=== PATIENT | male | born 1935 | race African-American/Black ===

== ENCOUNTER → 2016-06-05 | Outpatient (CLI) | payer BC ==
[~2016-06-05] MED LIST: ALL300 PO; AMLO5CAP2 PO; APR25 PO; ASTNS; CETICHW4; CMD25 PO; CMD5 PO; FISHOIL PO; FRS/40 PO; MULT-190 PO; MULT-506 PO; POTA-335 PO; WARF3TAB6 PO; [UNRECOGNIZED DRUG - CODE] PO
[2016-06-05 13:36] LABS: HEMATOCRIT 34.3 % (42-52); MEAN CELL VOLUME 88.6 fL (80-100); MEAN CORPUSCULAR HEMOGLOBIN 29.5 pg (25-34); MEAN CORPUSCULAR HGB CONC 33.2 g/dl (32-36); MEAN PLATELET VOLUME 13.1 fL (7.4-10.4); PLATELET COUNT 154 K/uL (130-400); RED BLOOD COUNT 3.87 M/uL (4.7-6.1); WHITE BLOOD COUNT 4.14 K/uL (4.8-10.8)
[2016-06-05 13:41] LABS: URINE APPEARANCE TURBID (CLEAR); URINE BILIRUBIN NEG (NEG); URINE COLOR YELLOW; URINE EPITHELIAL CELL AUTO >30 /lpf (0-5); URINE NITRITE NEG (NEG); URINE SPECIFIC GRAVITY 1.007 (1.000-1.030); UROBILINOGEN NEG (NEG)
[2016-06-05 13:54] LABS: MANUAL MICROSCOPIC REQUIRED? NO; REVIEW REQ? NO
[2016-06-05 14:05] LABS: URINE PROTIEN/CREAT RATIO 0.8 (0-0.2); URINE TOTAL PROTEIN 58.4 mg/dl (0-11.9)
[2016-06-05 14:07] LABS: BLOOD UREA NITROGEN 40 mg/dl (7-18); BUN/CREATININE RATIO 20.2 (10-20); CARBON DIOXIDE 26 mmol/L (21-32); CHLORIDE 108 mmol/L (98-107); GLUCOSE 102 mg/dl (70-99); PHOSPHORUS 3.8 mg/dl (2.5-4.9); POTASSIUM 4.3 mmol/L (3.5-5.1); SODIUM 140 mmol/L (136-145)
== END | disposition home or self-care (01) ==
LOC: C.LABBC 10:51
PROVIDERS: ATTEND Internal Medicine Nephrology
DX: I12.9 Hypertensive chronic kidney disease with stage 1 through stage 4 chronic kidney disease, or unspecified chronic kidney disease (principal); R80.9 Proteinuria, unspecified; E55.9 Vitamin D deficiency, unspecified; N18.3 Chronic kidney disease, stage 3 (moderate)

== ENCOUNTER → 2016-06-24 | Outpatient (CLI) | payer BC | END | disposition home or self-care (01) | LOC: C.LAB1850 09:47 | PROVIDERS: ATTEND Internal Medicine Nephrology | DX: R80.9 Proteinuria, unspecified (principal); I12.9 Hypertensive chronic kidney disease with stage 1 through stage 4 chronic kidney disease, or unspecified chronic kidney disease; N18.3 Chronic kidney disease, stage 3 (moderate); E55.9 Vitamin D deficiency, unspecified ==

== ENCOUNTER → 2016-07-13 | Outpatient (CLI) | payer BC ==
[2016-07-13 16:43] LABS: URINE APPEARANCE TURBID (CLEAR); URINE BILIRUBIN NEG (NEG); URINE COLOR YELLOW; URINE EPITHELIAL CELL AUTO 0-5 /lpf (0-5); URINE NITRITE NEG (NEG); URINE SPECIFIC GRAVITY 1.013 (1.000-1.030); UROBILINOGEN NEG (NEG)
[2016-07-13 16:44] LABS: MANUAL MICROSCOPIC REQUIRED? NO; REVIEW REQ? NO
== END | disposition home or self-care (01) ==
LOC: C.LAB1850 15:30
PROVIDERS: ATTEND Internal Medicine Nephrology
DX: R30.0 Dysuria (principal)

== ENCOUNTER → 2016-09-16 | Outpatient (CLI) | payer BC ==
[2016-09-16 17:08] LABS: URINE APPEARANCE TURBID (CLEAR); URINE BILIRUBIN NEG (NEG); URINE COLOR YELLOW; URINE NITRITE NEG (NEG); URINE PH 5.5 (4.5-7.5); URINE SPECIFIC GRAVITY 1.012 (1.000-1.030); UROBILINOGEN NEG (NEG); ZZUR CULT IF INDIC CLEAN CATCH YES
[2016-09-16 17:15] LABS: MANUAL MICROSCOPIC REQUIRED? NO; REVIEW REQ? NO
[2016-09-16 17:23] LABS: BLOOD UREA NITROGEN 25 mg/dl (7-18); BUN/CREATININE RATIO 14.4 (10-20); CALCIUM 8.5 mg/dl (8.5-10.1); CARBON DIOXIDE 29 mmol/L (21-32); CHLORIDE 112 mmol/L (98-107); GLUCOSE 76 mg/dl (70-99); POTASSIUM 4.1 mmol/L (3.5-5.1); SODIUM 147 mmol/L (136-145)
[2016-09-16 17:24] LABS: PHOSPHORUS 2.5 mg/dl (2.5-4.9)
[2016-09-16 17:49] LABS: HEMATOCRIT 33.1 % (42-52); MEAN CELL VOLUME 91.9 fL (80-100); MEAN CORPUSCULAR HGB CONC 32.6 g/dl (32-36); MEAN PLATELET VOLUME 12.5 fL (7.4-10.4); PLATELET COUNT 112 K/uL (130-400); PLT ESTIMATE DECREASED; WHITE BLOOD COUNT 3.44 K/uL (4.8-10.8)
== END ==
LOC: C.LAB1850 15:13
PROVIDERS: ATTEND Internal Medicine Nephrology
DX: I10 Essential (primary) hypertension (principal); R80.9 Proteinuria, unspecified; N18.3 Chronic kidney disease, stage 3 (moderate); E55.9 Vitamin D deficiency, unspecified

== ENCOUNTER → 2017-01-25 | Outpatient (CLI) | payer BC ==
[~2017-01-25] MED LIST changes: -CMD25 PO; -CMD5 PO
--- NOTE | 2017-01-25 10:50 | DIAGNOSTIC IMAGING REPORT ---
RENAL ULTRASOUND HISTORY: R31.29 Hematuria, [id number] COMPARISON: Renal ultrasound 04/27/2013. FINDINGS: Right kidney: 10.7 cm. No hydronephrosis. Slight increased echogenicity within the renal cortex. There is normal cortical thickness. Left kidney: 11.4 cm. No hydronephrosis. Slight increased echogenicity within the renal cortex. There is normal cortical thickness. Bladder: Mildly thickened and trabeculated bladder. The prostate is mildly enlarged and protrudes into the bladder base. Small amount of debris layering within the bladder. The ureters jets are not identified. There is a multiloculated cystic lesion within the left upper quadrant anteriorly. This is indeterminate by ultrasound. This measures 13 x 12 x 7 cm. IMPRESSION: 1. No hydronephrosis. 2. Slight increased cortical echogenicity bilaterally consistent with medical renal disease. 3. Mildly thickened and trabeculated bladder wall. The prostate is mildly enlarged. Small amount of debris within the bladder may be due to stasis or infection. Recommend correlation with urinalysis. 4. A 13 x 12 x 7 cm multiloculated cystic lesion within the left upper quadrant anteriorly. This is indeterminate by ultrasound. Dedicated nonemergent abdomen and pelvis CT with contrast is recommended for further evaluation. Electronically signed by: Bg Lewis M.D. 01/25/2017 10:49 AM Dictated Date/Time: 01/25/2017 10:43 AM
== END | disposition home or self-care (01) ==
LOC: C.ULTR 09:56
PROVIDERS: ATTEND Urology
DX: R31.29 Other microscopic hematuria (principal); N28.9 Disorder of kidney and ureter, unspecified

== ENCOUNTER → 2017-01-25 | Outpatient (CLI) | payer BC | END | disposition home or self-care (01) | LOC: C.LABSPEC 10:36 | PROVIDERS: ATTEND Urology | DX: R31.29 Other microscopic hematuria (principal) ==

== ENCOUNTER → 2017-03-22 | Outpatient (CLI) | payer BC ==
[2017-03-22 17:49] LABS: BLOOD UREA NITROGEN 25 mg/dl (7-18); BUN/CREATININE RATIO 14.9 (10-20)
== END | disposition home or self-care (01) ==
LOC: C.LAB1850 16:24
PROVIDERS: ATTEND Urology
DX: N28.1 Cyst of kidney, acquired (principal)

== ENCOUNTER → 2017-03-24 | Outpatient (CLI) | payer BC ==
--- NOTE | 2017-03-24 10:53 | DIAGNOSTIC IMAGING REPORT ---
ABDOMEN AND PELVIS CT WITH IV CONTRAST, RENAL PROTOCOL CT DOSE: 982.80 mGycm HISTORY: N28.1 Renal cyst, left possible left cystic lesion seen on US at TECHNIQUE: Multiaxial CT images of the abdomen and pelvis were performed following the use of intravenous contrast. A dose lowering technique was utilized adhering to the principles of ALARA. COMPARISON STUDY: Renal ultrasound 01/25/2017. FINDINGS: Small calcified scarlike density within the base of the lingula. Pacemaker wires are noted. Linear scarlike densities within the right lower lobe with mild right pleural thickening which is also likely chronic. No pneumoperitoneum. No pneumatosis. No suspicious lytic or blastic osseous lesions. A 9 mm hypodense lesion within the right hepatic dome is too small to characterize. The spleen, adrenal glands, pancreas, and gallbladder are unremarkable. No retroperitoneal lymphadenopathy. Tiny fat-containing umbilical hernia. The visualized appendix is unremarkable. Within the left midabdomen there is redemonstration of the 12.9 x 7.2 cm cystic structure. This contains a few thin septations. This abuts and displaces a few loops of small bowel. No soft tissue component identified with this abnormality. No suspicious filling defects seen within the bilateral renal collecting systems. In addition, within the right lower quadrant there is only partially visualized cystic structure which demonstrates minimal surrounding fat stranding. This is best seen on image 271 and measures 3.5 cm. This could represent a mildly distended small bowel loop. IMPRESSION: 1. Redemonstration of the 12.9 x 7.2 cm septated cystic structure within the left midabdomen. This is not associated with the left kidney. Therefore, this could represent a lymphangioma, duplication cyst, or less likely a walled off urinoma. 2. There is also partially imaged 3.5 cm cystic structure within the right lower quadrant. This appears to demonstrate minimal surrounding fat stranding could represent a distended loop of small bowel. Therefore, follow-up abdomen and pelvis CT with oral contrast is recommended to exclude bowel pathology. 3. These findings were called/faxed to the referring physician's office. Electronically signed by: Bg Lewis M.D. 03/24/2017 10:51 AM Dictated Date/Time: 03/24/2017 10:40 AM
== END | disposition home or self-care (01) ==
LOC: C.CTS 09:46
PROVIDERS: ATTEND Urology
DX: N28.1 Cyst of kidney, acquired (principal)

== ENCOUNTER → 2017-08-12 | Outpatient (CLI) | payer BC ==
[~2017-08-12] MED LIST changes: -MULT-506 PO; -WARF3TAB6 PO; +WARF4TAB8 PO
[2017-08-12 17:06] LABS: MEAN CORPUSCULAR HGB CONC 33.2 g/dl (32-36)
[2017-08-12 17:16] LABS: ALBUMIN 3.2 gm/dl (3.4-5.0); ALT/SGPT 20 U/L (12-78); AST/SGOT 23 U/L (15-37); BLOOD UREA NITROGEN 37 mg/dl (7-18); CALCIUM 8.5 mg/dl (8.5-10.1); CARBON DIOXIDE 27 mmol/L (21-32); CREATININE 1.95 mg/dl (0.60-1.40); GLUCOSE 78 mg/dl (70-99); SODIUM 144 mmol/L (136-145)
[2017-08-12 17:19] LABS: ALKALINE PHOSPHATASE 55 U/L (45-117); PHOSPHORUS 3.2 mg/dl (2.5-4.9); TOTAL PROTEIN 6.9 gm/dl (6.4-8.2)
[2017-08-12 17:21] LABS: HEMOGLOBIN 10.3 g/dL (14.0-18.0); MEAN CELL VOLUME 89.6 fL (80-100); MEAN CORPUSCULAR HEMOGLOBIN 29.8 pg (25-34); RED CELL DISTRIBUTION WIDTH CV 14.5 % (11.5-14.5); RED CELL DISTRIBUTION WIDTH SD 47.7 fL (36.4-46.3); WHITE BLOOD COUNT 3.78 K/uL (4.8-10.8)
[2017-08-12 17:36] LABS: PLATELET COUNT 127 K/uL (130-400)
== END | disposition home or self-care (01) ==
LOC: C.LABBC 13:46
PROVIDERS: ATTEND Internal Medicine Nephrology
DX: I10 Essential (primary) hypertension (principal); R80.9 Proteinuria, unspecified; E55.9 Vitamin D deficiency, unspecified; N18.3 Chronic kidney disease, stage 3 (moderate); R31.29 Other microscopic hematuria; I42.9 Cardiomyopathy, unspecified; I48.91 Unspecified atrial fibrillation

== ENCOUNTER → 2017-08-16 | Outpatient (CLI) | payer BC | END | disposition home or self-care (01) | LOC: C.LABSPEC 09:09 | PROVIDERS: ATTEND Internal Medicine Nephrology | DX: I12.9 Hypertensive chronic kidney disease with stage 1 through stage 4 chronic kidney disease, or unspecified chronic kidney disease (principal); R80.9 Proteinuria, unspecified; E55.9 Vitamin D deficiency, unspecified; N18.3 Chronic kidney disease, stage 3 (moderate); R31.29 Other microscopic hematuria ==

== ENCOUNTER → 2017-11-30 | Outpatient (CLI) | payer BC ==
--- NOTE | 2017-11-30 12:07 | DIAGNOSTIC IMAGING REPORT ---
ABD/PELVIS ORAL CONT ONLY CLINICAL HISTORY: 82 years-old Male presenting with K66.8 Abdominal cyst. TECHNIQUE: Multidetector CT of the abdomen and pelvis was performed after the administration of oral contrast only. IV contrast: None. A dose lowering technique was used consistent with the principles of ALARA (as low as reasonably achievable). COMPARISON: 03/24/2017. CT DOSE (mGy.cm): The estimated cumulative dose is 321.88 mGy.cm. FINDINGS: Physiognomist topogram: Partially visualized implanted cardiac defibrillator leads to the right atrium, right ventricular apex, and coronary sinus. Lung bases: Architectural distortion with focal bronchiectasis, subpleural consolidation, and overlying pleural thickening in the posterior basal right lower lobe, likely cicatrizing atelectasis. Multichamber enlargement of the heart. Coronary artery and aortic valve calcification. No pericardial or pleural effusion. Liver: Normal morphology. Normal density. Biliary: No gross biliary ductal dilatation allowing for noncontrast technique. Normal gallbladder. Pancreas: Normal noncontrast appearance. Spleen: Normal noncontrast appearance. Adrenal glands: Normal noncontrast appearance. Kidneys and ureters: Normal noncontrast appearance. No nephrolithiasis. No hydronephrosis. Normal ureters. Bladder: Circumferential bladder wall thickening. The bladder contains a large amount of gas. Numerous bladder diverticuli, which also contains gas. There is no gross communication with bowel though the etiology of the gas is uncertain. Pelvic organs: Prostate enlargement likely secondary to benign prostatic hyperplasia. Bowel: Oral contrast has transited to the distal sigmoid colon. Diverticulosis of the sigmoid and descending colon without evidence of wall thickening or pericolonic inflammatory change. No extravasation of oral contrast. The appendix is normal. No bowel obstruction. Redundancy and incomplete distention likely accounts for the appearance of the gastric fundus. Peritoneal cavity: Interval decrease in size of the cystic lesion centered in the left aspect of the small bowel mesentery. This now measures 8.7 x 6.7 cm, previously 12.9 x 7.2 cm. Septations are not well appreciated on this noncontrast examination. The density is again consistent with simple fluid. No evidence of surrounding inflammatory change. No free fluid or gas. Lymph nodes: No gross lymphadenopathy allowing for noncontrast technique. Vasculature: Atherosclerosis of the normal caliber abdominal aorta. Abdominal wall: Mild diffuse body wall edema. Small fat-containing umbilical hernia. Focal infiltration in the subcutaneous tissue of the left buttock with suggestion of a fluid collection measuring approximate 4 cm. This is centered within the subcutaneous fat. Allowing for image quality degradation, there may be macroscopic fat-containing within this. Musculoskeletal: Focal degenerative changes at L5-S1. IMPRESSION: 1. Interval decreased size of the abdominal cyst. This is suspected to be a benign entity and may represent a mesenteric duplication cyst, lymphangioma, or resolving urinoma or seroma. This is suboptimally evaluated without intravenous contrast. 2. Wall thickening of the bladder with numerous bladder diverticuli and intravesical gas. Correlate clinically with a history of recent instrumentation/catheterization to explain the presence of gas. No gross evidence of a fistulous connection with bowel. The configuration of the bladder may suggest a neurogenic bladder or be due to chronic outlet obstruction in the setting of prostatomegaly. 3. Diverticulosis. No evidence of diverticulitis. 4. 4 cm fluid collection in the subcutaneous tissue of the left buttock. This may represent an abscess or fat necrosis. This is suboptimally evaluated given the lack of intravenous contrast and image quality. Further violation with dedicated ultrasound to be considered. Correlate with physical exam. The report will be called/faxed according to standard departmental protocol. Electronically signed by: Aj Hernandez M.D. 11/30/2017 12:06 PM Dictated Date/Time: 11/30/2017 11:53 AM
== END | disposition home or self-care (01) ==
LOC: C.CTS 09:37
PROVIDERS: ATTEND Physician Assistant Medical
DX: K66.8 Other specified disorders of peritoneum (principal); K57.90 Diverticulosis of intestine, part unspecified, without perforation or abscess without bleeding

== ENCOUNTER 2018-10-10 11:51 | Inpatient (IN) ==
[2018-10-10] MEDS ORDERED: SODIUM CHLORIDE 0.9% 500 ML IV SCH (12:30)
[2018-10-10 12:48] LABS: iSTAT Creatinine 1.7 mg/dl (0.6-1.3); iSTAT Hemoglobin 9.5 g/dl (14.0-18.0); iSTAT Ionized Calcium 1.19 mmol/l (1.12-1.32); iSTAT Potassium 3.7 mEq/L (3.3-5.0)
[2018-10-10 12:49] LABS: Mean Corpuscular Hgb Conc 31.5 g/dL (32-36)
[2018-10-10 12:58] LABS: Alanine Aminotransferase 13 U/L (12-78); Albumin Level 2.7 gm/dl (3.4-5.0); Aspartate Aminotransferase 24 U/L (15-37); BUN Creatinine Ratio 14.7 (10-20); Blood Urea Nitrogen 26 mg/dl (7-18); Calcium 8.6 mg/dl (8.5-10.1); Carbon Dioxide 28 mmol/L (21-32); Chloride 110 mmol/L (98-107); Est GFR (African American) 41.4; Est GFR (Non-African American) 35.7; Glucose 98 mg/dl (70-99); Potassium 3.7 mmol/L (3.5-5.1); Sodium 144 mmol/L (136-145)
[2018-10-10 13:02] LABS: INR 1.8 (0.9-1.1); Partial Thromboplastin Ratio 1.3; Partial Thromboplastin Time 34.3 Seconds (21.0-31.0); Prothrombin Time 17.3 Seconds (9.0-12.0)
[2018-10-10 13:08] LABS: Albumin Globulin Ratio 0.6 (0.9-2); Alkaline Phosphatase 56 U/L (45-117); Bilirubin,Total 0.4 mg/dl (0.2-1); Globulin 4.7 gm/dl (2.5-4.0); Total Protein 7.4 gm/dl (6.4-8.2); Troponin I 0.023 ng/ml (0-0.045)
--- NOTE | 2018-10-10 13:09 | XRay Report ---
XR chest 1V portable CLINICAL HISTORY: weakness condition COMPARISON STUDY: 08/25/2018 FINDINGS: Mild stable cardiomegaly. Implantable cardiac pacemaker/fibrillator. Chronic right infrahil ar atelectatic change. Lungs are clear. IMPRESSION: No acute processes. Chronic and postoperative change. The above report was generated using voice recognition software. It may contain grammatical, syntax or spelling errors. Electronically signed by: Deni Harrison M.D. 10/10/2018 1:08 PM
[2018-10-10 13:19] LABS: Hematocrit (blood only) 27.3 % (42-52); Hemoglobin 8.6 g/dL (14.0-18.0); Mean Corpuscular Volume 87.8 fL (80-100); RDW Coefficient of Variation 16.2 % (11.5-14.5); RDW Standard Deviation 52.2 fL (36.4-46.3); Red Blood Count 3.11 M/uL (4.7-6.1); White Blood Count 4.07 K/uL (4.8-10.8)
--- NOTE | 2018-10-10 13:20 | CT Scan Report ---
CT head/brain wo con CT DOSE: 691.05 mGy.cm HISTORY: Trauma weakness, fall, coumadin TECHNIQUE: Multiaxial CT images of the head were performed without the use of intravenous contrast. A dose lowering technique was utilized adhering to the principles of ALARA. Comparison: None. Findings: The paranasal sinuses and mastoid air cells are clear. The calvarium and skull base are int act. The ventricles and sulci are within normal limits. There is no mass, hematoma, midline shift, or acute infarct. 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 Moderate chronic small vessel change the periventricular and deep white matter regions. No evidence for acute intracranial hemorrhage. Impression: No acute intracranial abnormality. 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 The above report was generated using voice recognition software. It may contain grammatical, syntax or spelling errors. Electronically signed by: Deni Harrison M.D. 10/10/2018 1:19 PM
[2018-10-10 13:21] LABS: T4 Free Thyroxine 1.04 ng/dl (0.8-1.6)
[2018-10-10 13:26] LABS: Basophils # (auto) 0.02 K/uL (0-0.2); Basophils % (auto) 0.5 %; Eosinophils # (auto) 0.69 K/uL (0-0.5); Immature Granulocytes # (auto) 0.01 K/uL (0.00-0.02); Immature Granulocytes % (auto) 0.2 %; Lymphocytes # (auto) 0.89 K/uL (1.2-3.4); Lymphocytes % (auto) 21.9 %; Monocytes % (auto) 4.9 %; Neutrophils # (auto) 2.26 K/uL (1.4-6.5); Neutrophils % (auto) 55.5 %; Platelet Count 116 K/uL (130-400); Platelet Estimate Decreased (Normal); RBC Morphology Unremarkable
[2018-10-10 13:50] LABS: Appearance Urine Cloudy (Clear); Bacteria Urine Automated 4+ (Negative); Bilirubin Urine Negative (Negative); Blood Urine Trace (Negative); Color Urine Yellow; Glucose Urine UA Negative (Negative); Ketones Urine Negative (Negative); Leukocyte Esterase Urine 3+ (Negative); Nitrite Urine Positive (Negative); Protein Urine Trace (Negative); RBC Urine Automated 0-4 /hpf (0-4); Specific Gravity Urine 1.015 (1.000-1.030); Urobilinogen Urine Negative (Negative); WBC Urine Automated >30 /hpf (0-5)
--- NOTE | 2018-10-10 15:31 | Emergency Department Note ---
Entered by Anali Lopez acting as a scribe for Rekha Paris MD History of Present Illness General Chief complaint: Fall Stated complaint: OPEN SORE ON BUTT Source: patient and family Mode of arrival: ambulatory Limitations: no limitations History of Present Illness Provider complaint: sore Onset (ago): week(s) (1.5) Location: buttocks and right Pain Consistency: + other (worsening) Quality: + other (black and open) Associated symptoms: + denies other symptoms (neck pain, back pain, hematocheiza), + cough, + loss of appetite and + other (leg swelling); no chest pain and no shortness of breath The patient is an 83 year old male who presents to the ER with complaints of a worsening sore that began 1.5 weeks ago. The patients reports that he fell again yesterday and when she was helping him up, she noticed that he had a black and open sore on his right buttock. The also expresses concern about the patients recent 40 pound weight loss over the past few months. She explains that he has had a loss of appetite. She denies having a colonoscopy recently performed. She states that the patient is on Coumadin for his history of a stroke and PE. The patient denies any chest pain, shortness of breath, neck pain, back pain or hematochezia but notes he has had worsening leg swelling. He also reports he has had a mild cough. He denies a history of diabetes. Home Medications Home Medications Medication Instructions Recorded Confirmed Type donepezil 5 mg tablet 5 mg PO QPM #90 tab 09/12/18 10/10/18 History dutasteride 0.5 mg capsule 0.5 mg PO QAM #90 cap 09/12/18 10/10/18 History furosemide 40 mg tablet 40 mg PO QAM #90 tab 09/12/18 10/10/18 History potassium chloride ER 10 mEq 10 meq PO QAM #90 tab 09/12/18 10/10/18 History tablet,extended release tamsulosin 0.4 mg capsule 0.4 mg PO HS #90 cap 09/12/18 10/10/18 History allopurinol 300 mg tablet 300 mg PO QAM #90 tab 09/14/18 10/10/18 History azelastine 137 mcg (0.1 %) nasal 2 sprays INTRANASAL DAILY PRN ml 09/14/18 10/10/18 History spray aerosol carvedilol 25 mg tablet 25 mg PO BID #180 tab 09/14/18 10/10/18 History ergocalciferol (vitamin D2) 50,000 50,000 units PO MONTHLY #21 cap 09/14/18 10/10/18 History unit capsule warfarin 4 mg tablet 4 mg PO [id number] tab 10/06/18 10/10/18 History amlodipine-benazepril 1 cap PO QAM 10/10/18 10/10/18 History hydralazine 50 mg PO TID 10/10/18 10/10/18 History mirtazapine [Remeron] 7.5 mg PO HS 10/10/18 10/10/18 History warfarin 2 mg PO 3XWK 10/10/18 10/10/18 History Allergies Allergy/AdvReac Type Severity Reaction Status Date / Time No Known Drug Allergies Allergy Verified 10/10/18 13:48 Past Med/Surg History Medical History Permanent atrial fibrillation (Chronic) 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) Chronic anticoagulation (Chronic) H/O: stroke (Chronic) HTN (hypertension) (Chronic) Obstructive sleep apnea CHF (congestive heart failure), NYHA class II (Chronic 07/25/13) LBBB (left bundle branch block) (Chronic 07/25/13) 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 and A total of 10 systems reviewed and were otherwise negative Physical Exam Vital Signs Vital Signs - 24 hr 10/10/18 11:57 10/10/18 12:17 10/10/18 13:07 Temperature 36.8 C Temperature Source Oral Sepsis Recent Fever Within 48 Hours No Sepsis New/Unexplained Change in Mental Status No Sepsis Action Taken by Nursing No Action Required Pulse Rate - Lying 78 Pulse Rate - Sitting 73 Pulse Rate 102 H 75 Pulse Rate [Right Finger] Pulse Rhythm Regular Regular Pulse Strength Normal Respiratory Rate 20 18 Respiratory Effort / Characteristics Non-Labored Spontaneous Respiratory Depth Normal Respiratory Pattern Regular Blood Pressure - Lying 132/76 Blood Pressure - Sitting 140/73 Blood Pressure 112/72 Blood Pressure [Left Arm] Blood Pressure Mean 85 Blood Pressure Mean [Left Arm] Blood Pressure Position Sitting Blood Pressure Position [Left Arm] Pulse Oximetry 99 96 Oxygen Delivery Method Room Air Room Air 10/10/18 13:53 10/10/18 15:00 Temperature 37.1 C Temperature Source Oral Sepsis Recent Fever Within 48 Hours Sepsis New/Unexplained Change in Mental Status Sepsis Action Taken by Nursing Pulse Rate - Lying Pulse Rate - Sitting Pulse Rate Pulse Rate [Right Finger] 80 78 Pulse Rhythm Pulse Strength Respiratory Rate 18 16 Respiratory Effort / Characteristics Non-Labored Respiratory Depth Normal Normal Respiratory Pattern Regular Regular Blood Pressure - Lying Blood Pressure - Sitting Blood Pressure Blood Pressure [Left Arm] 123/63 132/87 Blood Pressure Mean Blood Pressure Mean [Left Arm] 83 102 Blood Pressure Position Blood Pressure Position [Left Arm] Lying Lying Pulse Oximetry 100 100 Oxygen Delivery Method Room Air Room Air Vital signs reviewed. General: Cachectic elderly, in no significant distress. HEENT: No scleral icterus, PERRLA, neck supple. Atraumatic. Cardiovascular: Regular rate and rhythm, no extra sounds. Pulmonary: Clear to auscultation bilaterally, normal work of breathing. Abdomen: Soft, nontender, nondistended, positive bowel sounds. Musculoskeletal: Atraumatic, no peripheral edema. Neurologic: Patient awake alert and oriented x 3, full strength in all 4 extremities. Cranial nerves 2 through 12 grossly intact. Rectal: Guaiac negative, minimal stool Skin: Warm, dry, no rash. Healing left buttock pressure ulcer approximately stage 2. Course 2115: Past medical records reviewed. The patient was [facility] A complete history and physical examination was performed. 1457: I discussed the patients case with Dr. London. She will evaluate the patient for further management. Administered Medications Allopurinol (Zyloprim) 300 mg PO QAM [facility] Stop: 11/10/18 08:59 Last Admin: 10/11/18 09:02 Dose: 300 mg Documented by: [id number] Donepezil HCl (Aricept) 5 mg PO QPM [facility] Stop: 11/09/18 20:59 Last Admin: 10/10/18 22:07 Dose: 5 mg Documented by: [id number] Ergocalciferol (Vitamin D2) 50,000 units PO Q30D [facility] Stop: 11/09/18 17:59 Last Admin: 10/10/18 18:58 Dose: 50,000 units Documented by: [id number] [facility] [place] [facility] Stop: 11/10/18 08:59 Last Admin: 10/11/18 09:02 Dose: 40 mg Documented by: [id number] Ceftriaxone Sodium 2,000 mg/ (Dextrose) 70 mls @ 100 mls/hr IV Q24H [facility]; Protocol Stop: 10/20/18 17:59 Last Infusion: 10/10/18 20:10 Dose: 0 mls/hr Documented by: [id number] Admin: 10/10/18 18:58 Dose: 100 mls/hr Documented by: [id number] [facility]othy[facility]ine [facility]: 11/10/18 09:14 Last Admin: 10/11/18 10:09 Dose: 25 mcg Documented by: [id number] Mirtazapine (Remeron) 7.5 mg PO [facility] Stop: 11/09/18 20:59 Last Admin: 10/10/18 22:07 Dose: 7.5 mg Documented by: [id number] Miscellaneous (Order Awaiting Action) 1 ea N/A QS [facility] Stop: 11/10/18 00:00 Last Admin: 10/11/18 08:30 Dose: Not Given Documented by: [id number] Admin: 10/11/18 01:42 Dose: Not Given Documented by: [id number] Miscellaneous (Order Awaiting Action) 1 ea N/A QS [facility] Stop: 11/10/18 00:00 Last Admin: 10/11/18 08:30 Dose: Not Given Documented by: [id number] Admin: 10/11/18 01:42 Dose: Not Given Documented by: [id number] Potassium Chloride (Klor-Con M10) [facility] [place] Stop: 11/10/18 08:59 Last Admin: 10/11/18 09:02 Dose: 10 meq Documented by: [id number] Tamsulosin HCl (Flomax) 0.4 mg PO [facility] Stop: 11/09/18 20:59 Last Admin: 10/10/18 22:07 Dose: 0.4 mg Documented by: [id number] Discontinued Medications Sodium Chloride (Nss) 500 mls @ 999 mls/hr IV .Q31M [facility] Stop: 10/10/18 13:00 Last Infusion: 10/10/18 13:19 Dose: 0 mls/hr Documented by: [id number] Admin: 10/10/18 12:48 Dose: 999 mls/hr Documented by: [id number] Medical Decision Making Differential Diagnosis Differential diagnosis includes: dehydration, stroke, anemia, hypoglycemia, hyponatremia, hypernatremia, urinary tract infection, pneumonia, bronchitis, sepsis, gastroenteritis, additional abdominal pathology, metabolic abnormalities and infections. Medical Records Attestation: I reviewed the patient's medical records. Home Medications Current Medication List: was personally reviewed by me Laboratory Data Attestation: I reviewed the patient's lab results. Result diagrams: 10/11/18 06:45 10/11/18 06:45 Lab Results 10/10/18 10/10/18 10/10/18 Range/Units 12:29 12:29 12:29 WBC 4.07 L (4.8-10.8) K/uL RBC 3.11 L (4.7-6.1) M/uL Hgb 8.6 L (14.0-18.0) g/dL POC Hgb (14.0-18.0) g/dl Hct 27.3 L (42-52) % POC Hct (42-52) % MCV 87.8 (80-100) fL MCH 27.7 (25-34) pg MCHC 31.5 L (32-36) g/dL RDW Std Deviation 52.2 H (36.4-46.3) fL RDW Coeff of Shabnam 16.2 H (11.5-14.5) % Plt Count 116 L (130-400) K/uL Immature Gran % (Auto) 0.2 % Neut % (Auto) 55.5 % Lymph % (Auto) 21.9 % Callahan % (Auto) 4.9 % Eos % (Auto) 17.0 % Baso % (Auto) 0.5 % Immature Gran # (Auto) 0.01 (0.00-0.02) K/uL Neut # (Auto) 2.26 (1.4-6.5) K/uL Lymph # (Auto) 0.89 L (1.2-3.4) K/uL Callahan # (Auto) 0.20 (0.11-0.59) K/uL Eos # (Auto) 0.69 H (0-0.5) K/uL Baso # (Auto) 0.02 (0-0.2) K/uL Platelet Estimate Decreased L (Normal) RBC Morphology Unremarkable PT (9.0-12.0) Seconds INR (0.9-1.1) APTT (21.0-31.0) Seconds PTT Ratio POC Sodium (135-144) mEq/L Sodium 144 (136-145) mmol/L POC Potassium (3.3-5.0) mEq/L Potassium 3.7 (3.5-5.1) mmol/L POC Chloride (101-112) mEq/L Chloride 110 H (98-107) mmol/L Carbon Dioxide 28 (21-32) mmol/L POC Total CO2 (24-31) mEq/l Anion Gap 6.0 (3-11) POC Anion Gap (16-25) mmol/L POC BUN (7-18) mg/dl BUN 26 H (7-18) mg/dl Creatinine 1.74 H (0.6-1.4) mg/dl POC Creatinine (0.6-1.3) mg/dl Est Cr Clr Drug Dosing Not Reportable Est GFR ( Amer) 41.4 Est GFR (Non-Af Amer) 35.7 BUN/Creatinine Ratio 14.7 (10-20) Glucose 98 (70-99) mg/dl POC Glucose (other) (70-99) mg/dl Calcium 8.6 (8.5-10.1) mg/dl POC Ioniz Calcium Steve (1.12-1.32) mmol/l Magnesium 2.0 (1.8-2.4) mg/dl Total Bilirubin 0.4 (0.2-1) mg/dl AST 24 (15-37) U/L ALT 13 (12-78) U/L Alkaline Phosphatase 56 (45-117) U/L Troponin I 0.023 (0-0.045) ng/ml Total Protein 7.4 (6.4-8.2) gm/dl Albumin 2.7 L (3.4-5.0) gm/dl Globulin 4.7 H (2.5-4.0) gm/dl Albumin/Globulin Ratio 0.6 L (0.9-2) TSH 7.390 H (0.300-4.500) uIu/ml Free T4 1.04 (0.8-1.6) ng/dl Urine Color Urine Appearance (Clear) Urine pH (4.5-7.5) Ur Specific [place] (1.000-1.030) Urine Protein (Negative) Urine Glucose (UA) (Negative) Urine Ketones (Negative) Urine Blood (Negative) Urine Nitrite (Negative) Urine Bilirubin (Negative) Urine Urobilinogen (Negative) Ur Leukocyte Esterase (Negative) Urine WBC (Auto) (0-5) /hpf Urine RBC (Auto) (0-4) /hpf U Hyaline Cast (Auto) (0-5) /lpf U Epithel Cells (Auto) (0-5) /lpf Urine Bacteria (Auto) (Negative) Lyme Disease IgG Ab (Negative) Lyme Disease IgM Ab (Negative) Blood Type B Positive Antibody Screen NEGATIVE 10/10/18 10/10/18 10/10/18 Range/Units 12:29 12:30 12:36 WBC (4.8-10.8) K/uL RBC (4.7-6.1) M/uL Hgb (14.0-18.0) g/dL POC Hgb 9.5 L (14.0-18.0) g/dl Hct (42-52) % POC Hct 28 L (42-52) % MCV (80-100) fL MCH (25-34) pg MCHC (32-36) g/dL RDW Std Deviation (36.4-46.3) fL RDW Coeff of Shabnam (11.5-14.5) % Plt Count (130-400) K/uL Immature Gran % (Auto) % Neut % (Auto) % Lymph % (Auto) % Callahan % (Auto) % Eos % (Auto) % Baso % (Auto) % Immature Gran # (Auto) (0.00-0.02) K/uL Neut # (Auto) (1.4-6.5) K/uL Lymph # (Auto) (1.2-3.4) K/uL Callahan # (Auto) (0.11-0.59) K/uL Eos # (Auto) (0-0.5) K/uL Baso # (Auto) (0-0.2) K/uL Platelet Estimate (Normal) RBC Morphology PT 17.3 H (9.0-12.0) Seconds INR 1.8 H (0.9-1.1) APTT 34.3 H (21.0-31.0) Seconds PTT Ratio 1.3 POC Sodium 144 (135-144) mEq/L Sodium (136-145) mmol/L POC Potassium 3.7 (3.3-5.0) mEq/L Potassium (3.5-5.1) mmol/L POC Chloride 107 (101-112) mEq/L Chloride (98-107) mmol/L Carbon Dioxide (21-32) mmol/L POC Total CO2 24 (24-31) mEq/l Anion Gap (3-11) POC Anion Gap 18.0 (16-25) mmol/L POC BUN 26 H (7-18) mg/dl BUN (7-18) mg/dl Creatinine (0.6-1.4) mg/dl POC Creatinine 1.7 H (0.6-1.3) mg/dl Est Cr Clr Drug Dosing Est GFR ( Amer) Est GFR (Non-Af Amer) BUN/Creatinine Ratio (10-20) Glucose (70-99) mg/dl POC Glucose (other) 98 (70-99) mg/dl Calcium (8.5-10.1) mg/dl POC Ioniz Calcium Steve 1.19 (1.12-1.32) mmol/l Magnesium (1.8-2.4) mg/dl Total Bilirubin (0.2-1) mg/dl AST (15-37) U/L ALT (12-78) U/L Alkaline Phosphatase (45-117) U/L Troponin I (0-0.045) ng/ml Total Protein (6.4-8.2) gm/dl Albumin (3.4-5.0) gm/dl Globulin (2.5-4.0) gm/dl Albumin/Globulin Ratio (0.9-2) TSH (0.300-4.500) uIu/ml Free T4 (0.8-1.6) ng/dl Urine Color Urine Appearance (Clear) Urine pH (4.5-7.5) Ur Specific [place] (1.000-1.030) Urine Protein (Negative) Urine Glucose (UA) (Negative) Urine Ketones (Negative) Urine Blood (Negative) Urine Nitrite (Negative) Urine Bilirubin (Negative) Urine Urobilinogen (Negative) Ur Leukocyte Esterase (Negative) Urine WBC (Auto) (0-5) /hpf Urine RBC (Auto) (0-4) /hpf U Hyaline Cast (Auto) (0-5) /lpf U Epithel Cells (Auto) (0-5) /lpf Urine Bacteria (Auto) (Negative) Lyme Disease IgG Ab Positive A (Negative) Lyme Disease IgM Ab Negative (Negative) Blood Type Antibody Screen 10/10/18 Range/Units 13:35 WBC (4.8-10.8) K/uL RBC (4.7-6.1) M/uL Hgb (14.0-18.0) g/dL POC Hgb (14.0-18.0) g/dl Hct (42-52) % POC Hct (42-52) % MCV (80-100) fL MCH (25-34) pg MCHC (32-36) g/dL RDW Std Deviation (36.4-46.3) fL RDW Coeff of Shabnam (11.5-14.5) % Plt Count (130-400) K/uL Immature Gran % (Auto) % Neut % (Auto) % Lymph % (Auto) % Callahan % (Auto) % Eos % (Auto) % Baso % (Auto) % Immature Gran # (Auto) (0.00-0.02) K/uL Neut # (Auto) (1.4-6.5) K/uL Lymph # (Auto) (1.2-3.4) K/uL Callahan # (Auto) (0.11-0.59) K/uL Eos # (Auto) (0-0.5) K/uL Baso # (Auto) (0-0.2) K/uL Platelet Estimate (Normal) RBC Morphology PT (9.0-12.0) Seconds INR (0.9-1.1) APTT (21.0-31.0) Seconds PTT Ratio POC Sodium (135-144) mEq/L Sodium (136-145) mmol/L POC Potassium (3.3-5.0) mEq/L Potassium (3.5-5.1) mmol/L POC Chloride (101-112) mEq/L Chloride (98-107) mmol/L Carbon Dioxide (21-32) mmol/L POC Total CO2 (24-31) mEq/l Anion Gap (3-11) POC Anion Gap (16-25) mmol/L POC BUN (7-18) mg/dl BUN (7-18) mg/dl Creatinine (0.6-1.4) mg/dl POC Creatinine (0.6-1.3) mg/dl Est Cr Clr Drug Dosing Est GFR ( Amer) Est GFR (Non-Af Amer) BUN/Creatinine Ratio (10-20) Glucose (70-99) mg/dl POC Glucose (other) (70-99) mg/dl Calcium (8.5-10.1) mg/dl POC Ioniz Calcium Steve (1.12-1.32) mmol/l Magnesium (1.8-2.4) mg/dl Total Bilirubin (0.2-1) mg/dl AST (15-37) U/L ALT (12-78) U/L Alkaline Phosphatase (45-117) U/L Troponin I (0-0.045) ng/ml Total Protein (6.4-8.2) gm/dl Albumin (3.4-5.0) gm/dl Globulin (2.5-4.0) gm/dl Albumin/Globulin Ratio (0.9-2) TSH (0.300-4.500) uIu/ml Free T4 (0.8-1.6) ng/dl Urine Color Yellow Urine Appearance Cloudy A (Clear) Urine pH 5.0 (4.5-7.5) Ur Specific [place] 1.015 (1.000-1.030) Urine Protein Trace H (Negative) Urine Glucose (UA) Negative (Negative) Urine Ketones Negative (Negative) Urine Blood Trace H (Negative) Urine Nitrite Positive A (Negative) Urine Bilirubin Negative (Negative) Urine Urobilinogen Negative (Negative) Ur Leukocyte Esterase 3+ H (Negative) Urine WBC (Auto) >30 H (0-5) /hpf Urine RBC (Auto) 0-4 (0-4) /hpf U Hyaline Cast (Auto) 1-5 (0-5) /lpf U Epithel Cells (Auto) 10-20 H (0-5) /lpf Urine Bacteria (Auto) 4+ H (Negative) Lyme Disease IgG Ab (Negative) Lyme Disease IgM Ab (Negative) Blood Type Antibody Screen Imaging Data Radiologist's Impression: Radiology results as stated below per my review and the radiologist's interpretation: XR chest 1V portable CLINICAL HISTORY: weakness condition COMPARISON STUDY: 08/25/2018 FINDINGS: Mild stable cardiomegaly. Implantable cardiac pacemaker/fibrillator. Chronic right infrahilar atelectatic change. Lungs are clear. IMPRESSION: No acute processes. Chronic and postoperative change. The above report was generated using voice recognition software. It may contain grammatical, syntax or spelling errors. Electronically signed by: Deni Harrison M.D. 10/10/2018 1:[address] head/brain wo con CT DOSE: 691.05 mGy.cm HISTORY: Trauma weakness, fall, coumadin TECHNIQUE: Multiaxial CT images of the head were performed without the use of intravenous contrast. A dose lowering technique was utilized adhering to the principles of ALARA. Comparison: None. Findings: The paranasal sinuses and mastoid air cells are clear. The calvarium and skull base are intact. The ventricles and sulci are within normal limits. There is no mass, hematoma, midline shift, or acute infarct. 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 Moderate chronic small vessel change the periventricular and deep white matter regions. No evidence for acute intracranial hemorrhage. Impression: No acute intracranial abnormality. 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 The above report was generated using voice recognition software. It may contain grammatical, syntax or spelling errors. Electronically signed by: Deni Harrison M.D. 10/10/2018 1:19 PM ECG Data Attestation: I personally reviewed and interpreted this ECG as follows: Indication: weakness Rate (beats per minute): 70 Findings: + other ( QTC of 529), + PVC and + paced rhythm (ventricular) Blood Pressure Blood Pressure Findings: Normal blood pressure Blood Pressure Disposition: did not require urgent referral MDM Narrative This patient was evaluated and appeared to be in no significant distress. IV access was obtained and laboratory work was drawn. Patient was placed on the insecticide mixer and found to be in a paced rhythm. IV fluids were initiated. Laboratory work reveals anemia slightly worsened from previous. Recent CT imaging of the abdomen pelvis was performed there is no significant mass identified, just body wall anasarca. Patient's INR is noted to be 1.8. Patient's blood pressure is noted to be stable. UA was obtained and is indicitive of infection, but is very similar to previous. This will be sent for culture. Patient has been consented for blood transfusion. We will defer to the hospitalist for the actual transfusion. Patient and were made aware of the plan and agree. They will be evaluated by the hospitalist for further management. Impression & Plan Generalized weakness, Falls, Anemia Discharge Plan Visit Data *Final* Discharge Date/Time: 10/10/18 16:21 Chief Complaint: Fall Stated Complaint: OPEN SORE ON BUTT ED Provider: Rekha Paris Discharge Problem: Generalized weakness, Falls, Anemia Patient Disposition: Admitted As Inpatient Discharge Instructions Interventions: ED Discharge Assessment Last Done: 10/10/18 16:21 Discharge Problem: Falls Qualifiers: Encounter type: initial encounter Qualified Code(s): W19.XXXA - Unspecified fall, initial encounter Anemia Qualifiers: Anemia type: unspecified type Qualified Code(s): D64.9 - Anemia, unspecified The scribe's documentation has been prepared under my direction and personally reviewed by me in its entirety. I confirm that the note above accurately reflects all work, treatment, procedures, and medical decision making performed by me.
--- NOTE | 2018-10-10 15:45 | History & Physical Report ---
Date of Service October 10, 2018 Assessment & Plan (1) Anemia: Hb on 08/25/18 was 9.1, now at 8.6 on admission 05/2018 was noted to be 11 No hx of c-scope Hemoccult pending Repeat H/H tonight Will hold coumadin tonight and may be restarted if Hb is stable and hemoccult neg Will allow PO intake given no GI sx (2) Weight loss: Continue remeron No hx of c-scope Nonsmoker Monitor (3) Ulceration: L buttock WCC pending (4) UTI (urinary tract infection): Prior cx from 12/2017 was R to bactrim Cx pending Start on ceftriaxone and monitor (5) Generalized weakness: Uncertain etiology Possibly related to UTI vs weight loss vs anemia or combination of these issues PT/OT pending See below for further plans (6) Falls: Related to weakness most likely PT/OT pending (7) Permanent atrial fibrillation: Holding coumadin tonight as above INR 1.8 t/c restarting if anemia is stable and heme neg (8) Biventricular ICD (implantable cardioverter-defibrillator) in place: Noted (9) H/O: stroke: L sided weakness residual CVA was 12 years ago (10) HTN (hypertension): Home meds are being held due to recent hypoTN, likely related to weight loss Monitor (11) Obstructive sleep apnea: CPAP as at home (12) CHF (congestive heart failure), NYHA class II: lasix as at home (13) CKD (chronic kidney disease): Baseline cr is 1.5-1.9, 1.7 on admission Monitor (14) Hypokalemia: continue home meds (15) BPH (benign prostatic hyperplasia): continue home meds (16) DVT prophylaxis: SCDs given above History of Present Illness Primary Care Provider: Aj Uribe MD 83 y/o M c/o weight loss and recent falls. states that pt has lost about 50lbs over the last 5 months. Pt states he has no appetite. He might eat a few bites at a meal, but then doesn't want any further. No abd pain, n/v/c/d. No blood in his stools. He and do not think that pt has ever had a c-scope. There is no particular reason why he did not have testing. He has never had weight loss like this in the past. There have been no purposefull dietary modifications. Pt has seen PCP for this issue. Labs and a CTAP were done at that time. He was started on remeron about 2 weeks ago. There was initially an increase in appetite, but it did not last. Pt fell about 2 weeks ago. He cannot tell me details about this fall other than he believes that he tripped on something in the home and fell onto his R side. There was no LOC and he did not hit his head. states that he developed a "blood blister" on his L buttock after this and today she noted that it had turned black. They called the PCP's office and were directed to the ED for evaluation. Pt denies fever, SOB, chest pain, LE pain or swelling. Pt states he has no specific complaints at this time. No new pain. Denies any unusual bleeding or bruising. Pt states he follows with urology. He has recurrent UTI issues. He was on abx for a UTI about 3 months ago. These results are not in our system. Pt was on coumadin 4mg QD until recently when he had an INR >6. This was changed to 3mg 3x/week with 4mg other days. It is believed that this change was related to his decreased weight and PO intake. He also has had his BP meds stopped due to hypoTN over the last 2 weeks. Allergies Allergy/AdvReac Type Severity Reaction Status Date / Time No Known Drug Allergies Allergy Verified 10/10/18 13:48 Home Medications Home Medications Medication Instructions Recorded Confirmed Type donepezil 5 mg tablet 5 mg PO QPM #90 tab 09/12/18 10/10/18 History dutasteride 0.5 mg capsule 0.5 mg PO QAM #90 cap 09/12/18 10/10/18 History furosemide 40 mg tablet 40 mg PO QAM #90 tab 09/12/18 10/10/18 History potassium chloride ER 10 mEq 10 meq PO QAM #90 tab 09/12/18 10/10/18 History tablet,extended release tamsulosin 0.4 mg capsule 0.4 mg PO HS #90 cap 09/12/18 10/10/18 History allopurinol 300 mg tablet 300 mg PO QAM #90 tab 09/14/18 10/10/18 History azelastine 137 mcg (0.1 %) nasal 2 sprays INTRANASAL DAILY PRN ml 09/14/18 10/10/18 History spray aerosol carvedilol 25 mg tablet 25 mg PO BID #180 tab 09/14/18 10/10/18 History ergocalciferol (vitamin D2) 50,000 50,000 units PO MONTHLY #21 cap 09/14/18 10/10/18 History unit capsule warfarin 4 mg tablet 4 mg PO 4XWK tab 10/06/18 10/10/18 History amlodipine-benazepril 1 cap PO QAM 10/10/18 10/10/18 History hydralazine 50 mg PO TID 10/10/18 10/10/18 History mirtazapine [Remeron] 7.5 mg PO HS 10/10/18 10/10/18 History warfarin 2 mg PO 3XWK 10/10/18 10/10/18 History Past Med/Surg History Medical History Permanent atrial fibrillation (Chronic) 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) Chronic anticoagulation (Chronic) H/O: stroke (Chronic) HTN (hypertension) (Chronic) Obstructive sleep apnea CHF (congestive heart failure), NYHA class II (Chronic 07/25/13) LBBB (left bundle branch block) (Chronic 07/25/13) 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) Social History Preferred Language: Monegasque marital status: Current Living Situation: Spouse Feels Safe at Home: Yes Smoking Status: Never smoker Hx Alcohol Use: Yes (beer 1-2/week) Hx Substance Use: No Review of Systems Review of Systems: Pertinent positives and negatives reviewed in HPI--all others negative Physical Exam Constitutional: WD/WN, vitals as above Eyes: normal visual andre by confrontation and + anicteric sclerae Neck: normal visual inspection and trachea midline Respiratory: normal respiratory effort, lungs clear to auscultation Cardiovascular: Rate/Rhythm: regular rate and regular rhythm Gastrointestinal (Abdomen): Inspection/Auscultation: abdomen not distended Percussion/Palpation: abdomen soft; abdomen nontender Musculoskeletal: Head/Neck/Chest: normocephalic and head atraumatic negative for edema, peripheral pulses intact Skin: no rashes, warm and dry Neurologic: awake; not confused Speech / Cognition: normal speech Psychiatric: A+Ox3, euthymic affect Results & Data Vital Signs (Past 12 Hours) Vital Signs Temp Pulse Pulse Resp BP BP Pulse Ox 10/10/18 15:00 78 16 132/87 100 10/10/18 13:53 37.1 C 80 18 123/63 100 10/10/18 12:17 75 18 96 10/10/18 11:57 36.8 C 102 H 20 112/72 99 Diagnostic Findings CXR: neg for acute CT head: neg for acute CTAP: total body anasarca ECG Additional Comments: Ventricular paced Code Status & VTE Plan Code Status Full code VTE Prophylaxis Plan VTE Prophylaxis will be ordered: Yes PG Care Time/CCT Total # of Minutes Spent Total Time Spent with Patient: Total time spent is greater than 50% in coordination of care (as documented) at patient's floor/unit and/or counseling patient: (1) Anemia Anemia type: unspecified type Qualified Code(s): D64.9 - Anemia, unspecified (2) Falls Encounter type: initial encounter Qualified Code(s): W19.XXXA - Unspecified fall, initial encounter
[2018-10-10] MEDS ORDERED: ONDANSETRON INJ 2 MG/ML 2 ML VIAL IV PRN (17:19)
[2018-10-10] MEDS ORDERED: MAGNESIUM HYDROXIDE SUSP 30 ML UDC PO PRN (17:19)
[2018-10-10] MEDS ORDERED: ACETAMINOPHEN 325 MG TAB PO PRN (17:19)
[2018-10-10] MEDS ORDERED: ERGOCALCIFEROL 50,000 UNITS CAP PO SCH (18:00)
[2018-10-10 18:47] LABS: Lyme Ab IgM w/WB Rflx Negative (Negative)
[2018-10-10 18:50] LABS: Lyme Ab IgG w/WB Rflx Positive (Negative)
[2018-10-10] MEDS: cefTRIAXone SODIUM 2,000 MG in DEXTROSE 5% 50 ML IV SCH (18:58)
[2018-10-10 20:11] LABS: Hematocrit (blood only) 29.6 % (42-52); Hemoglobin 9.3 g/dL (14.0-18.0)
[2018-10-10] MEDS: MIRTAZAPINE TAB 15 MG TAB PO SCH (22:07)
[2018-10-10] MEDS: TAMSULOSIN HCL 0.4 MG CAP PO SCH (22:07)
[2018-10-10] MEDS: DONEPEZIL HCL 5 MG TAB PO SCH (22:07)
[2018-10-11 07:04] LABS: Mean Corpuscular Hgb Conc 31.8 g/dL (32-36); Nucleated RBC # (auto) 0.02 K/uL (0-0); Nucleated RBC % (auto) 0.3 %
[2018-10-11 07:14] LABS: Hematocrit (blood only) 29.6 % (42-52); Hemoglobin 9.4 g/dL (14.0-18.0); INR 1.9 (0.9-1.1); Mean Corpuscular Volume 87.8 fL (80-100); Prothrombin Time 18.3 Seconds (9.0-12.0); RDW Standard Deviation 51.3 fL (36.4-46.3); Red Blood Count 3.37 M/uL (4.7-6.1); White Blood Count 4.78 K/uL (4.8-10.8)
[2018-10-11 07:36] LABS: Platelet Count 133 K/uL (130-400)
[2018-10-11 07:37] LABS: Basophils # (auto) 0.02 K/uL (0-0.2); Basophils % (auto) 0.4 %; Eosinophils # (auto) 0.74 K/uL (0-0.5); Eosinophils % (auto) 15.5 %; Lymphocytes # (auto) 1.12 K/uL (1.2-3.4); Lymphocytes % (auto) 23.4 %; Monocytes # (auto) 0.39 K/uL (0.11-0.59); Monocytes % (auto) 8.2 %; Neutrophils # (auto) 2.51 K/uL (1.4-6.5); Neutrophils % (auto) 52.5 %; Platelet Estimate Decreased (Normal)
[2018-10-11 07:40] LABS: BUN Creatinine Ratio 14.5 (10-20); Calcium 8.5 mg/dl (8.5-10.1); Creatinine Clr Calc Pharmacy 41.4 ml/min; Est GFR (African American) 50.3; Est GFR (Non-African American) 43.4; Potassium 3.6 mmol/L (3.5-5.1)
[2018-10-11] MEDS: POTASSIUM CHLORIDE 10 MEQ TABCR PO SCH (09:02)
[2018-10-11] MEDS: ALLOPURINOL 300 MG TAB PO SCH (09:02)
[2018-10-11] MEDS: FUROSEMIDE 40 MG TAB PO SCH (09:02)
[2018-10-11] MEDS: LEVOTHYROXINE SODIUM 25 MCG TABLET PO SCH (10:09)
--- NOTE | 2018-10-11 17:24 | Hospitalist Progress Note ---
Date of Service October 11, 2018 Assessment & Plan (1) Falls: Related to weakness from malnutrition, weight loss, dementia PT/OT recommending SNF, in agreement Also with TSH elevated, normal FT4 but could be related--> start LT4 25 (2) Generalized weakness: As above, related to weight loss, dementia, malnutrition, and possibly UTI, hypothryoidism PT/OT recommending SNF as above (3) Weight loss: Secondary to dementia most likely, reports he refuses to eat most of the time - but was recommended by PCP to have colonoscopy -Continue remeron (4) Anemia: Hb fairly stable at 9.4 05/2018 was noted to be 11 No hx of c-scope Hemoccult pending -check Fe studies, B12, folate TSH is elevated--> starting LT4 -likely anemia of chronic renal disease (5) Ulceration: L buttock Traumatic Ulcer -wound care consult appreciated-awaiting wound MD to see about possible debridement (6) UTI (urinary tract infection): UA abnormal, has long h/o recurrent UTIs, BPH Sees Urology Dr. Madera and question of compliance with BPH meds, was recently started on dutasteride -continue Flomax as well Prior cx from 12/2017 was R to bactrim Cx pending here continue ceftriaxone and monitor (7) Permanent atrial fibrillation: Coumadin was held for anemia but no active bleeding at this time, hgb stable INR 1.8 -restart coumadin tomorrow (8) Biventricular ICD (implantable cardioverter-defibrillator) in place: placed for syncope in setting of severe systolic CHF with EF now improved as of 2017 to 40-45% but previously much lower Follows with Dr. Wade (9) H/O: stroke: L sided weakness residual CVA was 12 years ago -is on coumadin for Afib (10) HTN (hypertension): Home meds are being held due to recent hypoTN, likely related to weight loss Monitor but given systolic CHF, will restart Coreg and ACEi, amlodipine -hold home hydralazine (11) Obstructive sleep apnea: -continue CPAP as at home (12) CHF (congestive heart failure), NYHA class II: Chronic systolic (congestive) heart failure With EF as low as <30% requiring ICD placement in approx 2013, now EF improved in 2017 to 40-45% with medical management -continue lasix -add back Coreg, lotrel -change to low Na+ diet -follow daily weights (13) CKD (chronic kidney disease): Chronic kidney disease, stage 3 (moderate) Baseline cr is 1.5-1.9, 1.7 on admission, now back to baseline Monitor BMP (14) Hypokalemia: continue home meds of KCl (15) BPH (benign prostatic hyperplasia): continue home meds but dutasteride not available here (16) Moderate malnutrition: Family reporting a nearly 40 lbs weight loss over the past half-year, BMI 19.4 -dietary consult appreciated -continue daily weights, Boost, Remeron (17) Dementia: -progressive, not eating much, weight loss, multiple falls -continue donepezil follows with Dr. Plata of [facility] -supportive care (18) DVT prophylaxis: SCDs, restart coumadin Dispo-stay overnight, await urine culture results Plan for SNF placement, CM involoved Subjective Pt feeling better. Still weak and unsteady on feet. Has a sore wound on his buttock his reports since he fell a few weeks ago. She was not aware of it until she saw it the day of admission. He denies CP or SOB. Keeps asking when he is leaving. says she cannot handle him at home and he needs SNF placement. Tele with paced rhythm Review of Systems Review of Systems: All systems reviewed & are unremarkable except as noted in HPI & below Physical Exam Constitutional: + thin; no acute distress Eyes: PERRL, conjunctivae normal, anicteric sclerae ENMT: external ear and nose normal, oropharynx normal Neck: trachea midline, no thyromegaly Respiratory: normal respiratory effort, lungs clear to auscultation Cardiovascular: Rate/Rhythm: regular rate and regular rhythm Extremities: + edema (2+ poitting edema legs and ankles bilat) Gastrointestinal (Abdomen): normal bowel sounds, soft, nontender, no hepatosplenomegaly Musculoskeletal: Extremities: extremities normal to inspection; no cyanosis and no clubbing Skin: + wound (left buttock with 2 x 7cm superficial wound w/ eschar centrally,mild edema) Neurologic: moves all extremities (but generally weak throughout ) and awake Psychiatric: Orientation: alert, oriented to person and cooperative; + not oriented to place and + not oriented to time Apperance: appropriately dressed Results & Data Vital Signs (Past 12 Hours) Vital Signs Temp Pulse Pulse Resp BP BP Pulse Ox 10/11/18 11:55 75 19 99/63 L 99 10/11/18 08:57 50 L 128/52 L 10/11/18 08:00 87 10/11/18 07:25 36.7 C 55 L 18 129/74 93 Laboratory Results 10/11/18 10/11/18 Range/Units 06:45 06:45 Plt Count 133 (130-400) K/uL Immature Gran % (Auto) 0.0 % Neut % (Auto) 52.5 % Lymph % (Auto) 23.4 % [place] % (Auto) 8.2 % Eos % (Auto) 15.5 % Baso % (Auto) 0.4 % Immature Gran # (Auto) 0.00 (0.00-0.02) K/uL Neut # (Auto) 2.51 (1.4-6.5) K/uL Lymph # (Auto) 1.12 L (1.2-3.4) K/uL [place] # (Auto) 0.39 (0.11-0.59) K/uL Eos # (Auto) 0.74 H (0-0.5) K/uL Baso # (Auto) 0.02 (0-0.2) K/uL Platelet Estimate Decreased L (Normal) Sodium 143 (136-145) mmol/L Potassium 3.6 (3.5-5.1) mmol/L Chloride 110 H (98-107) mmol/L Carbon Dioxide 27 (21-32) mmol/L Anion Gap 6.0 (3-11) BUN 21 H (7-18) mg/dl Creatinine 1.48 H (0.6-1.4) mg/dl Est Cr Clr Drug Dosing 41.4 ml/min Est GFR ( Amer) 50.3 Est GFR (Non-Af Amer) 43.4 BUN/Creatinine Ratio 14.5 (10-20) Glucose 88 (70-99) mg/dl Calcium 8.5 (8.5-10.1) mg/dl PG Care Time/CCT Total # of Minutes Spent Total Time Spent with Patient: Total time spent is greater than 50% in coordination of care (as documented) at patient's floor/unit and/or counseling patient: (1) Anemia Anemia type: unspecified type Qualified Code(s): D64.9 - Anemia, unspecified (2) CKD (chronic kidney disease) Chronic kidney disease stage: stage 3 (moderate) Qualified Code(s): N18.3 - Chronic kidney disease, stage 3 (moderate) (3) Falls Encounter type: initial encounter Qualified Code(s): W19.XXXA - Unspecified fall, initial encounter
[2018-10-11] MEDS: cefTRIAXone SODIUM 2,000 MG in DEXTROSE 5% 50 ML IV SCH (18:02)
[2018-10-11] MEDS ORDERED: AZELASTINE 0.1% NAE PRN (19:32)
[2018-10-11] MEDS: MIRTAZAPINE TAB 15 MG TAB PO SCH (20:59)
[2018-10-11] MEDS: DONEPEZIL HCL 5 MG TAB PO SCH (20:59)
[2018-10-11] MEDS: TAMSULOSIN HCL 0.4 MG CAP PO SCH (20:59)
[2018-10-12] MEDS: LEVOTHYROXINE SODIUM 25 MCG TABLET PO SCH (06:05)
[2018-10-12 07:48] LABS: Mean Corpuscular Hgb Conc 31.7 g/dL (32-36)
[2018-10-12 08:00] LABS: Hematocrit (blood only) 32.8 % (42-52); Hemoglobin 10.4 g/dL (14.0-18.0); Mean Corpuscular Volume 88.4 fL (80-100); RDW Coefficient of Variation 15.9 % (11.5-14.5); RDW Standard Deviation 51.5 fL (36.4-46.3); Red Blood Count 3.71 M/uL (4.7-6.1); White Blood Count 5.59 K/uL (4.8-10.8)
[2018-10-12 08:04] LABS: INR 1.7 (0.9-1.1); Prothrombin Time 16.7 Seconds (9.0-12.0)
[2018-10-12 08:14] LABS: BUN Creatinine Ratio 14.9 (10-20); Calcium 8.7 mg/dl (8.5-10.1); Creatinine Clr Calc Pharmacy 38.7 ml/min; Est GFR (African American) 46.5; Est GFR (Non-African American) 40.1; Potassium 3.6 mmol/L (3.5-5.1)
[2018-10-12 08:19] LABS: Ferritin 369.3 ng/ml (8-388)
[2018-10-12 08:31] LABS: Basophils # (auto) 0.02 K/uL (0-0.2); Basophils % (auto) 0.4 %; Eosinophils # (auto) 0.82 K/uL (0-0.5); Eosinophils % (auto) 14.7 %; Immature Granulocytes # (auto) 0.01 K/uL (0.00-0.02); Immature Granulocytes % (auto) 0.2 %; Lymphocytes # (auto) 1.29 K/uL (1.2-3.4); Lymphocytes % (auto) 23.1 %; Monocytes # (auto) 0.39 K/uL (0.11-0.59); Neutrophils # (auto) 3.06 K/uL (1.4-6.5); Neutrophils % (auto) 54.6 %; Platelet Count 125 K/uL (130-400); Platelet Estimate Decreased (Normal)
[2018-10-12] MEDS: CARVEDILOL 25 MG TAB PO SCH ×2 (08:41→21:04)
[2018-10-12] MEDS: AMLODIPINE BESYLATE 5 MG TAB PO SCH (08:41)
[2018-10-12] MEDS: POTASSIUM CHLORIDE 10 MEQ TABCR PO SCH (08:41)
[2018-10-12] MEDS: ENALAPRIL MALEATE 10 MG TAB PO SCH (08:41)
[2018-10-12] MEDS: FUROSEMIDE 40 MG TAB PO SCH (08:42)
[2018-10-12] MEDS: ALLOPURINOL 300 MG TAB PO SCH (08:42)
[2018-10-12] MEDS ORDERED: NON-FORMULARY MEDICATION (Amlodipine-Benazepril 1 CAP) PO SCH (09:00)
[2018-10-12] MEDS ORDERED: HydrALAZINE TAB 50 MG TAB PO SCH (09:00)
[2018-10-12 09:48] LABS: Folate (Folic Acid) 5.53 ng/ml (>5.38)
[2018-10-12] MEDS: FOLIC ACID 1 MG TAB PO SCH (11:39)
[2018-10-12] MEDS: WARFARIN SOD 4 MG TAB PO SCH (15:51)
--- NOTE | 2018-10-12 17:33 | Hospitalist Progress Note ---
Date of Service October 12, 2018 Assessment & Plan (1) Falls: Related to weakness from malnutrition, weight loss, dementia, UTI PT/OT recommending SNF, in agreement Also with TSH elevated, normal FT4 but could be related--> started LT4 25 micrograms daily -Repeat TSH in 4 to 6 weeks -Given moderate malnutrition, will also start thiamine and multivitamin B12 level is normal (2) Generalized weakness: As above, related to weight loss, dementia, malnutrition, and UTI, hypothryoidism PT/OT recommending SNF as above (3) Weight loss: Secondary to dementia most likely, reports he refuses to eat most of the time - but was recommended by PCP to have colonoscopy -Continue remeron (4) Anemia: Hb improved today to 10.4 from 9.4 05/2018 was noted to be 11 No hx of c-scope Hemoccult pending this admission, but was negative in 01/2018 Fe studies consistent with anemia of chronic disease B12 normal, however folate is borderline low at 5 TSH is elevated--> starting LT4 -likely anemia of chronic renal disease and mild folate deficiency -Start folic acid 1 mg p.o. once daily -No role for erythropoietin or iron supplementation at this point (5) Ulceration: L buttock Traumatic Ulcer -wound care consult appreciated-awaiting wound MD to see about possible debridement (6) UTI (urinary tract infection): UA abnormal, has long h/o recurrent UTIs, BPH Sees Urology Dr. Madera and question of compliance with BPH meds, was recently started on dutasteride -continue Flomax as well Prior cx from 12/2017 was E. coli resistant to bactrim Urine culture here is again the same exact organism as previous with E. coli only resistant to Bactrim Received 2 doses of IV ceftriaxone and will now convert to p.o. 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 given that organism was never eradicated from 10 months ago -Follow-up with urology as an outpatient (7) Permanent atrial fibrillation: Coumadin was held for anemia but no active bleeding at this time, hgb stable INR 1.7 -restart coumadin at slightly higher dose as he has missed several doses and is subtherapeutic -Given history of stroke and possibility of DVT in the left lower extremity, will begin bridging with full dose anticoagulation Lovenox 1 mg/KG twice daily -Follow INR (8) Biventricular ICD (implantable cardioverter-defibrillator) in place: placed for syncope in setting of severe systolic CHF with EF now improved as of 2017 to 40-45% but previously much lower Follows with Dr. Wade -Is pacing appropriately on telemetry (9) H/O: stroke: L sided weakness residual CVA was 12 years ago -is on coumadin for Afib -Bridging with Lovenox as above while INR is subtherapeutic (10) HTN (hypertension): Home meds were initially being held due to recent hypoTN, likely related to weight loss Monitor but given systolic CHF, have since restarted Coreg and ACEi, amlodipine -Continue to hold home hydralazine (11) Obstructive sleep apnea: -continue CPAP nightly (12) CHF (congestive heart failure), NYHA class II: Chronic systolic (congestive) heart failure With EF as low as <30% requiring ICD placement in approx 2013, now EF improved in 2017 to 40-45% with medical management With lower extremity swelling in the last week, but overall body weight is significantly decreased from previous, could be from hypoalbuminemia -continue lasix -Continue Coreg, lotrel -Continue low Na+ diet -follow daily weights (13) CKD (chronic kidney disease): Chronic kidney disease, stage 3 (moderate) Baseline cr is 1.5-1.9, 1.7 on admission, now back to baseline at 1.5 Monitor BMP -Avoid nephrotoxins -Renally dose medications when appropriate (14) Hypokalemia: continue home med of KCl 10 mEq daily (15) BPH (benign prostatic hyperplasia): continue home meds of Flomax and dutasteride -Follows with urology and has been suggested to get TURP in the past (16) Moderate malnutrition: Family reporting a nearly 40 lbs weight loss over the past half-year, BMI 19.4 -dietary consult appreciated -continue daily weights, Boost, Remeron -Start thiamine, multivitamin, folic acid (17) Dementia: -progressive, not eating much, weight loss, multiple falls -continue donepezil follows with Dr. Plata of Neuro -supportive care -Check vitamin B1 level-this will take a week to come back and should be followed up on after discharge (18) DVT prophylaxis: SCDs, Coumadin, Lovenox bridging Dispo-much improved medically, stable for discharge when long term placement can be arranged His case was discussed with his at the bedside Subjective Patient states he feels much better today. His even notes that he looks the best she seen him in weeks. He ate almost his entire dinner tray which is the most food he has eaten in a long time. He denies any complaints and asked when he is being discharged home. His reminds him that he will not be returning home, rather is going to a long term. also notes that his legs have only been swollen for the last week and this is new for him. The left leg seems a lot more swollen than the right leg. He denies any calf pain. Review of Systems Review of Systems: All systems reviewed & are unremarkable except as noted in HPI & below Physical Exam Constitutional: + thin; no acute distress Eyes: PERRL, conjunctivae normal, anicteric sclerae ENMT: external ear and nose normal, oropharynx normal Neck: trachea midline, no thyromegaly Respiratory: normal respiratory effort, lungs clear to auscultation Cardiovascular: Rate/Rhythm: regular rate and regular rhythm Extremities: + edema (2+ pitting edema legs and ankles bilat with asymmetric left greater than right, positive tightness of left calf); no calf tenderness Gastrointestinal (Abdomen): normal bowel sounds, soft, nontender, no hepatosplenomegaly Musculoskeletal: Extremities: extremities normal to inspection; no cyanosis and no clubbing Neurologic: moves all extremities (but generally weak throughout ) and awake Psychiatric: Orientation: alert, oriented to person and cooperative; + not oriented to place and + not oriented to time Apperance: appropriately dressed Results & Data Vital Signs (Past 12 Hours) Vital Signs Temp Pulse Pulse Resp BP BP Pulse Ox 10/12/18 15:19 36.5 C 80 18 109/73 99 10/12/18 11:59 36.3 C L 63 18 98/62 L 99 10/12/18 08:39 64 150/80 H 10/12/18 07:46 36.7 C 74 18 160/88 H 94 10/12/18 06:01 36.6 C 76 20 154/74 H 95 Laboratory Results 10/12/18 10/12/18 10/12/18 Range/Units 08:07 07:30 07:30 WBC (4.8-10.8) K/uL RBC (4.7-6.1) M/uL Hgb (14.0-18.0) g/dL Hct (42-52) % MCV (80-100) fL MCH (25-34) pg MCHC (32-36) g/dL RDW Std Deviation (36.4-46.3) fL RDW Coeff of Shabnam (11.5-14.5) % Plt Count (130-400) K/uL Immature Gran % (Auto) % Neut % (Auto) % Lymph % (Auto) % [place] % (Auto) % Eos % (Auto) % Baso % (Auto) % Immature Gran # (Auto) (0.00-0.02) K/uL Neut # (Auto) (1.4-6.5) K/uL Lymph # (Auto) (1.2-3.4) K/uL [place] # (Auto) (0.11-0.59) K/uL Eos # (Auto) (0-0.5) K/uL Baso # (Auto) (0-0.2) K/uL Platelet Estimate (Normal) PT 16.7 H (9.0-12.0) Seconds INR 1.7 H (0.9-1.1) Sodium 146 H (136-145) mmol/L Potassium 3.6 (3.5-5.1) mmol/L Chloride 112 H (98-107) mmol/L Carbon Dioxide 29 (21-32) mmol/L Anion Gap 5.0 (3-11) BUN 24 H (7-18) mg/dl Creatinine 1.58 H (0.6-1.4) mg/dl Est Cr Clr Drug Dosing 38.7 ml/min Est GFR ( Amer) 46.5 Est GFR (Non-Af Amer) 40.1 BUN/Creatinine Ratio 14.9 (10-20) Glucose 109 H (70-99) mg/dl Calcium 8.7 (8.5-10.1) mg/dl Iron 24 L (35-175) mcg/dl TIBC 191 L (250-450) mcg/dl Transferrin 160 L (200-360) mg/dl Transferrin % Sat 11 L (20-50) % Ferritin 369.3 (8-388) ng/ml Vitamin B12 484 (211-911) pg/ml Folate 5.53 (>5.38) ng/ml 10/12/18 Range/Units 07:30 WBC 5.59 (4.8-10.8) K/uL RBC 3.71 L (4.7-6.1) M/uL Hgb 10.4 L (14.0-18.0) g/dL Hct 32.8 L (42-52) % MCV 88.4 (80-100) fL MCH 28.0 (25-34) pg MCHC 31.7 L (32-36) g/dL RDW Std Deviation 51.5 H (36.4-46.3) fL RDW Coeff of Shabnam 15.9 H (11.5-14.5) % Plt Count 125 L (130-400) K/uL Immature Gran % (Auto) 0.2 % Neut % (Auto) 54.6 % Lymph % (Auto) 23.1 % [place] % (Auto) 7.0 % Eos % (Auto) 14.7 % Baso % (Auto) 0.4 % Immature Gran # (Auto) 0.01 (0.00-0.02) K/uL Neut # (Auto) 3.06 (1.4-6.5) K/uL Lymph # (Auto) 1.29 (1.2-3.4) K/uL [place] # (Auto) 0.39 (0.11-0.59) K/uL Eos # (Auto) 0.82 H (0-0.5) K/uL Baso # (Auto) 0.02 (0-0.2) K/uL Platelet Estimate Decreased L (Normal) PT (9.0-12.0) Seconds INR (0.9-1.1) Sodium (136-145) mmol/L Potassium (3.5-5.1) mmol/L Chloride (98-107) mmol/L Carbon Dioxide (21-32) mmol/L Anion Gap (3-11) BUN (7-18) mg/dl Creatinine (0.6-1.4) mg/dl Est Cr Clr Drug Dosing ml/min Est GFR ( Amer) Est GFR (Non-Af Amer) BUN/Creatinine Ratio (10-20) Glucose (70-99) mg/dl Calcium (8.5-10.1) mg/dl Iron (35-175) mcg/dl TIBC (250-450) mcg/dl Transferrin (200-360) mg/dl Transferrin % Sat (20-50) % Ferritin (8-388) ng/ml Vitamin B12 (211-911) pg/ml Folate (>5.38) ng/ml Diagnostic Findings Doppler left lower extremity negative for DVT PG Care Time/CCT Total # of Minutes Spent Total Time Spent with Patient: Total time spent is greater than 50% in coordination of care (as documented) at patient's floor/unit and/or counseling patient: (1) Anemia Anemia type: unspecified type Qualified Code(s): D64.9 - Anemia, unspecified (2) CKD (chronic kidney disease) Chronic kidney disease stage: stage 3 (moderate) Qualified Code(s): N18.3 - Chronic kidney disease, stage 3 (moderate) (3) Falls Encounter type: initial encounter Qualified Code(s): W19.XXXA - Unspecified fall, initial encounter
[2018-10-12] MEDS: cefTRIAXone SODIUM 2,000 MG in DEXTROSE 5% 50 ML IV SCH (17:58)
--- NOTE | 2018-10-12 20:31 | Ultrasound Report ---
US venous doppler LE LT CLINICAL HISTORY: Left leg pain and swelling COMPARISON STUDY: No previous studies for comparison. FINDINGS: Real-time and color flow Doppler imaging were performed. Flow was seen within the femoral, popliteal and calf veins with no intraluminal thrombus demonstrated. The saphenous vein is patent. IMPRESSION: No evidence of left lower extremity DVT. Electronically signed by: Vinh Mccarty M.D. 10/12/2018 8:30 PM
[2018-10-12] MEDS: ENOXAPARIN 80 MG/0.8 ML SYR SQ SCH (21:03)
[2018-10-12] MEDS: TAMSULOSIN HCL 0.4 MG CAP PO SCH (21:04)
[2018-10-12] MEDS: MIRTAZAPINE TAB 15 MG TAB PO SCH (21:05)
[2018-10-12] MEDS: DONEPEZIL HCL 5 MG TAB PO SCH (21:06)
[2018-10-13 06:25] LABS: INR 1.7 (0.9-1.1)
[2018-10-13] MEDS: LEVOTHYROXINE SODIUM 25 MCG TABLET PO SCH (06:40)
[2018-10-13 07:43] LABS: BUN Creatinine Ratio 18.3 (10-20); Creatinine Clr Calc Pharmacy 37.5 ml/min; Est GFR (Non-African American) 36.2; Potassium 3.5 mmol/L (3.5-5.1)
[2018-10-13 07:44] LABS: Calcium 8.1 mg/dl (8.5-10.1)
[2018-10-13] MEDS: AMLODIPINE BESYLATE 5 MG TAB PO SCH (07:53)
[2018-10-13] MEDS: ENALAPRIL MALEATE 10 MG TAB PO SCH (07:53)
[2018-10-13] MEDS: FUROSEMIDE 40 MG TAB PO SCH (07:53)
[2018-10-13] MEDS: FOLIC ACID 1 MG TAB PO SCH (07:53)
[2018-10-13] MEDS: POTASSIUM CHLORIDE 10 MEQ TABCR PO SCH (07:54)
[2018-10-13] MEDS: ENOXAPARIN 80 MG/0.8 ML SYR SQ SCH ×2 (07:54→21:43)
[2018-10-13] MEDS: ALLOPURINOL 300 MG TAB PO SCH (07:54)
[2018-10-13] MEDS: DUTASTERIDE 0.5 MG CAPSULE PO SCH (07:55)
[2018-10-13] MEDS: CARVEDILOL 25 MG TAB PO SCH ×2 (07:55→21:40)
[2018-10-13] MEDS: CIPROFLOXACIN 500 MG TAB PO SCH ×2 (07:55→21:40)
[2018-10-13] MEDS: CEROVITE ADV FORMULA TAB PO SCH (09:06)
[2018-10-13] MEDS: THIAMINE HCL 100 MG TAB PO SCH (09:06)
[2018-10-13 09:24] LABS: Mean Corpuscular Hgb Conc 31.5 g/dL (32-36)
[2018-10-13 09:39] LABS: Hematocrit (blood only) 27.3 % (42-52); Hemoglobin 8.6 g/dL (14.0-18.0); Mean Corpuscular Volume 86.9 fL (80-100); RDW Coefficient of Variation 15.9 % (11.5-14.5); RDW Standard Deviation 50.9 fL (36.4-46.3); Red Blood Count 3.14 M/uL (4.7-6.1); White Blood Count 3.87 K/uL (4.8-10.8)
[2018-10-13 09:54] LABS: Basophils # (auto) 0.02 K/uL (0-0.2); Basophils % (auto) 0.5 %; Eosinophils # (auto) 0.72 K/uL (0-0.5); Eosinophils % (auto) 18.6 %; Giant Platelets 1+; Lymphocytes # (auto) 1.12 K/uL (1.2-3.4); Lymphocytes % (auto) 28.9 %; Monocytes # (auto) 0.28 K/uL (0.11-0.59); Monocytes % (auto) 7.2 %; Neutrophils # (auto) 1.73 K/uL (1.4-6.5); Neutrophils % (auto) 44.8 %; Platelet Count 127 K/uL (130-400); Platelet Estimate Decreased (Normal)
--- NOTE | 2018-10-13 15:04 | Hospitalist Progress Note ---
Date of Service October 13, 2018 Assessment & Plan (1) Falls: Related to weakness from malnutrition, weight loss, dementia, UTI PT/OT recommending SNF, in agreement Also with TSH elevated, normal FT4 but could be related--> started LT4 25 micrograms daily -Repeat TSH in 4 to 6 weeks -Given moderate malnutrition, also started thiamine and multivitamin B12 level is normal (2) Generalized weakness: As above, related to weight loss, dementia, malnutrition, and UTI, hypothryoidism PT/OT recommending SNF as above (3) Weight loss: Secondary to dementia most likely, reports he refuses to eat most of the time Appetite is greatly improved as per since being in the hospital - but was recommended by PCP to have colonoscopy -Continue remeron (4) Anemia: Hb with slight decrease today to 8.6, average seems to be around 9 here 05/2018 was noted to be 11 No hx of c-scope Hemoccult pending this admission, but was negative in 01/2018 Fe studies consistent with anemia of chronic disease B12 normal, however folate is borderline low at 5 TSH is elevated--> starting LT4 -likely anemia of chronic renal disease and mild folate deficiency -Started folic acid 1 mg p.o. once daily -No role for erythropoietin or iron supplementation at this point -follow CBC (5) Ulceration: L buttock Traumatic Ulcer -wound care consult appreciated-awaiting wound MD to see about possible debridement-likely after the holiday (6) UTI (urinary tract infection): UA abnormal, has long h/o recurrent UTIs, BPH Sees Urology Dr. Madera and question of compliance with BPH meds, was recently started on dutasteride -continue Flomax as well Prior cx from 12/2017 was E. coli resistant to bactrim Urine culture here is again the same exact organism as previous with E. coli only resistant to Bactrim Received 2 doses of IV ceftriaxone and will then converted to p.o. 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 given that organism was never eradicated from 10 months ago -Follow-up with urology as an outpatient (7) Permanent atrial fibrillation: Coumadin was held for anemia x 2 days upon admission but no active bleeding at this time, hgb fairly stable INR 1.7 still today -continue coumadin at slightly higher dose as he has missed several doses and is subtherapeutic -Given history of stroke, continue bridging with full dose anticoagulation Lovenox 1 mg/KG twice daily -Follow INR in the AM (8) Biventricular ICD (implantable cardioverter-defibrillator) in place: placed for syncope in setting of severe systolic CHF with EF now improved as of 2017 to 40-45% but previously much lower Follows with Dr. Wade -Is pacing appropriately on telemetry -can remove from tele (9) H/O: stroke: L sided weakness residual CVA was 12 years ago -is on coumadin for Afib -Bridging with Lovenox as above while INR is subtherapeutic (10) HTN (hypertension): Home meds were initially being held due to recent hypoTN, likely related to weight loss Monitor but given systolic CHF, have since restarted Coreg and ACEi, amlodipine -Continue to hold home hydralazine (11) Obstructive sleep apnea: -continue CPAP nightly (12) CHF (congestive heart failure), NYHA class II: Chronic systolic (congestive) heart failure With EF as low as <30% requiring ICD placement in approx 2013, now EF improved in 2017 to 40-45% with medical management With lower extremity swelling in the last week, but overall body weight is significantly decreased from previous, could be from hypoalbuminemia Edema improved today -continue lasix -Continue Coreg, lotrel -Continue low Na+ diet -follow daily weights (13) CKD (chronic kidney disease): Chronic kidney disease, stage 3 (moderate) Baseline cr is 1.5-1.9, 1.7 on admission, at baseline today 1.7 Monitor BMP -Avoid nephrotoxins -Renally dose medications when appropriate (14) Hypokalemia: continue home med of KCl 10 mEq daily (15) BPH (benign prostatic hyperplasia): continue home meds of Flomax and dutasteride -Follows with urology and has been suggested to get TURP in the past (16) Moderate malnutrition: Family reporting a nearly 40 lbs weight loss over the past half-year, BMI 19.4 -dietary consult appreciated -continue daily weights, Boost, Remeron -Started thiamine, multivitamin, folic acid (17) Dementia: -progressive, not eating much at home, weight loss, multiple falls -continue donepezil follows with Dr. Plata of Neuro -supportive care -Checked vitamin B1 level-this will take a week to come back and should be followed up on after discharge (18) Knee pain: bilateral knee stiffness, pain -start Voltaren gel (19) DVT prophylaxis: SCDs, Coumadin, Lovenox bridging Dispo-much improved medically, stable for discharge when shelter placement can be arranged His case was discussed with his at the bedside Subjective Pt reports feeling great. says he is having trouble keeping his knees straight and may be stiff in his knees. He is eating his meals, moving bowels, denies SOB or CP. Review of Systems Review of Systems: All systems reviewed & are unremarkable except as noted in HPI & below Physical Exam Constitutional: + thin; no acute distress Eyes: PERRL, conjunctivae normal, anicteric sclerae Neck: trachea midline, no thyromegaly Respiratory: normal respiratory effort, lungs clear to auscultation Cardiovascular: Rate/Rhythm: regular rate and regular rhythm Extremities: + edema (1+ edema ankles, much improved from previous); no calf tenderness Gastrointestinal (Abdomen): normal bowel sounds, soft, nontender, no hepatosplenomegaly Musculoskeletal: Extremities: extremities normal to inspection; no cyanosis and no clubbing Neurologic: moves all extremities (but generally weak throughout ) and awake Psychiatric: Orientation: alert, oriented to person and cooperative; + not oriented to place and + not oriented to time Apperance: appropriately dressed Results & Data Vital Signs (Past 12 Hours) Vital Signs Temp Pulse Pulse Resp BP BP Pulse Ox 10/13/18 12:41 36.3 C L 71 20 124/69 99 10/13/18 11:01 63 10/13/18 08:08 77 153/91 H 10/13/18 07:00 36.6 C 63 18 92/54 L 95 10/13/18 03:38 37 C 68 22 125/74 94 Laboratory Results 10/13/18 10/13/18 10/13/18 Range/Units 08:52 05:47 05:47 WBC 3.87 L (4.8-10.8) K/uL RBC 3.14 L (4.7-6.1) M/uL Hgb 8.6 L (14.0-18.0) g/dL Hct 27.3 L (42-52) % MCV 86.9 (80-100) fL MCH 27.4 (25-34) pg MCHC 31.5 L (32-36) g/dL RDW Std Deviation 50.9 H (36.4-46.3) fL RDW Coeff of Shabnam 15.9 H (11.5-14.5) % Plt Count 127 L (130-400) K/uL Immature Gran % (Auto) 0.0 % Neut % (Auto) 44.8 % Lymph % (Auto) 28.9 % [place] % (Auto) 7.2 % Eos % (Auto) 18.6 % Baso % (Auto) 0.5 % Immature Gran # (Auto) 0.00 (0.00-0.02) K/uL Neut # (Auto) 1.73 (1.4-6.5) K/uL Lymph # (Auto) 1.12 L (1.2-3.4) K/uL [place] # (Auto) 0.28 (0.11-0.59) K/uL Eos # (Auto) 0.72 H (0-0.5) K/uL Baso # (Auto) 0.02 (0-0.2) K/uL Platelet Estimate Decreased L (Normal) Giant Platelets 1+ PT (9.0-12.0) Seconds INR (0.9-1.1) Sodium 143 (136-145) mmol/L Potassium 3.5 (3.5-5.1) mmol/L Chloride 110 H (98-107) mmol/L Carbon Dioxide 26 (21-32) mmol/L Anion Gap 7.0 (3-11) BUN 31 H (7-18) mg/dl Creatinine 1.72 H (0.6-1.4) mg/dl Est Cr Clr Drug Dosing 37.5 ml/min Est GFR ( Amer) 42.0 Est GFR (Non-Af Amer) 36.2 BUN/Creatinine Ratio 18.3 (10-20) Glucose 78 (70-99) mg/dl Calcium 8.1 L (8.5-10.1) mg/dl Vitamin B1 Pending 10/13/18 Range/Units 05:47 WBC (4.8-10.8) K/uL RBC (4.7-6.1) M/uL Hgb (14.0-18.0) g/dL Hct (42-52) % MCV (80-100) fL MCH (25-34) pg MCHC (32-36) g/dL RDW Std Deviation (36.4-46.3) fL RDW Coeff of Shabnam (11.5-14.5) % Plt Count (130-400) K/uL Immature Gran % (Auto) % Neut % (Auto) % Lymph % (Auto) % [place] % (Auto) % Eos % (Auto) % Baso % (Auto) % Immature Gran # (Auto) (0.00-0.02) K/uL Neut # (Auto) (1.4-6.5) K/uL Lymph # (Auto) (1.2-3.4) K/uL [place] # (Auto) (0.11-0.59) K/uL Eos # (Auto) (0-0.5) K/uL Baso # (Auto) (0-0.2) K/uL Platelet Estimate (Normal) Giant Platelets PT 17.0 H (9.0-12.0) Seconds INR 1.7 H (0.9-1.1) Sodium (136-145) mmol/L Potassium (3.5-5.1) mmol/L Chloride (98-107) mmol/L Carbon Dioxide (21-32) mmol/L Anion Gap (3-11) BUN (7-18) mg/dl Creatinine (0.6-1.4) mg/dl Est Cr Clr Drug Dosing ml/min Est GFR ( Amer) Est GFR (Non-Af Amer) BUN/Creatinine Ratio (10-20) Glucose (70-99) mg/dl Calcium (8.5-10.1) mg/dl Vitamin B1 PG Care Time/CCT Total # of Minutes Spent Total Time Spent with Patient: Total time spent is greater than 50% in coordination of care (as documented) at patient's floor/unit and/or counseling patient: (1) Falls Encounter type: initial encounter Qualified Code(s): W19.XXXA - Unspecified fall, initial encounter (2) Anemia Anemia type: unspecified type Qualified Code(s): D64.9 - Anemia, unspecified (3) CKD (chronic kidney disease) Chronic kidney disease stage: stage 3 (moderate) Qualified Code(s): N18.3 - Chronic kidney disease, stage 3 (moderate)
[2018-10-13] MEDS: DICLOFENAC SOD 1% GEL 100 GM TUBE EXT SCH ×2 (16:53→21:41)
[2018-10-13] MEDS: WARFARIN SOD 4 MG TAB PO SCH (16:56)
[2018-10-13] MEDS: TAMSULOSIN HCL 0.4 MG CAP PO SCH (21:40)
[2018-10-13] MEDS: DONEPEZIL HCL 5 MG TAB PO SCH (21:40)
[2018-10-13] MEDS: MIRTAZAPINE TAB 15 MG TAB PO SCH (21:41)
[2018-10-14] MEDS: LEVOTHYROXINE SODIUM 25 MCG TABLET PO SCH (06:13)
[2018-10-14 07:03] LABS: Mean Corpuscular Hgb Conc 31.6 g/dL (32-36)
[2018-10-14 07:22] LABS: INR 1.9 (0.9-1.1); Prothrombin Time 18.2 Seconds (9.0-12.0)
[2018-10-14 07:42] LABS: Hematocrit (blood only) 26.5 % (42-52); Hemoglobin 8.6 g/dL (14.0-18.0); Mean Corpuscular Volume 88.3 fL (80-100); Platelet Count 137 K/uL (130-400); RDW Coefficient of Variation 15.8 % (11.5-14.5); RDW Standard Deviation 51.3 fL (36.4-46.3); White Blood Count 4.12 K/uL (4.8-10.8)
[2018-10-14 07:43] LABS: ALC (manual) 1.17 K/uL (1.2-3.4); Eosinophils # (manual) 0.47 K/uL (0-0.5); Eosinophils % (manual) 11.5 %; Hypochromasia Present; Lymphocytes # (manual) 1.17 K/uL (1.2-3.4); Lymphocytes % (manual) 28.3 %; Monocytes # (manual) 0.26 K/uL (0.11-0.59); Monocytes % (manual) 6.2 %; Platelet Estimate Decreased (Normal)
[2018-10-14 07:45] LABS: BUN Creatinine Ratio 20.4 (10-20); Calcium 8.4 mg/dl (8.5-10.1); Creatinine Clr Calc Pharmacy 42.4 ml/min; Est GFR (African American) 48.8; Est GFR (Non-African American) 42.1; Potassium 3.7 mmol/L (3.5-5.1)
[2018-10-14] MEDS: POTASSIUM CHLORIDE 10 MEQ TABCR PO SCH (08:15)
[2018-10-14] MEDS: THIAMINE HCL 100 MG TAB PO SCH (08:16)
[2018-10-14] MEDS: ENALAPRIL MALEATE 10 MG TAB PO SCH (08:17)
[2018-10-14] MEDS: AMLODIPINE BESYLATE 5 MG TAB PO SCH (08:17)
[2018-10-14] MEDS: CEROVITE ADV FORMULA TAB PO SCH (08:17)
[2018-10-14] MEDS: ALLOPURINOL 300 MG TAB PO SCH (08:18)
[2018-10-14] MEDS: CARVEDILOL 25 MG TAB PO SCH ×2 (08:18→19:59)
[2018-10-14] MEDS: DICLOFENAC SOD 1% GEL 100 GM TUBE EXT SCH ×4 (08:19→19:55)
[2018-10-14] MEDS: FUROSEMIDE 40 MG TAB PO SCH (08:19)
[2018-10-14] MEDS: FOLIC ACID 1 MG TAB PO SCH (08:19)
[2018-10-14] MEDS: DUTASTERIDE 0.5 MG CAPSULE PO SCH (08:20)
[2018-10-14] MEDS: ENOXAPARIN 80 MG/0.8 ML SYR SQ SCH ×2 (08:20→19:56)
[2018-10-14] MEDS: CIPROFLOXACIN 500 MG TAB PO SCH ×2 (08:20→19:58)
[2018-10-14] MEDS: WARFARIN SOD 4 MG TAB PO SCH (16:48)
[2018-10-14] MEDS: DONEPEZIL HCL 5 MG TAB PO SCH (19:58)
[2018-10-14] MEDS: TAMSULOSIN HCL 0.4 MG CAP PO SCH (19:58)
[2018-10-14] MEDS: MIRTAZAPINE TAB 15 MG TAB PO SCH (19:58)
--- NOTE | 2018-10-15 00:27 | Hospitalist Progress Note ---
Date of Service Date of service is actually 10/14/2018 October 15, 2018 Assessment & Plan (1) Falls: Related to weakness from malnutrition, weight loss, dementia, UTI PT/OT recommending SNF, in agreement Also with TSH elevated, normal FT4 but could be related--> started LT4 25 micrograms daily -Repeat TSH in 4 to 6 weeks -Given moderate malnutrition, also started thiamine and multivitamin B12 level is normal (2) Generalized weakness: As above, related to weight loss, dementia, malnutrition, and UTI, hypothryoidism PT/OT recommending SNF as above Seems to be improving daily here (3) Weight loss: Secondary to dementia most likely, reports he refuses to eat most of the time prior to admission reports approximately a 40 pound weight loss in the last 6 months Review of the chart here shows approximately a 14 kg weight loss in the last 9 months Appetite is greatly improved as per since being in the hospital He has gained about 4 kg since admission and his lower extremity edema has actually improved so not likely to be fluid weight - was recommended by PCP to have colonoscopy which could be done as an outpatient -Continue lily (4) Anemia: Hb with decrease to 8.6 but then stable today, average seems to be around 9 here 05/2018 was noted to be 11 No hx of c-scope Hemoccult pending this admission, but was negative in 01/2018 Fe studies consistent with anemia of chronic disease B12 normal, however folate is borderline low at 5 TSH is elevated--> started LT4 here -likely anemia of chronic renal disease and mild folate deficiency -Started folic acid 1 mg p.o. once daily -No role for erythropoietin or iron supplementation at this point -follow CBC (5) Ulceration: L buttock Traumatic Ulcer -wound care consult appreciated-awaiting wound MD to see about possible debridement-likely after the holiday? (6) UTI (urinary tract infection): UA abnormal, has long h/o recurrent UTIs, BPH Sees Urology Dr. Madera and question of compliance with BPH meds, was recently started on dutasteride -continue Flomax as well Prior cx from 12/2017 was E. coli resistant to bactrim Urine culture here is again the same exact organism as previous with E. coli only resistant to Bactrim Received 2 doses of IV ceftriaxone and will then converted to p.o. 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 given that organism was likely never eradicated from 10 months ago -Follow-up with urology as an outpatient (7) Permanent atrial fibrillation: Coumadin was held for anemia x 2 days upon admission but no active bleeding at this time, hgb fairly stable INR up to 1.9 today -Gave Coumadin at slightly higher dose for several days as he has missed a few doses upon admission and has been subtherapeutic-we will now revert back to home dosing of 4 mg on Wednesday and 2 mg on Wednesday -Given history of stroke, continue bridging with full dose anticoagulation Lovenox 1 mg/KG twice daily -Follow INR in the AM (8) Biventricular ICD (implantable cardioverter-defibrillator) in place: placed for syncope in setting of severe systolic CHF with EF now improved as of 2017 to 40-45% but previously much lower Follows with Dr. Wade -Was pacing appropriately on telemetry -Has since been removed from telemetry (9) H/O: stroke: L sided weakness residual CVA was 12 years ago -is on coumadin for Afib -Bridging with Lovenox as above while INR is subtherapeutic (10) HTN (hypertension): Home meds were initially being held due to recent hypoTN, likely related to weight loss Monitor but given systolic CHF, have since restarted Coreg and ACEi, amlodipine -Continue to hold home hydralazine and likely will not need to restart this (11) Obstructive sleep apnea: -continue CPAP nightly (12) CHF (congestive heart failure), NYHA class II: Chronic systolic (congestive) heart failure With EF as low as <30% requiring ICD placement in approx 2013, now EF improved in 2017 to 40-45% with medical management With lower extremity swelling in the last week, but overall body weight is significantly decreased from previous, could be from hypoalbuminemia Edema continues to improve each day -continue lasix -Continue Coreg, lotrel -Continue low Na+ diet -follow daily weights (13) CKD (chronic kidney disease): Chronic kidney disease, stage 3 (moderate) Baseline cr is 1.5-1.9, 1.7 on admission, improved slightly and still around baseline at 1.5 today Monitor BMP periodically -Avoid nephrotoxins -Renally dose medications when appropriate (14) Hypokalemia: continue home med of KCl 10 mEq daily (15) BPH (benign prostatic hyperplasia): continue home meds of Flomax and dutasteride -Follows with urology and has been suggested to get TURP in the past (16) Moderate malnutrition: Family reporting a nearly 40 lbs weight loss over the past half-year, BMI 19.4 -dietary consult appreciated -continue daily weights, Boost, Remeron -Started thiamine, multivitamin, folic acid (17) Dementia: -progressive, not eating much at home, weight loss, multiple falls -continue donepezil follows with Dr. Plata of Neuro -supportive care -Checked vitamin B1 level-this will take a week to come back and should be followed up on after discharge (18) Knee pain: bilateral knee stiffness, but denies pain -Continue Voltaren gel (19) Pancytopenia: Seems chronic for several years but slightly worse and could be due to nutritional deficiencies -No evidence of bleeding and platelets are improving today -Could have low-level underlying myelodysplasia -Consider hematology referral as an outpatient if worsens -Should have CBC monitored periodically (20) DVT prophylaxis: SCDs, Coumadin, Lovenox bridging Dispo-much improved medically, stable for discharge when fdc placement can be arranged Apparently, the [place] will not review his application until Wednesday and then placement to be determined after that Subjective Patient reports he feels great today. He is eating all of the food on his trays 3 meals a day and says he is feeling much better. He denies any chest pain or shortness of breath, denies joint pains or abdominal pain. He denies any trouble getting his urine out and shows me his urinal full of urine. RN reports that the patient is impulsive and does have the chair alarm on and keeps trying to get up without assistance even though they keep telling him to ring the [facility] for assistance. He does ask when he will be discharged and I reminded him that [facility] He has no other complaints. His is not present at the bedside today when I was seeing him. Review of Systems Review of Systems: All systems reviewed & are unremarkable except as noted in HPI & below Physical Exam Constitutional: + thin; no acute distress Eyes: PERRL, conjunctivae normal, anicteric sclerae Neck: trachea midline, no thyromegaly Respiratory: normal respiratory effort, lungs clear to auscultation Cardiovascular: Rate/Rhythm: regular rate and regular rhythm Extremities: + edema (Now only trace edema in the bilateral ankles, much improved from previous); no calf tenderness Gastrointestinal (Abdomen): normal bowel sounds, soft, nontender, no hepatosplenomegaly Musculoskeletal: Extremities: no cyanosis and no clubbing Neurologic: moves all extremities (but generally weak throughout, however is able to do leg lifts and flex and extend at the knees bilaterally today without difficulty ) and awake Psychiatric: Orientation: alert, oriented to person and cooperative; + not oriented to place and + not oriented to time Apperance: appropriately dressed Results & Data Vital Signs (Past 12 Hours) Vital Signs Temp Pulse Pulse Resp BP BP Pulse Ox 10/15/18 00:00 36.8 C 80 20 117/69 98 10/14/18 15:44 36.3 C L 80 20 131/66 99 Laboratory Results 10/14/18 10/14/18 10/14/18 Range/Units 06:32 06:32 06:32 WBC 4.12 L (4.8-10.8) K/uL RBC 3.00 L (4.7-6.1) M/uL Hgb 8.6 L (14.0-18.0) g/dL Hct 26.5 L (42-52) % MCV 88.3 (80-100) fL MCH 28.7 (25-34) pg MCHC 31.6 L (32-36) g/dL RDW Std Deviation 51.3 H (36.4-46.3) fL RDW Coeff of Shabnam 15.8 H (11.5-14.5) % Plt Count 137 (130-400) K/uL Neutrophils % (Manual) 54.0 % Lymphocytes % (Manual) 28.3 % Monocytes % (Manual) 6.2 % Eosinophils % (Manual) 11.5 % Neutrophils # (Manual) 2.22 (1.4-6.5) K/uL Total Absolute Neuts 2.22 (1.4-6.5) K/uL Lymphocytes # (Manual) 1.17 L (1.2-3.4) K/uL Total Abs Lymphocytes 1.17 L (1.2-3.4) K/uL Monocytes # (Manual) 0.26 (0.11-0.59) K/uL Eosinophils # (Manual) 0.47 (0-0.5) K/uL Platelet Estimate Decreased L (Normal) Hypochromasia Present PT 18.2 H (9.0-12.0) Seconds INR 1.9 H (0.9-1.1) Sodium 145 (136-145) mmol/L Potassium 3.7 (3.5-5.1) mmol/L Chloride 113 H (98-107) mmol/L Carbon Dioxide 27 (21-32) mmol/L Anion Gap 5.0 (3-11) BUN 31 H (7-18) mg/dl Creatinine 1.52 H (0.6-1.4) mg/dl Est Cr Clr Drug Dosing 42.4 ml/min Est GFR ( Amer) 48.8 Est GFR (Non-Af Amer) 42.1 BUN/Creatinine Ratio 20.4 H (10-20) Glucose 77 (70-99) mg/dl Calcium 8.4 L (8.5-10.1) mg/dl PG Care Time/CCT Total # of Minutes Spent Total Time Spent with Patient: Total time spent is greater than 50% in coordination of care (as documented) at patient's floor/unit and/or counseling patient: (1) Falls Encounter type: initial encounter Qualified Code(s): W19.XXXA - Unspecified fall, initial encounter (2) Anemia Anemia type: unspecified type Qualified Code(s): D64.9 - Anemia, unspecified (3) CKD (chronic kidney disease) Chronic kidney disease stage: stage 3 (moderate) Qualified Code(s): N18.3 - Chronic kidney disease, stage 3 (moderate)
[2018-10-15] MEDS: LEVOTHYROXINE SODIUM 25 MCG TABLET PO SCH (06:28)
[2018-10-15 06:58] LABS: INR 2.1 (0.9-1.1); Prothrombin Time 20.3 Seconds (9.0-12.0)
[2018-10-15] MEDS: ENALAPRIL MALEATE 10 MG TAB PO SCH (08:15)
[2018-10-15] MEDS: THIAMINE HCL 100 MG TAB PO SCH (08:16)
[2018-10-15] MEDS: CARVEDILOL 25 MG TAB PO SCH ×2 (08:16→19:59)
[2018-10-15] MEDS: POTASSIUM CHLORIDE 10 MEQ TABCR PO SCH (08:16)
[2018-10-15] MEDS: FOLIC ACID 1 MG TAB PO SCH (08:16)
[2018-10-15] MEDS: CIPROFLOXACIN 500 MG TAB PO SCH ×2 (08:16→19:55)
[2018-10-15] MEDS: CEROVITE ADV FORMULA TAB PO SCH (08:17)
[2018-10-15] MEDS: AMLODIPINE BESYLATE 5 MG TAB PO SCH (08:17)
[2018-10-15] MEDS: ALLOPURINOL 300 MG TAB PO SCH (08:17)
[2018-10-15] MEDS: DICLOFENAC SOD 1% GEL 100 GM TUBE EXT SCH ×4 (08:17→19:59)
[2018-10-15] MEDS: ENOXAPARIN 80 MG/0.8 ML SYR SQ SCH (08:17)
[2018-10-15] MEDS: FUROSEMIDE 40 MG TAB PO SCH (08:18)
[2018-10-15] MEDS: DUTASTERIDE 0.5 MG CAPSULE PO SCH (08:19)
[2018-10-15] MEDS: WARFARIN SOD 2 MG TAB PO SCH (16:38)
--- NOTE | 2018-10-15 18:20 | Hospitalist Progress Note ---
Date of Service October 15, 2018 Assessment & Plan (1) Falls: Related to weakness from malnutrition, weight loss, dementia, UTI PT/OT recommending SNF, in agreement Also with TSH elevated, normal FT4 but could be related--> started LT4 25 micrograms daily -Repeat TSH in 4 to 6 weeks -Given moderate malnutrition, also started thiamine and multivitamin B12 level is normal (2) Generalized weakness: As above, related to weight loss, dementia, malnutrition, and UTI, hypothryoidism PT/OT recommending SNF as above Seems to be improving daily here (3) Weight loss: Secondary to dementia most likely, reports he refuses to eat most of the time prior to admission reports approximately a 40 pound weight loss in the last 6 months Review of the chart here shows approximately a 14 kg weight loss in the last 9 months Appetite is greatly improved as per since being in the hospital He has gained about 4 kg since admission and his lower extremity edema has actually improved so not likely to be fluid weight - was recommended by PCP to have colonoscopy which could be done as an outpatient -Continue lily (4) Anemia: Hb with decrease to 8.6 but then stable today, average seems to be around 9 here 05/2018 was noted to be 11 No hx of c-scope Hemoccult pending this admission, but was negative in 01/2018 Fe studies consistent with anemia of chronic disease B12 normal, however folate is borderline low at 5 TSH is elevated--> started LT4 here -likely anemia of chronic renal disease and mild folate deficiency -Started folic acid 1 mg p.o. once daily -No role for erythropoietin or iron supplementation at this point -follow CBC (5) Ulceration: L buttock Traumatic Ulcer -wound care consult appreciated-awaiting wound care MD--> will ask Wound CUPROUS CHLORIDE HELPER to perform tomorrow (6) UTI (urinary tract infection): UA abnormal, has long h/o recurrent UTIs, BPH Sees Urology Dr. Madera and question of compliance with BPH meds, was recently started on dutasteride -continue Flomax as well Prior cx from 12/2017 was E. coli resistant to bactrim Urine culture here is again the same exact organism as previous with E. coli only resistant to Bactrim Received 2 doses of IV ceftriaxone and will then converted to p.o. 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 given that organism was likely never eradicated from 10 months ago -Follow-up with urology as an outpatient (7) Permanent atrial fibrillation: Coumadin was held for anemia x 2 days upon admission but no active bleeding at this time, hgb fairly stable INR up to 2.1 today -Continue Coumadin at home dosing of 4 mg on Wednesday and 2 mg on Wednesday -Given history of stroke, was bridged with full dose Lovenox but will now discontinue as INR is therapeutic -Follow INR in the AM (8) Biventricular ICD (implantable cardioverter-defibrillator) in place: placed for syncope in setting of severe systolic CHF with EF now improved as of 2017 to 40-45% but previously much lower Follows with Dr. Wade -Was pacing appropriately on telemetry -Has since been removed from telemetry (9) H/O: stroke: L sided weakness residual CVA was 12 years ago -is on coumadin for Afib (10) HTN (hypertension): Home meds were initially being held due to recent hypoTN, likely related to weight loss Monitor but given systolic CHF, have since restarted Coreg and ACEi, amlodipine -Continue to hold home hydralazine and likely will not need to restart this (11) Obstructive sleep apnea: -continue CPAP nightly (12) CHF (congestive heart failure), NYHA class II: Chronic systolic (congestive) heart failure With EF as low as <30% requiring ICD placement in approx 2013, now EF improved in 2017 to 40-45% with medical management With lower extremity swelling in the last week, but overall body weight is significantly decreased from previous, could be from hypoalbuminemia Edema continues to improve each day -continue lasix -Continue Coreg, lotrel -Continue low Na+ diet -follow daily weights (13) CKD (chronic kidney disease): Chronic kidney disease, stage 3 (moderate) Baseline cr is 1.5-1.9, 1.7 on admission, improved slightly and still around baseline at 1.5 today Monitor BMP periodically -Avoid nephrotoxins -Renally dose medications when appropriate (14) Hypokalemia: continue home med of KCl 10 mEq daily (15) BPH (benign prostatic hyperplasia): continue home meds of Flomax and dutasteride -Follows with urology and has been suggested to get TURP in the past (16) Moderate malnutrition: Family reporting a nearly 40 lbs weight loss over the past half-year, BMI 19.4 -dietary consult appreciated -continue daily weights, Boost, Remeron -Started thiamine, multivitamin, folic acid (17) Dementia: -progressive, not eating much at home, weight loss, multiple falls -continue donepezil follows with Dr. Plata of Neuro -supportive care -Checked vitamin B1 level-this will take a week to come back and should be followed up on after discharge (18) Knee pain: bilateral knee stiffness, but denies pain -Continue Voltaren gel (19) Pancytopenia: Seems chronic for several years but slightly worse and could be due to nutritional deficiencies -No evidence of bleeding and platelets are improving today -Could have low-level underlying myelodysplasia -Consider hematology referral as an outpatient if worsens -Should have CBC monitored periodically (20) DVT prophylaxis: SCDs, Coumadin Dispo-much improved medically, stable for discharge when [facility] placement can be arranged [facility] and then placement to be determined after that Subjective Feeling great, no complaints. Is eating all of his meals. Review of Systems Review of Systems: All systems reviewed & are unremarkable except as noted in HPI & below Physical Exam Constitutional: + thin; no acute distress Eyes: PERRL, conjunctivae normal, anicteric sclerae ENMT: external ear and nose normal, oropharynx normal Neck: trachea midline, no thyromegaly Respiratory: normal respiratory effort, lungs clear to auscultation Cardiovascular: Rate/Rhythm: regular rate and regular rhythm Extremities: + edema (Now only trace edema in the bilateral ankles, much improved from previous); no calf tenderness Gastrointestinal (Abdomen): normal bowel sounds, soft, nontender, no hepatosplenomegaly Musculoskeletal: Extremities: no cyanosis and no clubbing Neurologic: moves all extremities (but generally weak throughout, however is able to do leg lifts and flex and extend at the knees bilaterally today without difficulty ) and awake Psychiatric: Orientation: alert, oriented to person and cooperative; + not oriented to place and + not oriented to time Apperance: appropriately dressed Results & Data Vital Signs (Past 12 Hours) Vital Signs Temp Pulse Resp BP Pulse Ox 10/15/18 14:43 36.3 C L 65 20 112/64 100 10/15/18 07:13 36.6 C 74 18 148/85 H 98 Laboratory Results 10/15/18 Range/Units 06:18 PT 20.3 H (9.0-12.0) Seconds INR 2.1 H (0.9-1.1) PG Care Time/CCT Total # of Minutes Spent Total Time Spent with Patient: Total time spent is greater than 50% in coordination of care (as documented) at patient's floor/unit and/or counseling patient: (1) Falls Encounter type: initial encounter Qualified Code(s): W19.XXXA - Unspecified fall, initial encounter (2) Anemia Anemia type: unspecified type Qualified Code(s): D64.9 - Anemia, unspecified (3) CKD (chronic kidney disease) Chronic kidney disease stage: stage 3 (moderate) Qualified Code(s): N18.3 - Chronic kidney disease, stage 3 (moderate)
[2018-10-15] MEDS: DONEPEZIL HCL 5 MG TAB PO SCH (19:54)
[2018-10-15] MEDS: TAMSULOSIN HCL 0.4 MG CAP PO SCH (19:55)
[2018-10-15] MEDS: MIRTAZAPINE TAB 15 MG TAB PO SCH (19:56)
[2018-10-16] MEDS: LEVOTHYROXINE SODIUM 25 MCG TABLET PO SCH (06:14)
[2018-10-16 07:08] LABS: INR 2.1 (0.9-1.1); Prothrombin Time 20.1 Seconds (9.0-12.0)
[2018-10-16] MEDS: FOLIC ACID 1 MG TAB PO SCH (09:02)
[2018-10-16] MEDS: AMLODIPINE BESYLATE 5 MG TAB PO SCH (09:02)
[2018-10-16] MEDS: CEROVITE ADV FORMULA TAB PO SCH (09:02)
[2018-10-16] MEDS: CIPROFLOXACIN 500 MG TAB PO SCH ×2 (09:03→20:30)
[2018-10-16] MEDS: THIAMINE HCL 100 MG TAB PO SCH (09:03)
[2018-10-16] MEDS: POTASSIUM CHLORIDE 10 MEQ TABCR PO SCH (09:03)
[2018-10-16] MEDS: ENALAPRIL MALEATE 10 MG TAB PO SCH (09:03)
[2018-10-16] MEDS: CARVEDILOL 25 MG TAB PO SCH ×2 (09:03→20:31)
[2018-10-16] MEDS: ALLOPURINOL 300 MG TAB PO SCH (09:03)
[2018-10-16] MEDS: FUROSEMIDE 40 MG TAB PO SCH (09:03)
[2018-10-16] MEDS: DUTASTERIDE 0.5 MG CAPSULE PO SCH (09:04)
[2018-10-16] MEDS: DICLOFENAC SOD 1% GEL 100 GM TUBE EXT SCH ×4 (09:04→20:30)
--- NOTE | 2018-10-16 14:35 | Wound Consultation ---
Date of Consultation October 16, 2018 Assessment & Plan (1) Unstageable pressure ulcer of left buttock: Unstageable pressure ulcer of the left buttock. Topical 4% xylocaine applied to the wound. With the pt's permission, I attempted debridement of the wound using a #7 currette. Wound was debrided of some slough. I was unable to remove much of the slough and eschar, so I did score the wound using a #15 blade. Minimal bleeding occured, and was controlled with pressure. Pt tolerated the procedure well. This represents a non-excisional debridement of less than 20cm2. Wound culture was obtained today. Pt is currently on Cipro for a UTI. Will await results to adjust abx. Will apply Santyl to the wound daily with an optifoam. Low air loss mattress ordered. Pt at increased risk for pressure wounds. Primary goal is wound healing. F/u with wound care as an outpatient in 1 week. The pt was seen today, and note dictated by Winsome DE. Thanks for the consult. History of Present Illness Reason for Consultation: wound of the left buttock Attending Physician: Arminda Peters MD History of Present Illness Consultation request for 83 yo male noted to have a wound on left buttock by his 1 week ago. Pt is pleasantly confused, and a poor historian d/t dementia. Past medical hx includes a hx of a-fib, stroke, HTN, sleep apnea, CHF, CKD, BPH, UTI, pancytopenia, and dementia. Allergies Allergy/AdvReac Type Severity Reaction Status Date / Time No Known Drug Allergies Allergy Verified 10/10/18 13:48 Home Medications Home Medications Medication Instructions Recorded Confirmed Type donepezil 5 mg tablet 5 mg PO QPM #90 tab 09/12/18 10/10/18 History dutasteride 0.5 mg capsule 0.5 mg PO QAM #90 cap 09/12/18 10/10/18 History furosemide 40 mg tablet 40 mg PO QAM #90 tab 09/12/18 10/10/18 History potassium chloride ER 10 mEq 10 meq PO QAM #90 tab 09/12/18 10/10/18 History tablet,extended release tamsulosin 0.4 mg capsule 0.4 mg PO HS #90 cap 09/12/18 10/10/18 History allopurinol 300 mg tablet 300 mg PO QAM #90 tab 09/14/18 10/10/18 History azelastine 137 mcg (0.1 %) nasal 2 sprays INTRANASAL DAILY PRN ml 09/14/18 10/10/18 History spray aerosol carvedilol 25 mg tablet 25 mg PO BID #180 tab 09/14/18 10/10/18 History ergocalciferol (vitamin D2) 50,000 50,000 units PO MONTHLY #21 cap 09/14/18 10/10/18 History unit capsule warfarin 4 mg tablet 4 mg PO 4XWK tab 10/06/18 10/10/18 History amlodipine-benazepril 1 cap PO QAM 10/10/18 10/10/18 History hydralazine 50 mg PO TID 10/10/18 10/10/18 History mirtazapine [Remeron] 7.5 mg PO HS 10/10/18 10/10/18 History warfarin 2 mg PO 3XWK 10/10/18 10/10/18 History Patient History Medical History Permanent atrial fibrillation (Chronic) 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) Chronic anticoagulation (Chronic) H/O: stroke (Chronic) HTN (hypertension) (Chronic) Obstructive sleep apnea CHF (congestive heart failure), NYHA class II (Chronic 07/25/13) LBBB (left bundle branch block) (Chronic 07/25/13) 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) Social History Preferred Language: Somali Communication Ability: Effective Beliefs That Will Affect Care: None marital status: Current Living Situation: Spouse Feels Safe at Home: Yes Smoking Status: Never smoker Hx Alcohol Use: Yes Alcohol type: beer Hx Substance Use: No Review of Systems Constitutional: no fever and no chills Eyes: no worsening vision Ear, Nose, Mouth, Throat: no dizziness Respiratory: no dyspnea Cardiovascular: no chest pain Gastrointestinal: no abdominal pain, no nausea and no vomiting Physical Exam Physical Exam: Temp Pulse Resp BP Pulse Ox 36.8 C 77 18 158/74 H 97 10/16/18 07:05 10/16/18 07:05 10/16/18 07:05 10/16/18 07:05 10/16/18 07:05 Pt is afebrile. He is hypertensive at 158/74. Unstageable pressure ulcer to the left buttock. Wound base is covered in eschar. No odor or drainage present. Periwound intact. Constitutional: average body habitus; no acute distress Neck: normal visual inspection Respiratory: normal respiratory effort, lungs clear to auscultation Cardiovascular: RRR, no murmur, no edema Gastrointestinal (Abdomen): Inspection/Auscultation: normal bowel sounds Percussion/Palpation: abdomen soft; abdomen nontender Psychiatric: A+Ox3, euthymic affect Results & Data Vital Signs (Past 12 Hours) Vital Signs Temp Pulse Resp BP Pulse Ox 10/16/18 07:05 36.8 C 77 18 158/74 H 97
--- NOTE | 2018-10-16 15:11 | Hospitalist Progress Note ---
Date of Service October 16, 2018 Assessment & Plan (1) Falls: Related to weakness from malnutrition, weight loss, dementia, UTI PT/OT recommending SNF, in agreement- pending placement at [facility]. Also with TSH elevated, normal FT4 but could be related--> started levothyroxine 25 micrograms daily -Repeat TSH in 4 to 6 weeks -Given moderate malnutrition, thiamine and multivitamin initiated B12 level is normal (2) Generalized weakness: As above, related to weight loss, dementia, malnutrition, and UTI, hypothryoidism PT/OT recommending SNF as above- pending placement at [facility] in [place]. (3) Weight loss: Most likely secondary to dementia. Appetite improving while inpatient. -Continue remeron (4) Anemia: Hb with decrease to 8.6 on 10-14-18. Not repeated since that time. 05/2018 was noted to be 11 No hx of colonoscopy. Can be done as an outpatient. Hemoccult pending this admission, but was negative in 01/2018. Fe studies consistent with anemia of chronic disease B12 normal, however folate is borderline low at 5 TSH is elevated--> started LT4 here -likely anemia of chronic renal disease and mild folate deficiency -Started folic acid 1 mg p.o. once daily -No role for erythropoietin or iron supplementation at this point -Will recheck CBC in AM. (5) Ulceration: Unstageable pressure ulcer of the left buttock. See wound care consultation from today. Wound will be dressed with Santyl and an optifoam daily. Wound culture pending. Low air loss mattress ordered. Pt should f/u with the wound clinic as an outpatient in 1 week. (6) UTI (urinary tract infection): UA abnormal, has long h/o recurrent UTIs, BPH Sees Urology Dr. Madera and question of compliance with BPH meds, was recently started on dutasteride -continue Flomax as well Prior cx from 12/2017 was E. coli resistant to bactrim Urine culture here is again the same exact organism as previous with E. coli only resistant to Bactrim Received 2 doses of IV ceftriaxone and will then converted to p.o. 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 Repeat in AM. -Repeat CBC in AM. -Continue Coumadin at home dosing of 4 mg on Wednesday and 2 mg on Wednesday (8) Biventricular ICD (implantable cardioverter-defibrillator) in place: placed for syncope in setting of severe systolic CHF with EF now improved as of 2017 to 40-45% but previously much lower Follows with Dr. Wade. Pt was to see Dr. Wade tomorrow for f/u. Will consult him for pacer interrogation tomorrow while inpatient if able. -Was pacing appropriately on telemetry -Has since been removed from telemetry (9) H/O: stroke: L sided weakness residual CVA was 12 years ago -is on coumadin for Afib (10) HTN (hypertension): -BP elevated at 158/74 today. Pt asymptomatic. Home meds were initially being held due to recent hypoTN, likely related to weight loss Monitor but given systolic CHF, have since restarted Coreg and ACEi, amlodipine -Continue to hold home hydralazine and likely will not need to restart this (11) Obstructive sleep apnea: -continue CPAP nightly (12) CHF (congestive heart failure), NYHA class II: Chronic systolic (congestive) heart failure With EF as low as <30% requiring ICD placement in approx 2013, now EF improved in 2017 to 40-45% with medical management With lower extremity swelling in the last week, but overall body weight is significantly decreased from previous, could be from hypoalbuminemia Edema continues to improve each day -continue lasix -Continue Coreg, lotrel -Continue low Na+ diet -follow daily weights (13) CKD (chronic kidney disease): Chronic kidney disease, stage 3 (moderate) Baseline cr is 1.5-1.9, 1.7 on admission, improved to 1.52. - Repeat BMP in AM. -Avoid nephrotoxins -Renally dose medications when appropriate (14) Hypokalemia: continue home med of KCl 10 mEq daily (15) BPH (benign prostatic hyperplasia): continue home meds of Flomax and dutasteride -Follows with urology and has been suggested to get TURP in the past (16) Moderate malnutrition: Family reporting a nearly 40 lbs weight loss over the past half-year, BMI 19.4 -dietary consult appreciated -continue daily weights, Boost, Remeron -Started thiamine, multivitamin, folic acid (17) Dementia: -progressive, not eating much at home, weight loss, multiple falls -continue donepezil follows with Dr. Plata of Neuro -supportive care -Checked vitamin B1 level-this will take a week to come back and should be followed up on after discharge (18) Knee pain: bilateral knee stiffness, but denies pain -Continue Voltaren gel (19) Pancytopenia: Seems chronic for several years but slightly worse and could be due to nutritional deficiencies -No evidence of bleeding -Could have low-level underlying myelodysplasia -Consider hematology referral as an outpatient if worsens -Repeat CBC in AM. (20) DVT prophylaxis: SCDs, Coumadin Dispo-much improved medically, stable for discharge when alf placement can be arranged Apparently, the [facility] will not review [facility] application until Wednesday and then placement to be determined after that Supervising Physician Co-Signing Physician Notes SANTINO Supervision Note: I did not personally see or examine the patient today, but I verified all blanco points of SANTINO Gibson assessment and plan with the following exceptions/additions: SANTINO Gibson scored the wound today on the buttocks and redressed the wound. Subjective 83 yo male admitted s/p fall. Pending placement at [facility]. Pt denies pain, f/c, n/v, SOB, or chest pain today. He is somewhat confused, and is a poor historian. Review of Systems Constitutional: no fever and no chills Eyes: no worsening vision Ear, Nose, Mouth, Throat: no dizziness Respiratory: no dyspnea Cardiovascular: no chest pain Gastrointestinal: no abdominal pain, no nausea and no vomiting Psychiatric: no confusion (Pt denies confusion. ) Physical Exam Physical Exam: Temp Pulse Resp BP Pulse Ox 36.8 C 77 18 158/74 H 97 10/16/18 07:05 10/16/18 07:05 10/16/18 07:05 10/16/18 07:05 10/16/18 07:05 Pt is afebrile. He is hypertensive at 158/74, but is asymptomatic. Constitutional: + thin; no acute distress ENMT: Ears: no hearing impairment Neck: normal visual inspection Respiratory: normal respiratory effort, lungs clear to auscultation Cardiovascular: RRR, no murmur, no edema Gastrointestinal (Abdomen): Inspection/Auscultation: normal bowel sounds Percussion/Palpation: abdomen soft; abdomen nontender Psychiatric: A+Ox3, euthymic affect Results & Data Vital Signs (Past 12 Hours) Vital Signs Temp Pulse Resp BP Pulse Ox 10/16/18 07:05 36.8 C 77 18 158/74 H 97 PG Care Time/CCT Total # of Minutes Spent Total Time Spent with Patient: Total time spent is greater than 50% in coordination of care (as documented) at patient's floor/unit and/or counseling patient: (1) Anemia Anemia type: unspecified type Qualified Code(s): D64.9 - Anemia, unspecified (2) CKD (chronic kidney disease) Chronic kidney disease stage: stage 3 (moderate) Qualified Code(s): N18.3 - Chronic kidney disease, stage 3 (moderate) (3) Falls Encounter type: initial encounter Qualified Code(s): W19.XXXA - Unspecified fall, initial encounter
[2018-10-16] MEDS: WARFARIN SOD 4 MG TAB PO SCH (16:22)
[2018-10-16] MEDS: COLLAGENASE OINT 30 GM TUBE EXT SCH (16:23)
[2018-10-16] MEDS: DONEPEZIL HCL 5 MG TAB PO SCH (20:31)
[2018-10-16] MEDS: TAMSULOSIN HCL 0.4 MG CAP PO SCH (20:32)
[2018-10-16] MEDS: MIRTAZAPINE TAB 15 MG TAB PO SCH (20:33)
[2018-10-17] MEDS: LEVOTHYROXINE SODIUM 25 MCG TABLET PO SCH (06:28)
[2018-10-17 07:48] LABS: Basophils # (auto) 0.01 K/uL (0-0.2); Basophils % (auto) 0.3 %; Eosinophils # (auto) 0.79 K/uL (0-0.5); Eosinophils % (auto) 22.4 %; Hematocrit (blood only) 23.2 % (42-52); Hemoglobin 7.4 g/dL (14.0-18.0); Immature Granulocytes # (auto) 0.01 K/uL (0.00-0.02); Immature Granulocytes % (auto) 0.3 %; Lymphocytes # (auto) 1.14 K/uL (1.2-3.4); Lymphocytes % (auto) 32.3 %; Mean Corpuscular Hgb Conc 31.9 g/dL (32-36); Mean Corpuscular Volume 86.9 fL (80-100); Mean Platelet Volume 11.8 fL (7.4-10.4); Monocytes # (auto) 0.28 K/uL (0.11-0.59); Monocytes % (auto) 7.9 %; Neutrophils % (auto) 36.8 %; Platelet Count 121 K/uL (130-400); RDW Coefficient of Variation 16.1 % (11.5-14.5); RDW Standard Deviation 51.6 fL (36.4-46.3); Red Blood Count 2.67 M/uL (4.7-6.1); White Blood Count 3.53 K/uL (4.8-10.8)
[2018-10-17 08:01] LABS: INR 2.1 (0.9-1.1); Prothrombin Time 20.2 Seconds (9.0-12.0)
[2018-10-17 08:17] LABS: BUN Creatinine Ratio 22.7 (10-20); Calcium 8.6 mg/dl (8.5-10.1); Est GFR (African American) 45.5; Est GFR (Non-African American) 39.2; Potassium 3.6 mmol/L (3.5-5.1)
[2018-10-17 08:29] LABS: Schistocytes Occasional; Tear Drop Cells 1+
[2018-10-17] MEDS: ENALAPRIL MALEATE 10 MG TAB PO SCH (08:41)
[2018-10-17] MEDS: POTASSIUM CHLORIDE 10 MEQ TABCR PO SCH (08:42)
[2018-10-17] MEDS: CEROVITE ADV FORMULA TAB PO SCH (08:42)
[2018-10-17] MEDS: FUROSEMIDE 40 MG TAB PO SCH (08:42)
[2018-10-17] MEDS: AMLODIPINE BESYLATE 5 MG TAB PO SCH (08:42)
[2018-10-17] MEDS: CARVEDILOL 25 MG TAB PO SCH ×2 (08:42→21:29)
[2018-10-17] MEDS: ALLOPURINOL 300 MG TAB PO SCH (08:42)
[2018-10-17] MEDS: CIPROFLOXACIN 500 MG TAB PO SCH ×2 (08:43→21:29)
[2018-10-17] MEDS: THIAMINE HCL 100 MG TAB PO SCH (08:43)
[2018-10-17] MEDS: FOLIC ACID 1 MG TAB PO SCH (08:43)
[2018-10-17] MEDS: DICLOFENAC SOD 1% GEL 100 GM TUBE EXT SCH ×4 (08:44→21:30)
[2018-10-17] MEDS: DUTASTERIDE 0.5 MG CAPSULE PO SCH (08:44)
[2018-10-17] MEDS: COLLAGENASE OINT 30 GM TUBE EXT SCH (08:45)
[2018-10-17] MEDS: WARFARIN SOD 4 MG TAB PO SCH (15:48)
--- NOTE | 2018-10-17 16:19 | Hospitalist Progress Note ---
Date of Service October 17, 2018 Assessment & Plan (1) Falls: Related to weakness from malnutrition, weight loss, dementia, UTI PT/OT recommending SNF, in agreement- [facility]. Also with TSH elevated, normal FT4 but could be related--> started levothyroxine 25 micrograms daily -Repeat TSH in 4 to 6 weeks -Given moderate malnutrition, thiamine and multivitamin initiated B12 level is normal (2) Generalized weakness: As above, related to weight loss, dementia, malnutrition, and UTI, hypothryoidism PT/OT recommending SNF as above- pending placement at [facility] in [place]. (3) Weight loss: Most likely secondary to dementia. Appetite improving while inpatient. -Continue remeron (4) Anemia: Hb with decrease to 7.4, normocytic - patient asymptomatic 05/2018 was noted to be 11 No hx of colonoscopy. Can be done as an outpatient. Hemoccult pending this admission, but was negative in 01/2018. Fe studies consistent with anemia of chronic disease B12 normal, however folate is borderline low at 5 TSH is elevated--> started LT4 here -likely anemia of chronic renal disease and mild folate deficiency -Continue folic acid 1 mg p.o. once daily (5) Ulceration: Unstageable pressure ulcer of the left buttock. Wound care consulted Wound will be dressed with Santyl and an optifoam daily. Wound culture grew coag negative staph Low air loss mattress ordered. Pt should f/u with the wound clinic as an outpatient in 1 week. (6) UTI (urinary tract infection): UA abnormal, has long h/o recurrent UTIs, BPH Sees Urology Dr. Madera and question of compliance with BPH meds, was recently started on dutasteride -continue Flomax as well Prior cx from 12/2017 was E. coli resistant to bactrim Urine culture here is again E. coli resistant to Bactrim Received 2 doses of IV ceftriaxone and will then converted to p.o. 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 -Repeat CBC in AM. -Continue Coumadin at home dosing of 4 mg on Wednesday and 2 mg on Wednesday - will need to be monitored more often as discharge due to concurrent administration with Cipro (8) Biventricular ICD (implantable cardioverter-defibrillator) in place: placed for syncope in setting of severe systolic CHF with EF now improved as of 2017 to 40-45% but previously much lower Follows with Dr. Wade. Pt was to see Dr. Wade tomorrow for f/u. Will consult him for pacer interrogation tomorrow while inpatient if able. -Was pacing appropriately on telemetry -Has since been removed from telemetry (9) H/O: stroke: L sided weakness residual CVA was 12 years ago -is on coumadin for Afib (10) HTN (hypertension): Home meds were initially being held due to recent hypoTN, likely related to weight loss Monitor but given systolic CHF, have since restarted Coreg and ACEi, amlodipine -Continue to hold home hydralazine and likely will not need to restart this (11) Obstructive sleep apnea: -continue CPAP nightly (12) CHF (congestive heart failure), NYHA class II: Chronic systolic (congestive) heart failure With EF as low as <30% requiring ICD placement in approx 2013, now EF improved in 2017 to 40-45% with medical management With lower extremity swelling in the last week, but overall body weight is significantly decreased from previous, could be from hypoalbuminemia Edema continues to improve each day -continue lasix -Continue Coreg, lotrel -Continue low Na+ diet -follow daily weights (13) CKD (chronic kidney disease): Chronic kidney disease, stage 3 (moderate) at Baseline cr which is is 1.5-1.9 -Avoid nephrotoxins -Renally dose medications when appropriate (14) Hypokalemia: continue home med of KCl 10 mEq daily (15) BPH (benign prostatic hyperplasia): continue home meds of Flomax and dutasteride -Follows with urology and has been suggested to get TURP in the past (16) Moderate malnutrition: Family reporting a nearly 40 lbs weight loss over the past half-year, BMI 19.4 -dietary consult appreciated -continue daily weights, Boost, Remeron -Continue thiamine, multivitamin, folic acid (17) Dementia: -progressive, not eating much at home, weight loss, multiple falls -continue donepezil follows with Dr. Plata of [facility] -supportive care -Checked vitamin B1 level was low at 6 - continue thiamine supplementation (18) Knee pain: bilateral knee stiffness, but denies pain -Continue Voltaren gel (19) Pancytopenia: Seems chronic for several years but slightly worse and could be due to nutritional deficiencies -No evidence of bleeding -Could have low-level underlying myelodysplasia -Hematology referral as an outpatient - patient currently asymptomatic from anemia - recheck am (20) DVT prophylaxis: SCDs, [facility] Subjective Mr. Tovar has no complaints, feeling well. His is bedside. Review of Systems Review of Systems: All systems reviewed & are unremarkable except as noted in HPI & below Physical Exam Physical Exam: General: no distress Eyes: normal inspection, PERLL Respiratory: chest non tender, clear to auscultation, normal breath sounds, no respiratory distress, no accessory muscle use Cardiac: regular rate and rhythm, no rub or gallop, no murmur, no edema, no jvd GI/: active bowel sounds, no abd pain or tenderness, soft, non distended Extremities: normal range of motion, normal strength, non tender Neuro/Psych: alert and oriented x 3, normal mood and affect Skin: normal color, dry Results & Data Vital Signs (Past 12 Hours) Vital Signs Temp Pulse Resp BP BP Pulse Ox 10/17/18 15:55 36.5 C 72 19 138/74 99 10/17/18 07:35 36.8 C 81 18 183/85 H 98 PG Care Time/CCT Total # of Minutes Spent Total Time Spent with Patient: Total time spent is greater than 50% in coordination of care (as documented) at patient's floor/unit and/or counseling patient: (1) Falls Encounter type: initial encounter Qualified Code(s): W19.XXXA - Unspecified fall, initial encounter (2) Anemia Anemia type: unspecified type Qualified Code(s): D64.9 - Anemia, unspecified (3) CKD (chronic kidney disease) Chronic kidney disease stage: stage 3 (moderate) Qualified Code(s): N18.3 - Chronic kidney disease, stage 3 (moderate)
--- NOTE | 2018-10-17 17:18 | Cardiology Consultation ---
Date of Consultation October 17, 2018 Assessment & Plan (1) Falls: It sounds as though his falls are from losing his balance but I need to review the ICD interrogation to make sure they are not due to an arrhythmia. (2) Biventricular ICD (implantable cardioverter-defibrillator) in place: His ICD is functioning well on interrogation. He did have an episode of ventricular tachycardia appropriate treated by the device several months ago. (3) Dementia: He seems quite confused today on my evaluation, in the past he has been much more alert. Some of that may be from a somewhat prolonged hospitalization or change in baseline. I have not seen him for 6 months in the office. History of Present Illness Reason for Consultation: ICD in place Attending Physician: Benigno Hanna MD History of Present Illness This is an 83-year-old male, well-known to me from the outpatient setting, who has a nonischemic cardiomyopathy and an ICD in place as well as permanent atrial fibrillation. He was admitted on October 10, 2018 with frequent falls. He denies loss of consciousness. His ICD was interrogated. Allergies Allergy/AdvReac Type Severity Reaction Status Date / Time No Known Drug Allergies Allergy Verified 10/10/18 13:48 Home Medications Home Medications Medication Instructions Recorded Confirmed Type donepezil 5 mg tablet 5 mg PO QPM #90 tab 09/12/18 10/10/18 History dutasteride 0.5 mg capsule 0.5 mg PO QAM #90 cap 09/12/18 10/10/18 History furosemide 40 mg tablet 40 mg PO QAM #90 tab 09/12/18 10/10/18 History potassium chloride ER 10 mEq 10 meq PO QAM #90 tab 09/12/18 10/10/18 History tablet,extended release tamsulosin 0.4 mg capsule 0.4 mg PO HS #90 cap 09/12/18 10/10/18 History allopurinol 300 mg tablet 300 mg PO QAM #90 tab 09/14/18 10/10/18 History azelastine 137 mcg (0.1 %) nasal 2 sprays INTRANASAL DAILY PRN ml 09/14/18 10/10/18 History spray aerosol carvedilol 25 mg tablet 25 mg PO BID #180 tab 09/14/18 10/10/18 History ergocalciferol (vitamin D2) 50,000 50,000 units PO MONTHLY #21 cap 09/14/18 10/10/18 History unit capsule warfarin 4 mg tablet 4 mg PO 4XWK tab 10/06/18 10/10/18 History amlodipine-benazepril 1 cap PO QAM 10/10/18 10/10/18 History hydralazine 50 mg PO TID 10/10/18 10/10/18 History mirtazapine [Remeron] 7.5 mg PO HS 10/10/18 10/10/18 History warfarin 2 mg PO 3XWK 10/10/18 10/10/18 History Patient History Medical History Permanent atrial fibrillation (Chronic) 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) Chronic anticoagulation (Chronic) H/O: stroke (Chronic) HTN (hypertension) (Chronic) Obstructive sleep apnea CHF (congestive heart failure), NYHA class II (Chronic 07/25/13) LBBB (left bundle branch block) (Chronic 07/25/13) 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 Somewhat confused but conversational. HEENT: Unremarkable Neck: No jugular venous distention, carotid pulses are normal and equal bilaterally without bruits. Pulmonary: Decreased breath sounds throughout. Cardiac: Regular rhythm with no murmur, gallop or rub. Abdomen: Soft, nontender with normal bowel sounds. Extremities: No edema. Distal pulses intact. Neurologic: No focal findings. Gait is steady. Skin: No rash, ecchymoses or petechiae. Results & Data Vital Signs (Past 12 Hours) Vital Signs Temp Pulse Resp BP BP Pulse Ox 10/17/18 15:55 36.5 C 72 19 138/74 99 10/17/18 07:35 36.8 C 81 18 183/85 H 98 Diagnostic Findings Admission electrocardiogram: On October 10, 2018 he was pacing in the ventricle appropriately with a biventricular complex, his atrial rate was sometimes paced and sometimes tract with his pacemaker with intrinsic atrial rhythm. ICD interrogation: ICD interrogation shows some atrial fibrillation, longest episode being about 1 hour and occurring around the beginning of August, other episodes were significantly shorter. 1 treated episode of ventricular tachycardia which occurred on August 10, 2018. Telemetry: He is no longer on telemetry, when he was his device appeared to be working well with underlying atrial fibrillation and ventricular pacing (1) Falls Encounter type: initial encounter Qualified Code(s): W19.XXXA - Unspecified fall, initial encounter
[2018-10-17] MEDS: DONEPEZIL HCL 5 MG TAB PO SCH (21:29)
[2018-10-17] MEDS: TAMSULOSIN HCL 0.4 MG CAP PO SCH (21:30)
[2018-10-17] MEDS: MIRTAZAPINE TAB 15 MG TAB PO SCH (21:30)
[2018-10-18] MEDS: LEVOTHYROXINE SODIUM 25 MCG TABLET PO SCH (05:58)
[2018-10-18 08:03] LABS: INR 2.1 (0.9-1.1); Prothrombin Time 20.3 Seconds (9.0-12.0)
[2018-10-18] MEDS: COLLAGENASE OINT 30 GM TUBE EXT SCH (08:25)
[2018-10-18] MEDS: FOLIC ACID 1 MG TAB PO SCH (08:26)
[2018-10-18] MEDS: ALLOPURINOL 300 MG TAB PO SCH (08:26)
[2018-10-18] MEDS: CIPROFLOXACIN 500 MG TAB PO SCH ×2 (08:26→20:20)
[2018-10-18] MEDS: FUROSEMIDE 40 MG TAB PO SCH (08:26)
[2018-10-18] MEDS: CEROVITE ADV FORMULA TAB PO SCH (08:26)
[2018-10-18] MEDS: ENALAPRIL MALEATE 10 MG TAB PO SCH (08:26)
[2018-10-18] MEDS: DUTASTERIDE 0.5 MG CAPSULE PO SCH (08:26)
[2018-10-18] MEDS: DICLOFENAC SOD 1% GEL 100 GM TUBE EXT SCH ×4 (08:26→20:22)
[2018-10-18] MEDS: POTASSIUM CHLORIDE 10 MEQ TABCR PO SCH (08:26)
[2018-10-18] MEDS: AMLODIPINE BESYLATE 5 MG TAB PO SCH (08:26)
[2018-10-18] MEDS: THIAMINE HCL 100 MG TAB PO SCH (08:26)
[2018-10-18] MEDS: CARVEDILOL 25 MG TAB PO SCH ×2 (08:26→20:21)
[2018-10-18 08:38] LABS: BUN Creatinine Ratio 27.2 (10-20); Est GFR (African American) 50.8; Est GFR (Non-African American) 43.8; Hematocrit (blood only) 25.9 % (42-52); Hemoglobin 8.2 g/dL (14.0-18.0); Mean Corpuscular Hgb Conc 31.7 g/dL (32-36); Mean Corpuscular Volume 89.3 fL (80-100); Mean Platelet Volume 11.6 fL (7.4-10.4); Platelet Count 136 K/uL (130-400); Potassium 3.7 mmol/L (3.5-5.1); RDW Coefficient of Variation 15.9 % (11.5-14.5); RDW Standard Deviation 51.7 fL (36.4-46.3); White Blood Count 3.92 K/uL (4.8-10.8)
[2018-10-18] MEDS ORDERED: DEXTROSE 5% 1,000 ML IV SCH (09:15)
--- NOTE | 2018-10-18 10:47 | Hospitalist Progress Note ---
Date of Service October 18, 2018 Assessment & Plan (1) Falls: Related to weakness from malnutrition, weight loss, dementia, UTI PT/OT recommending SNF, in agreement- pending placement at [place] [facility]. Also with TSH elevated, normal FT4 but could be related--> started levothyroxine 25 micrograms daily -Repeat TSH in 4 to 6 weeks -Given moderate malnutrition, thiamine and multivitamin initiated B12 level is normal (2) Generalized weakness: As above, related to weight loss, dementia, malnutrition, and UTI, hypothryoidism PT/OT recommending SNF as above- pending placement at [facility] in [place]. (3) Weight loss: Most likely secondary to dementia. Appetite improving while inpatient. -Continue remeron (4) Anemia: Hb 8.2, normocytic - patient asymptomatic 05/2018 was noted to be 11 No hx of colonoscopy. Can be done as an outpatient. Hemoccult pending this admission, but was negative in 01/2018. Fe studies consistent with anemia of chronic disease B12 normal, however folate is borderline low at 5 TSH is elevated--> started LT4 here -likely anemia of chronic renal disease and mild folate deficiency -Continue folic acid 1 mg p.o. once daily (5) Ulceration: Unstageable pressure ulcer of the left buttock. Wound care consulted Wound will be dressed with Santyl and an optifoam daily. Wound culture grew coag negative staph Low air loss mattress ordered. Pt should f/u with the wound clinic as an outpatient in 1 week. (6) UTI (urinary tract infection): UA abnormal, has long h/o recurrent UTIs, BPH Sees Urology Dr. Madera and question of compliance with BPH meds, was recently started on dutasteride -continue Flomax as well Prior cx from 12/2017 was E. coli resistant to bactrim Urine culture here is again E. coli resistant to Bactrim Received 2 doses of IV ceftriaxone and will then converted to p.o. 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 -Repeat CBC in AM. -Continue Coumadin at home dosing of 4 mg on Wednesday and 2 mg on Wednesday - will need to be monitored more often as discharge due to concurrent administration with Cipro (8) Biventricular ICD (implantable cardioverter-defibrillator) in place: placed for syncope in setting of severe systolic CHF with EF now improved as of 2017 to 40-45% but previously much lower Follows with Dr. Wade. Pt was to see Dr. Wade tomorrow for f/u. - consulted cardiology for pacer interrogation -Was pacing appropriately when on telemetry (9) H/O: stroke: L sided weakness residual CVA was 12 years ago -is on coumadin for Afib (10) HTN (hypertension): Home meds were initially being held due to recent hypoTN, likely related to weight loss Monitor but given systolic CHF, have since restarted Coreg and ACEi, amlodipine -Continue to hold home hydralazine and likely will not need to restart this, blood pressures stable (11) Obstructive sleep apnea: -continue CPAP nightly (12) CHF (congestive heart failure), NYHA class II: Chronic systolic (congestive) heart failure With EF as low as <30% requiring ICD placement in approx 2013, now EF improved in 2017 to 40-45% with medical management With lower extremity swelling in the last week, but overall body weight is significantly decreased from previous, could be from hypoalbuminemia Edema continues to improve each day -continue lasix -Continue Coreg, lotrel -Continue low Na+ diet -follow daily weights (13) CKD (chronic kidney disease): Chronic kidney disease, stage 3 (moderate) at Baseline cr which is is 1.5-1.9 -Avoid nephrotoxins -Renally dose medications when appropriate (14) Hypokalemia: continue home med of KCl 10 mEq daily (15) BPH (benign prostatic hyperplasia): continue home meds of Flomax and dutasteride -Follows with urology and has been suggested to get TURP in the past (16) Moderate malnutrition: Family reporting a nearly 40 lbs weight loss over the past half-year, BMI 19.4 -dietary consult appreciated -continue daily weights, Boost, Remeron -Continue thiamine, multivitamin, folic acid (17) Dementia: -progressive, not eating much at home, weight loss, multiple falls -continue donepezil follows with Dr. Plata of Neuro -supportive care -Checked vitamin B1 level was low at 6 - continue thiamine supplementation (18) Knee pain: bilateral knee stiffness, but denies pain -Continue Voltaren gel (19) Pancytopenia: Seems chronic for several years but slightly worse and could be due to nutritional deficiencies -No evidence of bleeding -Could have low-level underlying myelodysplasia -Hematology referral as an outpatient - patient currently asymptomatic from anemia - recheck am (20) Hypernatremia: Mild - Na 149. Encourage po fluids, recheck tomorrow. Will have to be careful with fluid balance due to CHF (21) DVT prophylaxis: SCDs, [facility] Subjective Mr. Tovar has no complaints today. He did have some questions about what to expect about his recovery. Review of Systems Review of Systems: All systems reviewed & are unremarkable except as noted in HPI & below Physical Exam Physical Exam: General: no distress Eyes: normal inspection, PERLL Respiratory: chest non tender, clear to auscultation, normal breath sounds, no respiratory distress, no accessory muscle use Cardiac: regular rate and rhythm, no rub or gallop, no murmur, no edema, no jvd GI/: active bowel sounds, no abd pain or tenderness, soft, non distended Extremities: normal range of motion, normal strength, non tender Neuro/Psych: alert and oriented x 3, normal mood and affect Skin: normal color, dry Results & Data Vital Signs (Past 12 Hours) Vital Signs Temp Pulse Resp BP Pulse Ox 10/18/18 07:17 36.3 C L 74 20 120/67 99 10/17/18 22:56 36.8 C 84 18 133/73 98 PG Care Time/CCT Total # of Minutes Spent Total Time Spent with Patient: Total time spent is greater than 50% in coordination of care (as documented) at patient's floor/unit and/or counseling patient: (1) Falls Encounter type: initial encounter Qualified Code(s): W19.XXXA - Unspecified fall, initial encounter (2) Anemia Anemia type: unspecified type Qualified Code(s): D64.9 - Anemia, unspecified (3) CKD (chronic kidney disease) Chronic kidney disease stage: stage 3 (moderate) Qualified Code(s): N18.3 - Chronic kidney disease, stage 3 (moderate)
[2018-10-18] MEDS: WARFARIN SOD 2 MG TAB PO SCH (15:57)
[2018-10-18] MEDS: TAMSULOSIN HCL 0.4 MG CAP PO SCH (20:20)
[2018-10-18] MEDS: DONEPEZIL HCL 5 MG TAB PO SCH (20:20)
[2018-10-18] MEDS: MIRTAZAPINE TAB 15 MG TAB PO SCH (20:21)
[2018-10-19 04:01] LABS: 18KDIGG Band NONREACTIVE (NONREACTIVE); 23KDIGG Band NONREACTIVE (NONREACTIVE); 23KDIGM Band DNR (NONREACTIVE); 28KDIGG Band NONREACTIVE (NONREACTIVE); 30KDIGG Band NONREACTIVE (NONREACTIVE); 39KDIGG Band NONREACTIVE (NONREACTIVE); 39KDIGM Band DNR (NONREACTIVE); 41KDIGG Band REACTIVE (NONREACTIVE); 41KDIGM Band DNR (NONREACTIVE); 45KDIGG Band NONREACTIVE (NONREACTIVE); 58KDIGG Band NONREACTIVE (NONREACTIVE); 66KDIGG Band REACTIVE (NONREACTIVE); 93KDIGG Band NONREACTIVE (NONREACTIVE); Lyme Antibodies, WB IgG NEGATIVE (NEGATIVE)
[2018-10-19] MEDS: LEVOTHYROXINE SODIUM 25 MCG TABLET PO SCH (06:19)
[2018-10-19 07:31] LABS: Hematocrit (blood only) 25.7 % (42-52); Hemoglobin 8.1 g/dL (14.0-18.0); Mean Corpuscular Hgb Conc 31.5 g/dL (32-36); Mean Corpuscular Volume 88.3 fL (80-100); Mean Platelet Volume 12.1 fL (7.4-10.4); Platelet Count 131 K/uL (130-400); RDW Coefficient of Variation 16.1 % (11.5-14.5); RDW Standard Deviation 51.5 fL (36.4-46.3); Red Blood Count 2.91 M/uL (4.7-6.1); White Blood Count 4.61 K/uL (4.8-10.8)
[2018-10-19 07:48] LABS: INR 2.2 (0.9-1.1); Prothrombin Time 20.9 Seconds (9.0-12.0)
[2018-10-19] MEDS: THIAMINE HCL 100 MG TAB PO SCH (07:51)
[2018-10-19] MEDS: ALLOPURINOL 300 MG TAB PO SCH (07:51)
[2018-10-19] MEDS: AMLODIPINE BESYLATE 5 MG TAB PO SCH (07:51)
[2018-10-19] MEDS: ENALAPRIL MALEATE 10 MG TAB PO SCH (07:51)
[2018-10-19] MEDS: FOLIC ACID 1 MG TAB PO SCH (07:52)
[2018-10-19] MEDS: CARVEDILOL 25 MG TAB PO SCH ×2 (07:52→20:14)
[2018-10-19] MEDS: CEROVITE ADV FORMULA TAB PO SCH (07:52)
[2018-10-19] MEDS: CIPROFLOXACIN 500 MG TAB PO SCH ×2 (07:52→20:11)
[2018-10-19] MEDS: POTASSIUM CHLORIDE 10 MEQ TABCR PO SCH (07:52)
[2018-10-19] MEDS: DUTASTERIDE 0.5 MG CAPSULE PO SCH (07:52)
[2018-10-19] MEDS: FUROSEMIDE 40 MG TAB PO SCH (07:52)
[2018-10-19] MEDS: COLLAGENASE OINT 30 GM TUBE EXT SCH (07:53)
[2018-10-19] MEDS: DICLOFENAC SOD 1% GEL 100 GM TUBE EXT SCH ×4 (07:53→20:15)
[2018-10-19 08:00] LABS: Creatinine Clr Calc Pharmacy 39.9 ml/min; Est GFR (African American) 45.8; Est GFR (Non-African American) 39.5; Potassium 3.7 mmol/L (3.5-5.1)
--- NOTE | 2018-10-19 11:49 | Hospitalist Progress Note ---
Date of Service October 19, 2018 Assessment & Plan (1) Falls: Related to weakness from malnutrition, weight loss, dementia, UTI PT/OT recommending SNF, in agreement- pending placement at [place] [facility]. Also with TSH elevated, normal FT4 but could be related--> started levothyroxine 25 micrograms daily -Repeat TSH in 4 to 6 weeks -Given moderate malnutrition, thiamine and multivitamin initiated B12 level is normal (2) Generalized weakness: As above, related to weight loss, dementia, malnutrition, and UTI, hypothryoidism PT/OT recommending SNF as above- pending placement at [facility] in [place]. (3) Weight loss: Most likely secondary to dementia. Appetite improving while inpatient. -Continue remeron (4) Anemia: Hb 8.1, normocytic - patient asymptomatic 05/2018 was noted to be 11 No hx of colonoscopy. Can be done as an outpatient. Hemoccult pending this admission, but was negative in 01/2018. Fe studies consistent with anemia of chronic disease B12 normal, however folate is borderline low at 5 TSH is elevated--> started LT4 here -likely anemia of chronic renal disease and mild folate deficiency -Continue folic acid 1 mg p.o. once daily (5) Ulceration: Unstageable pressure ulcer of the left buttock. Wound care consulted Wound will be dressed with Santyl and an optifoam daily. Wound culture grew coag negative staph Low air loss mattress ordered. Pt should f/u with the wound clinic as an outpatient in 1 week. (6) UTI (urinary tract infection): UA abnormal, has long h/o recurrent UTIs, BPH Sees Urology Dr. Madera and question of compliance with BPH meds, was recently started on dutasteride -continue Flomax as well Prior cx from 12/2017 was E. coli resistant to bactrim Urine culture here is again E. coli resistant to Bactrim Received 2 doses of IV ceftriaxone and will then converted to p.o. 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 -Repeat CBC in AM. -Continue Coumadin at home dosing of 4 mg on Wednesday and 2 mg on Wednesday - will need to be monitored more often as discharge due to concurrent administration with Cipro (8) Biventricular ICD (implantable cardioverter-defibrillator) in place: placed for syncope in setting of severe systolic CHF with EF now improved as of 2017 to 40-45% but previously much lower Follows with Dr. Wade. Pt was to see Dr. Wade tomorrow for f/u. - consulted cardiology for pacer interrogation -Was pacing appropriately when on telemetry (9) H/O: stroke: L sided weakness residual CVA was 12 years ago -is on coumadin for Afib (10) HTN (hypertension): Home meds were initially being held due to recent hypoTN, likely related to weight loss Monitor but given systolic CHF, have since restarted Coreg and ACEi, amlodipine -Continue to hold home hydralazine and likely will not need to restart this, blood pressures stable (11) Obstructive sleep apnea: -continue CPAP nightly (12) CHF (congestive heart failure), NYHA class II: Chronic systolic (congestive) heart failure With EF as low as <30% requiring ICD placement in approx 2013, now EF improved in 2017 to 40-45% with medical management With lower extremity swelling in the last week, but overall body weight is significantly decreased from previous, could be from hypoalbuminemia Edema continues to improve each day -continue lasix -Continue Coreg, lotrel -Continue low Na+ diet -follow daily weights (13) CKD (chronic kidney disease): Chronic kidney disease, stage 3 (moderate) at Baseline cr which is is 1.5-1.9 -Avoid nephrotoxins -Renally dose medications when appropriate (14) Hypokalemia: continue home med of KCl 10 mEq daily (15) BPH (benign prostatic hyperplasia): continue home meds of Flomax and dutasteride -Follows with urology and has been suggested to get TURP in the past (16) Moderate malnutrition: Family reporting a nearly 40 lbs weight loss over the past half-year, BMI 19.4 -dietary consult appreciated -continue daily weights, Boost, Remeron -Continue thiamine, multivitamin, folic acid (17) Dementia: -progressive, not eating much at home, weight loss, multiple falls -continue donepezil follows with Dr. Plata of Neuro -supportive care -Checked vitamin B1 level was low at 6 - continue thiamine supplementation (18) Knee pain: bilateral knee stiffness, but denies pain -Continue Voltaren gel (19) Pancytopenia: Seems chronic for several years but slightly worse and could be due to nutritional deficiencies -No evidence of bleeding -Could have low-level underlying myelodysplasia -Hematology referral as an outpatient - patient currently asymptomatic from anemia - recheck am (20) Hypernatremia: Mild - Na peaked at 149, trending down. Encourage po fluids, will have to be careful with fluid balance due to CHF (21) DVT prophylaxis: SCDs, [facility] Subjective Feeling well, no complaints, at bedside Review of Systems 2 Review of Systems: All systems reviewed & are unremarkable except as noted in HPI & below Physical Exam Physical Exam: General: no distress Eyes: normal inspection, PERLL Respiratory: chest non tender, clear to auscultation, normal breath sounds, no respiratory distress, no accessory muscle use Cardiac: regular rate and rhythm, no rub or gallop, no murmur, no edema, no jvd GI/: active bowel sounds, no abd pain or tenderness, soft, non distended Extremities: normal range of motion, normal strength, non tender Neuro/Psych: alert and oriented x 3 with some confusion, normal mood and affect Skin: normal color, dry Results & Data Vital Signs (Past 12 Hours) Vital Signs Temp Pulse Resp BP Pulse Ox 10/19/18 07:03 36.9 C 61 16 153/84 H 98 PG Care Time/CCT Total # of Minutes Spent Total Time Spent with Patient: Total time spent is greater than 50% in coordination of care (as documented) at patient's floor/unit and/or counseling patient: (1) Anemia Anemia type: unspecified type Qualified Code(s): D64.9 - Anemia, unspecified (2) CKD (chronic kidney disease) Chronic kidney disease stage: stage 3 (moderate) Qualified Code(s): N18.3 - Chronic kidney disease, stage 3 (moderate) (3) Falls Encounter type: initial encounter Qualified Code(s): W19.XXXA - Unspecified fall, initial encounter
[2018-10-19] MEDS: WARFARIN SOD 4 MG TAB PO SCH (16:48)
[2018-10-19] MEDS: MIRTAZAPINE TAB 15 MG TAB PO SCH (20:11)
[2018-10-19] MEDS: DONEPEZIL HCL 5 MG TAB PO SCH (20:15)
[2018-10-19] MEDS: TAMSULOSIN HCL 0.4 MG CAP PO SCH (20:15)
[2018-10-20] MEDS: LEVOTHYROXINE SODIUM 25 MCG TABLET PO SCH (05:57)
[2018-10-20 06:32] LABS: Hematocrit (blood only) 25.6 % (42-52); Hemoglobin 7.9 g/dL (14.0-18.0); Mean Corpuscular Hgb Conc 30.9 g/dL (32-36); Mean Corpuscular Volume 88.3 fL (80-100); Mean Platelet Volume 12.1 fL (7.4-10.4); Platelet Count 138 K/uL (130-400); RDW Standard Deviation 52.2 fL (36.4-46.3); White Blood Count 4.01 K/uL (4.8-10.8)
[2018-10-20 06:46] LABS: INR 2.2 (0.9-1.1); Prothrombin Time 21.2 Seconds (9.0-12.0)
[2018-10-20 07:04] LABS: BUN Creatinine Ratio 28.5 (10-20); Calcium 8.6 mg/dl (8.5-10.1); Creatinine Clr Calc Pharmacy 41.9 ml/min; Est GFR (African American) 48.4; Est GFR (Non-African American) 41.7; Potassium 3.6 mmol/L (3.5-5.1)
[2018-10-20] MEDS ORDERED: POLYETHYLENE (MIRALAX) 17 GM PACK PO ONE (08:03)
[2018-10-20] MEDS: FOLIC ACID 1 MG TAB PO SCH (08:39)
[2018-10-20] MEDS: DICLOFENAC SOD 1% GEL 100 GM TUBE EXT SCH ×4 (08:39→21:04)
[2018-10-20] MEDS: ALLOPURINOL 300 MG TAB PO SCH (08:39)
[2018-10-20] MEDS: THIAMINE HCL 100 MG TAB PO SCH (08:39)
[2018-10-20] MEDS: COLLAGENASE OINT 30 GM TUBE EXT SCH (08:39)
[2018-10-20] MEDS: POTASSIUM CHLORIDE 10 MEQ TABCR PO SCH (08:40)
[2018-10-20] MEDS: CARVEDILOL 25 MG TAB PO SCH ×2 (08:40→21:04)
[2018-10-20] MEDS: CIPROFLOXACIN 500 MG TAB PO SCH ×2 (08:40→21:03)
[2018-10-20] MEDS: CEROVITE ADV FORMULA TAB PO SCH (08:40)
[2018-10-20] MEDS: AMLODIPINE BESYLATE 5 MG TAB PO SCH (08:40)
[2018-10-20] MEDS: FUROSEMIDE 40 MG TAB PO SCH (08:40)
[2018-10-20] MEDS: ENALAPRIL MALEATE 10 MG TAB PO SCH (08:40)
[2018-10-20] MEDS: DUTASTERIDE 0.5 MG CAPSULE PO SCH (08:41)
--- NOTE | 2018-10-20 08:42 | Cardiology Progress Note ---
Date of Service October 20, 2018 Assessment & Plan (1) Falls: It sounds as though his falls are from losing his balance, he did have an arrhythmia however it was in August and he has had none since, therefore we cannot attribute most of his falling to an arrhythmia. (2) Biventricular ICD (implantable cardioverter-defibrillator) in place: His ICD is functioning well on interrogation. He did have an episode of ventricular tachycardia appropriate treated by the device several months ago. (3) Dementia: He seems less confused today on my evaluation, in the past he has been quite alert. Some of that may be from a somewhat prolonged hospitalization or change in baseline. I have not seen him for 6 months in the office. Subjective He has no complaints, he still seems to be a little bit confused but he recalls my visit several days ago and knows who I am and seems to be less confused than several days ago. Physical Exam Physical Exam: Constitutional: Alert, cooperative and in no distress. Somewhat confused but conversational and he seems improved from several days ago. HEENT: Unremarkable Neck: No jugular venous distention, carotid pulses are normal and equal bilaterally without bruits. Pulmonary: Decreased breath sounds throughout. Cardiac: Regular rhythm with no murmur, gallop or rub. Abdomen: Soft, nontender with normal bowel sounds. Extremities: No edema. Distal pulses intact. Neurologic: No focal findings. Gait is steady. Skin: No rash, ecchymoses or petechiae. Results & Data Vital Signs (Past 12 Hours) Vital Signs Temp Pulse Resp BP BP Pulse Ox 10/20/18 07:09 36.3 C L 68 18 124/67 97 10/19/18 23:28 36.7 C 78 16 144/65 H 98 (1) Falls Encounter type: initial encounter Qualified Code(s): W19.XXXA - Unspecified fall, initial encounter
[2018-10-20] MEDS: WARFARIN SOD 2 MG TAB PO SCH (16:20)
--- NOTE | 2018-10-20 16:22 | Hospitalist Progress Note ---
Date of Service October 20, 2018 Assessment & Plan (1) Falls: Related to weakness from malnutrition, weight loss, dementia, UTI PT/OT recommending SNF, in agreement- pending placement at [place] [facility]. Also with TSH elevated, normal FT4 but could be related--> started levothyroxine 25 micrograms daily -Repeat TSH in 4 to 6 weeks -Given moderate malnutrition, thiamine and multivitamin initiated B12 level is normal (2) Generalized weakness: As above, related to weight loss, dementia, malnutrition, and UTI, hypothyroidism PT/OT recommending SNF as above- pending placement at [facility] in [place]. (3) Weight loss: Most likely secondary to dementia. Appetite improving while inpatient. -Continue remeron (4) Anemia: Hb 7.9, normocytic - patient asymptomatic 05/2018 was noted to be 11 No hx of colonoscopy. Can be done as an outpatient. Hemoccult pending this admission, but was negative in 01/2018. Fe studies consistent with anemia of chronic disease B12 normal, however folate is borderline low at 5 TSH is elevated--> started LT4 here -likely anemia of chronic renal disease and mild folate deficiency -Continue folic acid 1 mg p.o. once daily (5) Ulceration: Unstageable pressure ulcer of the left buttock. Wound care consulted Wound will be dressed with Santyl and an optifoam daily. Wound culture grew coag negative staph Low air loss mattress ordered. Pt should f/u with the wound clinic as an outpatient in 1 week. (6) UTI (urinary tract infection): UA abnormal, has long h/o recurrent UTIs, BPH Sees Urology Dr. Madera and question of compliance with BPH meds, was recently started on dutasteride -continue Flomax as well Prior cx from 12/2017 was E. coli resistant to bactrim Urine culture here is again E. coli resistant to Bactrim Received 2 doses of IV ceftriaxone and will then converted to p.o. 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 -Repeat CBC in AM. -Continue Coumadin at home dosing of 4 mg on Wednesday and 2 mg on Wednesday - will need to be monitored more often as discharge due to concurrent administration with Cipro (8) Biventricular ICD (implantable cardioverter-defibrillator) in place: placed for syncope in setting of severe systolic CHF with EF now improved as of 2017 to 40-45% but previously much lower Follows with Dr. Wade. Pt was to see Dr. Wade tomorrow for f/u. - consulted cardiology for pacer interrogation -Was pacing appropriately when on telemetry (9) H/O: stroke: L sided weakness residual CVA was 12 years ago -is on coumadin for Afib (10) HTN (hypertension): Home meds were initially being held due to recent hypoTN, likely related to weight loss Monitor but given systolic CHF, have since restarted Coreg and ACEi, amlodipine -Continue to hold home hydralazine and likely will not need to restart this, blood pressures stable (11) Obstructive sleep apnea: -continue CPAP nightly (12) CHF (congestive heart failure), NYHA class II: Chronic systolic (congestive) heart failure With EF as low as <30% requiring ICD placement in approx 2013, now EF improved in 2017 to 40-45% with medical management With lower extremity swelling in the last week, but overall body weight is significantly decreased from previous, could be from hypoalbuminemia Edema largely resolved -continue lasix -Continue Coreg, lotrel -Continue low Na+ diet -follow daily weights (13) CKD (chronic kidney disease): Chronic kidney disease, stage 3 (moderate) at Baseline cr which is is 1.5-1.9 -Avoid nephrotoxins -Renally dose medications when appropriate (14) Hypokalemia: continue home med of KCl 10 mEq daily (15) BPH (benign prostatic hyperplasia): continue home meds of Flomax and dutasteride -Follows with urology and has been suggested to get TURP in the past (16) Moderate malnutrition: Family reporting a nearly 40 lbs weight loss over the past half-year, BMI 19.4 -dietary consult appreciated -continue daily weights, Boost, Remeron -Continue thiamine, multivitamin, folic acid (17) Dementia: -progressive, not eating much at home, weight loss, multiple falls -continue donepezil follows with Dr. Plata of Neuro -supportive care -Checked vitamin B1 level was low at 6 - continue thiamine supplementation (18) Knee pain: bilateral knee stiffness, but denies pain -Continue Voltaren gel (19) Pancytopenia: Seems chronic for several years but slightly worse and could be due to nutritional deficiencies -No evidence of bleeding -Could have low-level underlying myelodysplasia -Hematology referral as an outpatient - patient currently asymptomatic from anemia - recheck am (20) Hypernatremia: Mild - Na 149. Encourage po fluids, will have to be careful with fluid balance due to CHF (21) DVT prophylaxis: SCDs, [facility] Subjective Mr. Tovar has no complaints. Sitting up, eating breakfast at the time of my assessment. Review of Systems Review of Systems: All systems reviewed & are unremarkable except as noted in HPI & below Physical Exam Physical Exam: General: no distress Eyes: normal inspection, PERLL Respiratory: chest non tender, clear to auscultation, normal breath sounds, no respiratory distress, no accessory muscle use Cardiac: regular rate and rhythm, no rub or gallop, no murmur, no edema, no jvd GI/: active bowel sounds, no abd pain or tenderness, soft, non distended Extremities: normal range of motion, normal strength, non tender Neuro/Psych: alert and oriented x 3, normal mood and affect Skin: normal color, dry Results & Data Vital Signs (Past 12 Hours) Vital Signs Temp Pulse Resp BP BP Pulse Ox 10/20/18 15:30 36.6 C 60 18 139/83 96 10/20/18 07:09 36.3 C L 68 18 124/67 97 PG Care Time/CCT Total # of Minutes Spent Total Time Spent with Patient: Total time spent is greater than 50% in coordination of care (as documented) at patient's floor/unit and/or counseling patient: (1) Falls Encounter type: initial encounter Qualified Code(s): W19.XXXA - Unspecified fall, initial encounter (2) Anemia Anemia type: unspecified type Qualified Code(s): D64.9 - Anemia, unspecified (3) CKD (chronic kidney disease) Chronic kidney disease stage: stage 3 (moderate) Qualified Code(s): N18.3 - Chronic kidney disease, stage 3 (moderate)
[2018-10-20] MEDS: MIRTAZAPINE TAB 15 MG TAB PO SCH (21:03)
[2018-10-20] MEDS: TAMSULOSIN HCL 0.4 MG CAP PO SCH (21:03)
[2018-10-20] MEDS: DONEPEZIL HCL 5 MG TAB PO SCH (21:05)
[2018-10-21] MEDS: LEVOTHYROXINE SODIUM 25 MCG TABLET PO SCH (06:11)
[2018-10-21 07:37] LABS: Hematocrit (blood only) 26.2 % (42-52); Hemoglobin 8.3 g/dL (14.0-18.0); Mean Corpuscular Hgb Conc 31.7 g/dL (32-36); Mean Corpuscular Volume 88.2 fL (80-100); Mean Platelet Volume 13.3 fL (7.4-10.4); Platelet Count 164 K/uL (130-400); RDW Coefficient of Variation 16.1 % (11.5-14.5); RDW Standard Deviation 52.2 fL (36.4-46.3); Red Blood Count 2.97 M/uL (4.7-6.1); White Blood Count 4.38 K/uL (4.8-10.8)
[2018-10-21 07:46] LABS: INR 2.1 (0.9-1.1); Prothrombin Time 20.5 Seconds (9.0-12.0)
[2018-10-21 08:07] LABS: BUN Creatinine Ratio 27.6 (10-20); Calcium 8.9 mg/dl (8.5-10.1); Est GFR (African American) 48.8; Est GFR (Non-African American) 42.1; Potassium 3.7 mmol/L (3.5-5.1)
[2018-10-21] MEDS ORDERED: BISACODYL 10 MG SUPP PR PRN (08:12)
[2018-10-21] MEDS ORDERED: POLYETHYLENE (MIRALAX) 17 GM PACK PO ONE (08:13)
[2018-10-21] MEDS: COLLAGENASE OINT 30 GM TUBE EXT SCH (09:16)
[2018-10-21] MEDS: DICLOFENAC SOD 1% GEL 100 GM TUBE EXT SCH ×4 (09:16→22:15)
[2018-10-21] MEDS: FUROSEMIDE 40 MG TAB PO SCH (09:17)
[2018-10-21] MEDS: CIPROFLOXACIN 500 MG TAB PO SCH ×2 (09:17→22:12)
[2018-10-21] MEDS: ENALAPRIL MALEATE 10 MG TAB PO SCH (09:17)
[2018-10-21] MEDS: POTASSIUM CHLORIDE 10 MEQ TABCR PO SCH (09:17)
[2018-10-21] MEDS: ALLOPURINOL 300 MG TAB PO SCH (09:17)
[2018-10-21] MEDS: THIAMINE HCL 100 MG TAB PO SCH (09:17)
[2018-10-21] MEDS: CARVEDILOL 25 MG TAB PO SCH ×2 (09:17→22:14)
[2018-10-21] MEDS: CEROVITE ADV FORMULA TAB PO SCH (09:17)
[2018-10-21] MEDS: AMLODIPINE BESYLATE 5 MG TAB PO SCH (09:17)
[2018-10-21] MEDS: DUTASTERIDE 0.5 MG CAPSULE PO SCH (09:18)
[2018-10-21] MEDS: FOLIC ACID 1 MG TAB PO SCH (09:18)
--- NOTE | 2018-10-21 12:13 | Hospitalist Progress Note ---
Date of Service October 21, 2018 Assessment & Plan (1) Falls: Related to weakness from malnutrition, weight loss, dementia, UTI PT/OT recommending SNF, in agreement- pending placement at [place] [facility]. Also with TSH elevated, normal FT4 but could be related--> started levothyroxine 25 micrograms daily -Repeat TSH in 4 to 6 weeks -Given moderate malnutrition, thiamine and multivitamin initiated B12 level is normal (2) Generalized weakness: As above, related to weight loss, dementia, malnutrition, and UTI, hypothyroidism PT/OT recommending SNF as above- pending placement at [facility] in [place]. (3) Weight loss: Most likely secondary to dementia. Appetite improving while inpatient. -Continue remeron (4) Anemia: Hb stable around 8, normocytic - patient asymptomatic 05/2018 was noted to be 11 No hx of colonoscopy. Can be done as an outpatient. Hemoccult pending this admission, but was negative in 01/2018. Fe studies consistent with anemia of chronic disease B12 normal, however folate is borderline low at 5 TSH is elevated--> started LT4 here -likely anemia of chronic renal disease and mild folate deficiency -Continue folic acid 1 mg p.o. once daily (5) Ulceration: Unstageable pressure ulcer of the left buttock. Wound care consulted Wound will be dressed with Santyl and an optifoam daily. Wound culture grew coag negative staph Low air loss mattress ordered. Pt should f/u with the wound clinic as an outpatient next week. (6) UTI (urinary tract infection): UA abnormal, has long h/o recurrent UTIs, BPH Sees Urology Dr. Madera and question of compliance with BPH meds, was recently started on dutasteride -continue Flomax as well Prior cx from 12/2017 was E. coli resistant to bactrim Urine culture here is again E. coli resistant to Bactrim Received 2 doses of IV ceftriaxone and will then converted to p.o. 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 -Continue Coumadin at home dosing of 4 mg on Wednesday and 2 mg on Wednesday - will need to be monitored more often as discharge due to concurrent administration with Cipro (8) Biventricular ICD (implantable cardioverter-defibrillator) in place: placed for syncope in setting of severe systolic CHF with EF now improved as of 2017 to 40-45% but previously much lower Follows with Dr. Wade. - consulted cardiology for pacer interrogation -Was pacing appropriately when on telemetry (9) H/O: stroke: L sided weakness residual CVA was 12 years ago -is on coumadin for Afib (10) HTN (hypertension): Home meds were initially being held due to recent hypoTN, likely related to weight loss Continue Coreg and ACEi, amlodipine -Continue to hold home hydralazine and likely will not need to restart this, blood pressures stable (11) Obstructive sleep apnea: -continue CPAP nightly (12) CHF (congestive heart failure), NYHA class II: Chronic systolic (congestive) heart failure With EF as low as <30% requiring ICD placement in approx 2013, now EF improved in 2017 to 40-45% with medical management -continue lasix -Continue Coreg, lotrel -Continue low Na+ diet -follow daily weights (13) CKD (chronic kidney disease): Chronic kidney disease, stage 3 (moderate) at Baseline cr which is is 1.5-1.9 -Avoid nephrotoxins -Renally dose medications when appropriate (14) Hypokalemia: continue home med of KCl 10 mEq daily (15) BPH (benign prostatic hyperplasia): continue home meds of Flomax and dutasteride -Follows with urology and has been suggested to get TURP in the past (16) Moderate malnutrition: Family reporting a nearly 40 lbs weight loss over the past half-year, BMI 19.4 -dietary consult appreciated -continue daily weights, Boost, Remeron -Continue thiamine, multivitamin, folic acid (17) Dementia: -progressive, not eating much at home, weight loss, multiple falls -continue donepezil follows with Dr. Plata of Neuro -supportive care -Checked vitamin B1 level was low at 6 - continue thiamine supplementation (18) Knee pain: bilateral knee stiffness, but denies pain -Continue Voltaren gel (19) Pancytopenia: Seems chronic for several years but slightly worse and could be due to nutritional deficiencies -No evidence of bleeding -Could have low-level underlying myelodysplasia -Hematology referral as an outpatient - patient currently asymptomatic from anemia - recheck am (20) DVT prophylaxis: SCDs, [facility] Subjective Mr. Tovar was up eating breakfast with his at bedside when I saw him this morning. He has no complaints. Review of Systems Review of Systems: All systems reviewed & are unremarkable except as noted in HPI & below Physical Exam Physical Exam: General: no distress Eyes: normal inspection, PERLL Respiratory: chest non tender, clear to auscultation, normal breath sounds, no respiratory distress, no accessory muscle use Cardiac: regular rate and rhythm, no rub or gallop, no murmur, no edema, no jvd GI/: active bowel sounds, no abd pain or tenderness, soft, non distended Extremities: normal range of motion, normal strength, non tender Neuro/Psych: alert and oriented x 3, normal mood and affect Skin: normal color, dry Results & Data Vital Signs (Past 12 Hours) Vital Signs Temp Pulse Resp BP Pulse Ox 10/21/18 07:13 36.5 C 74 20 121/66 97 PG Care Time/CCT Total # of Minutes Spent Total Time Spent with Patient: Total time spent is greater than 50% in coordination of care (as documented) at patient's floor/unit and/or counseling patient: (1) Falls Encounter type: initial encounter Qualified Code(s): W19.XXXA - Unspecified fall, initial encounter (2) Anemia Anemia type: unspecified type Qualified Code(s): D64.9 - Anemia, unspecified (3) CKD (chronic kidney disease) Chronic kidney disease stage: stage 3 (moderate) Qualified Code(s): N18.3 - Chronic kidney disease, stage 3 (moderate)
[2018-10-21] MEDS: WARFARIN SOD 4 MG TAB PO SCH (16:11)
[2018-10-21] MEDS ORDERED: LORazepam 1 MG TAB PO STA (17:21)
[2018-10-21] MEDS: TAMSULOSIN HCL 0.4 MG CAP PO SCH (22:13)
[2018-10-21] MEDS: DONEPEZIL HCL 5 MG TAB PO SCH (22:13)
[2018-10-21] MEDS: MIRTAZAPINE TAB 15 MG TAB PO SCH (22:14)
[2018-10-22] MEDS: LEVOTHYROXINE SODIUM 25 MCG TABLET PO SCH (06:03)
[2018-10-22 07:12] LABS: Hematocrit (blood only) 25.2 % (42-52); Hemoglobin 7.8 g/dL (14.0-18.0); Mean Corpuscular Volume 88.1 fL (80-100); Platelet Count 140 K/uL (130-400); Red Blood Count 2.86 M/uL (4.7-6.1); White Blood Count 4.09 K/uL (4.8-10.8)
[2018-10-22 07:16] LABS: INR 2.9 (0.9-1.1); Prothrombin Time 27.9 Seconds (9.0-12.0)
[2018-10-22] MEDS: COLLAGENASE OINT 30 GM TUBE EXT SCH (07:44)
[2018-10-22] MEDS: CARVEDILOL 25 MG TAB PO SCH ×2 (07:45→20:04)
[2018-10-22] MEDS: ENALAPRIL MALEATE 10 MG TAB PO SCH (07:46)
[2018-10-22] MEDS: THIAMINE HCL 100 MG TAB PO SCH (07:46)
[2018-10-22] MEDS: AMLODIPINE BESYLATE 5 MG TAB PO SCH (07:47)
[2018-10-22] MEDS: CEROVITE ADV FORMULA TAB PO SCH (07:47)
[2018-10-22] MEDS: ALLOPURINOL 300 MG TAB PO SCH (07:47)
[2018-10-22] MEDS: FUROSEMIDE 40 MG TAB PO SCH (07:48)
[2018-10-22] MEDS: CIPROFLOXACIN 500 MG TAB PO SCH ×2 (07:48→20:04)
[2018-10-22] MEDS: FOLIC ACID 1 MG TAB PO SCH (07:48)
[2018-10-22] MEDS: DICLOFENAC SOD 1% GEL 100 GM TUBE EXT SCH ×4 (07:49→20:04)
[2018-10-22] MEDS: POTASSIUM CHLORIDE 10 MEQ TABCR PO SCH (07:49)
[2018-10-22] MEDS: DUTASTERIDE 0.5 MG CAPSULE PO SCH (07:50)
--- NOTE | 2018-10-22 16:12 | Hospitalist Progress Note ---
Date of Service October 22, 2018 Assessment & Plan (1) Falls: Related to weakness from malnutrition, weight loss, dementia, UTI PT/OT recommending SNF, in agreement- pending placement at [place] [facility], 715 according to case management. Also with TSH elevated, normal FT4 but could be related--> started levothyroxine 25 micrograms daily -Repeat TSH in 4 to 6 weeks -Given moderate malnutrition, thiamine and multivitamin initiated B12 level is normal (2) Generalized weakness: As above, related to weight loss, dementia, malnutrition, and UTI, hypothyroidism PT/OT recommending SNF as above- pending placement at [place] [facility] in [place]. (3) Weight loss: Most likely secondary to dementia. Appetite improving while inpatient. Some minor improvement with Remeron (4) Anemia: Hb stable around 8, normocytic - patient asymptomatic 05/2018 was noted to be 11 No hx of colonoscopy. Can be done as an outpatient. Fe studies consistent with anemia of chronic disease B12 normal, however folate is borderline low at 5 TSH is elevated--> started LT4 here -likely anemia of chronic renal disease and mild folate deficiency -Continue folic acid 1 mg p.o. once daily (5) Ulceration: pressure ulcer of the left buttock. Santyl and an optifoam daily. Wound culture grew coag negative staph Low air loss mattress ordered. Patient to continue receiving care in the [place] system (6) UTI (urinary tract infection): UA abnormal, has long h/o recurrent UTIs, BPH Sees Urology Dr. Madera and question of compliance with BPH meds, was recently started on dutasteride -continue Flomax as well Prior cx from 12/2017 was E. coli resistant to bactrim Urine culture here is again E. coli resistant to Bactrim Received 2 doses of IV ceftriaxone and will then converted to p.o. 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 given that organism was likely never eradicated from 10 months ago -Follow-up with urology as an outpatient (7) Permanent atrial fibrillation: Coumadin was held for anemia x 2 days upon admission but no active blee ding at this time -INR therapeutic -Continue Coumadin at home dosing of 4 mg on Wednesday and 2 mg on Wednesday - will need to be monitored more often as discharge due to concurrent administration with Cipro (8) Biventricular ICD (implantable cardioverter-defibrillator) in place: placed for syncope in setting of severe systolic CHF with EF now improved as of 2017 to 40-45% but previously much lower Follows with Dr. Wade. - consulted cardiology for pacer interrogation -Was pacing appropriately when on telemetry (9) H/O: stroke: L sided weakness residual CVA was 12 years ago -is on coumadin for Afib (10) HTN (hypertension): Home meds were initially being held due to recent hypoTN, likely related to weight loss Continue Coreg and ACEi, amlodipine Discontinuation of hydralazine (11) Obstructive sleep apnea: -continue CPAP nightly (12) CHF (congestive heart failure), NYHA class II: Chronic systolic (congestive) heart failure With EF as low as <30% requiring ICD placement in approx 2013, now EF improved in 2017 to 40-45% with medical management -continue lasix -Continue Coreg, lotrel -Continue low Na+ diet (13) CKD (chronic kidney disease): Chronic kidney disease, stage 3 (moderate) at Baseline cr which is is 1.5-1.9 -Avoid nephrotoxins -Renally dose medications when appropriate (14) Hypokalemia: continue home med of KCl 10 mEq daily (15) BPH (benign prostatic hyperplasia): continue home meds of Flomax and dutasteride -Follows with urology and has been suggested to get TURP in the past (16) Moderate malnutrition: Family reporting a nearly 40 lbs weight loss over the past half-year, BMI 19.4 -dietary consult appreciated -continue daily weights, Boost, Remeron -Continue thiamine, multivitamin, folic acid (17) Dementia: -progressive, not eating much at home, weight loss, multiple falls -continue donepezil follows with Dr. Plata of Neuro -supportive care -Checked vitamin B1 level was low at 6 - continue thiamine supplementation (18) Knee pain: bilateral knee stiffness, but denies pain -Continue Voltaren gel (19) Pancytopenia: Seems chronic for several years but slightly worse and could be due to nutritional deficiencies -No evidence of bleeding -Could have low-level underlying myelodysplasia -Hematology referral as an outpatient - patient currently asymptomatic from anemia - recheck am (20) DVT prophylaxis: SCDs, Coumadin Dispo-DC to [place] Wednesday Subjective Patient has no complaints or problems he is patiently awaiting his transfer to the [place] home in [place] which is slated to occur on 715 Review of Systems Review of Systems: ROS: well nourished well developed. No double vision blurry vision No problems with speech or swallowing No palpitations, chest pain or pressure Baseline shortness of breath No abdominal pain nausea vomiting diarrhea changes in appetite or weight No burning urine urine frequency or changes in color No focal joint pain or muscle pain No skin rashes or oral lesions No unusual bruising or bleeding No focused back pain or numbness or loss of strength No changes in memory or confusion Physical Exam Physical Exam: The patient appeared well nourished and normally developed. Vital signs as documented. Head exam is unremarkable. normocephalic, atraumatic Neck is without jugular venous distension, thyromegaly, or lymphademopathy Lungs are with poor air movement throughout but no focal loss or wheeze Cardiac exam reveals Rhythm is regular. Systolic ejection murmurs heard Abdominal exam reveals normal bowel sounds, no masses, no organomegaly Extremities are nonedematous and both pedal pulses are present Neurologic exam is A&Ox3, no focal deficits, strength is equal bilateral Psychologically seems neither anxious or depressed Skin is warm Dry without bruises or lesions Results & Data Vital Signs (Past 12 Hours) Vital Signs Temp Pulse Resp BP Pulse Ox 10/22/18 15:50 37.0 C 75 20 144/77 H 99 10/22/18 07:44 36.5 C 63 18 158/84 H 95 PG Care Time/CCT Total # of Minutes Spent Total Time Spent with Patient: Total time spent is greater than 50% in coordination of care (as documented) at patient's floor/unit and/or counseling patient: (1) Falls Encounter type: initial encounter Qualified Code(s): W19.XXXA - Unspecified f all, initial encounter (2) Anemia Anemia type: unspecified type Qualified Code(s): D64.9 - Anemia, unspecified (3) CKD (chronic kidney disease) Chronic kidney disease stage: stage 3 (moderate) Qualified Code(s): N18.3 - Chronic kidney disease, stage 3 (moderate)
[2018-10-22] MEDS: MIRTAZAPINE TAB 15 MG TAB PO SCH (20:03)
[2018-10-22] MEDS: TAMSULOSIN HCL 0.4 MG CAP PO SCH (20:03)
[2018-10-22] MEDS: DONEPEZIL HCL 5 MG TAB PO SCH (20:03)
[2018-10-23] MEDS: LEVOTHYROXINE SODIUM 25 MCG TABLET PO SCH (06:01)
[2018-10-23 07:19] LABS: INR 2.3 (0.9-1.1); Prothrombin Time 21.9 Seconds (9.0-12.0)
--- NOTE | 2018-10-23 08:10 | Hospitalist Progress Note ---
Date of Service October 23, 2018 Assessment & Plan (1) Falls: Related to weakness from malnutrition, weight loss, dementia, UTI slowly improving PT/OT recommending SNF, in agreement- pending placement at [facility], 715 according to case management. Also with TSH elevated, normal FT4 but could be related--> started levothyroxine 25 micrograms daily -Repeat TSH in 4 to 6 weeks -Given moderate malnutrition, thiamine and multivitamin initiated B12 level is normal (2) Generalized weakness: As above, related to weight loss, dementia, malnutrition, and UTI, hypothyroidism PT/OT recommending SNF as above- pending placement at [facility] in [place]. (3) Weight loss: Most likely secondary to dementia. Appetite improving while inpatient. Some minor improvement with Remeron (4) Anemia: Hb stable around 8, normocytic - patient asymptomatic 05/2018 was noted to be 11 No hx of colonoscopy. Can be done as an outpatient. Fe studies consistent with anemia of chronic disease B12 normal, however folate is borderline low at 5 TSH is elevated--> started LT4 here -likely anemia of chronic renal disease and mild folate deficiency -Continue folic acid 1 mg p.o. once daily (5) Ulceration: pressure ulcer of the left buttock continues with local care and offloading of weight Santyl and an optifoam daily. Wound culture grew coag negative staph Low air loss mattress ordered. [facility] (6) UTI (urinary tract infection): UA abnormal, has long h/o recurrent UTIs, BPH Sees Urology Dr. Madera and question of compliance with BPH meds, was recently started on dutasteride -continue Flomax as well Prior cx from 12/2017 was E. coli resistant to bactrim Urine culture here is again E. coli resistant to Bactrim Received 2 doses of IV ceftriaxone and will then converted to p.o. 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 given that organism was likely never eradicated from 10 months ago -Follow-up with urology as an outpatient (7) Permanent atrial fibrillation: Coumadin was held for anemia x 2 days upon admission but no active bleeding at this time -INR therapeutic anemia has been stable INR is therapeutic -Continue Coumadin at home dosing of 4 mg on Wednesday and 2 mg on Wednesday - will need to be monitored more often as discharge due to concurrent administration with Cipro (8) Biventricular ICD (implantable cardioverter-defibrillator) in place: placed for syncope in setting of severe systolic CHF with EF now improved as of 2017 to 40-45% but previously much lower Follows with Dr. Wade. - consulted cardiology for pacer interrogation -Was pacing appropriately when on telemetry Recurrent episodes of syncope (9) H/O: stroke: L sided weakness residual CVA was 12 years ago -is on coumadin for Afib (10) HTN (hypertension): Home meds were initially being held due to recent hypoTN, likely related to weight loss Continue Coreg and ACEi, amlodipine Discontinuation of hydralazine does not negatively impact his blood pressure we may accept a slightly higher endpoint to avoid syncopal episodes in the future (11) Obstructive sleep apnea: -continues to tolerate CPAP nightly (12) CHF (congestive heart failure), NYHA class II: Chronic systolic (congestive) heart failure is stable at this time With EF as low as <30% requiring ICD placement in approx 2013, now EF improved in 2017 to 40-45% with medical management -continue lasix -Continue Coreg, lotrel -Continue low Na+ diet (13) CKD (chronic kidney disease): Chronic kidney disease, stage 3 (moderate) at Baseline cr which is is 1.5-1.9 -Avoid nephrotoxins -Renally dose medications when appropriate (14) Hypokalemia: continue home med of KCl 10 mEq daily (15) BPH (benign prostatic hyperplasia): continue home meds of Flomax and dutasteride -Follows with urology and has been suggested to get TURP in the past (16) Moderate malnutrition: Family reporting a nearly 40 lbs weight loss over the past half-year, BMI 19.4 -dietary consult appreciated -continue daily weights, Boost, Remeron -Continue thiamine, multivitamin, folic acid (17) Dementia: -progressive, not eating much at home, weight loss, multiple falls -continue donepezil follows with Dr. Plata of [facility] -supportive care -Checked vitamin B1 level was low at 6 - continue thiamine supplementation (18) Knee pain: bilateral knee stiffness, but denies pain -Continue Voltaren gel (19) Pancytopenia: Seems chronic for several years but slightly worse and could be due to nutritional deficiencies -No evidence of bleeding -Could have low-level underlying myelodysplasia -Hematology referral as an outpatient - patient currently asymptomatic from anemia - recheck am (20) DVT prophylaxis: SCDs, Coumadin Dispo-[facility] Subjective Patient remains pleasantly confused today is no overt problems or complaints he is bringing some story about not going to the [facility] tomorrow because he and his have plans to do something his is not pleasant to corroborate this plan will continue to believe this might be part of his confusion and continue to plan for placement of the [facility] on [facility]24 Review of Systems Review of Systems: ROS: well nourished well developed. No double vision blurry vision No problems with speech or swallowing No palpitations, chest pain or pressure No Wheezing or breathing issues No abdominal pain nausea vomiting diarrhea changes in appetite or weight No burning urine urine frequency or changes in color No focal joint pain or muscle pain No skin rashes or oral lesions No unusual bruising or bleeding No focused back pain or numbness or loss of strength No changes in memory or confusion Physical Exam Physical Exam: The patient appeared well nourished and normally developed. Vital signs as documented. Head exam is unremarkable. normocephalic, atraumatic Neck is without jugular venous distension, thyromegaly, or lymphademopathy Lungs are clear to auscultation and percussion. Cardiac exam reveals Rhythm is regular. Abdominal exam reveals normal bowel sounds, no masses, no organomegaly Extremities are nonedematous and both pedal pulses are present Neurologic exam is A&Ox2, no focal deficits, strength is equal bilateral Psychologically seems neither anxious or depressed Skin is warm Dry Results & Data Vital Signs (Past 12 Hours) Vital Signs Temp Pulse Resp BP BP Pulse Ox 10/23/18 07:26 36.6 C 73 16 165/81 H 98 10/22/18 23:32 36.5 C 67 20 150/80 H 99 PG Care Time/CCT Total # of Minutes Spent Total Time Spent with Patient: Total time spent is greater than 50% in coordination of care (as documented) at patient's floor/unit and/or counseling patient: (1) Anemia Anemia type: unspecified type Qualified Code(s): D64.9 - Anemia, unspecified (2) CKD (chronic kidney disease) Chronic kidney disease stage: stage 3 (moderate) Qualified Code(s): N18.3 - Chronic kidney disease, stage 3 (moderate) (3) Falls Encounter type: initial encounter Qualified Code(s): W19.XXXA - Unspecified fall, initial encounter
[2018-10-23] MEDS: DICLOFENAC SOD 1% GEL 100 GM TUBE EXT SCH ×4 (09:01→20:32)
[2018-10-23] MEDS: DUTASTERIDE 0.5 MG CAPSULE PO SCH (09:01)
[2018-10-23] MEDS: CIPROFLOXACIN 500 MG TAB PO SCH ×2 (09:02→20:31)
[2018-10-23] MEDS: COLLAGENASE OINT 30 GM TUBE EXT SCH (09:02)
[2018-10-23] MEDS: THIAMINE HCL 100 MG TAB PO SCH (09:02)
[2018-10-23] MEDS: POTASSIUM CHLORIDE 10 MEQ TABCR PO SCH (09:03)
[2018-10-23] MEDS: FOLIC ACID 1 MG TAB PO SCH (09:03)
[2018-10-23] MEDS: FUROSEMIDE 40 MG TAB PO SCH (09:04)
[2018-10-23] MEDS: ALLOPURINOL 300 MG TAB PO SCH (09:04)
[2018-10-23] MEDS: ENALAPRIL MALEATE 10 MG TAB PO SCH (09:04)
[2018-10-23] MEDS: CEROVITE ADV FORMULA TAB PO SCH (09:04)
[2018-10-23] MEDS: CARVEDILOL 25 MG TAB PO SCH ×2 (09:04→20:32)
[2018-10-23] MEDS: AMLODIPINE BESYLATE 5 MG TAB PO SCH (09:05)
[2018-10-23] MEDS ORDERED: WARFARIN SOD 2.5 MG TAB PO SCH (16:00)
[2018-10-23] MEDS: MIRTAZAPINE TAB 15 MG TAB PO SCH (20:31)
[2018-10-23] MEDS: TAMSULOSIN HCL 0.4 MG CAP PO SCH (20:31)
[2018-10-23] MEDS: DONEPEZIL HCL 5 MG TAB PO SCH (20:32)
[2018-10-24] MEDS: LEVOTHYROXINE SODIUM 25 MCG TABLET PO SCH (06:06)
[2018-10-24] MEDS: ALLOPURINOL 300 MG TAB PO SCH (07:43)
[2018-10-24] MEDS: AMLODIPINE BESYLATE 5 MG TAB PO SCH (07:43)
[2018-10-24] MEDS: ENALAPRIL MALEATE 10 MG TAB PO SCH (07:43)
[2018-10-24] MEDS: CARVEDILOL 25 MG TAB PO SCH (07:45)
[2018-10-24] MEDS: POTASSIUM CHLORIDE 10 MEQ TABCR PO SCH (07:46)
[2018-10-24] MEDS: FUROSEMIDE 40 MG TAB PO SCH (07:46)
[2018-10-24] MEDS: CIPROFLOXACIN 500 MG TAB PO SCH (07:47)
[2018-10-24] MEDS: THIAMINE HCL 100 MG TAB PO SCH (07:47)
[2018-10-24] MEDS: FOLIC ACID 1 MG TAB PO SCH (07:47)
[2018-10-24] MEDS: CEROVITE ADV FORMULA TAB PO SCH (07:48)
[2018-10-24] MEDS: DUTASTERIDE 0.5 MG CAPSULE PO SCH (07:48)
[2018-10-24 07:49] LABS: Prothrombin Time 19.9 Seconds (9.0-12.0)
[2018-10-24] MEDS: DICLOFENAC SOD 1% GEL 100 GM TUBE EXT SCH (09:44)
[2018-10-24] MEDS: COLLAGENASE OINT 30 GM TUBE EXT SCH (10:00)
--- NOTE | 2018-10-29 18:32 | Discharge Summary ---
Date of Service date of admission - October 10, 2018 date of discharge - October 24, 2018 Admission HPI Per Admitting Provider 83 y/o AA male who presented with weight loss and recent falls. states that pt has lost about 50lbs over the last 5 months. Pt states he has no appetite. He might eat a few bites at a meal, but then doesn't want any further. No abd pain, n/v/d. No blood in his stools. He and his do not think that pt has ever had a colonoscopy. There is no particular reason why he did not have testing in the past. He has never had weight loss like this in the past. There have been no purposeful dietary modifications. Pt has seen PCP for this issue. Labs and a CT of the abdomen & pelvis were done at that time. He was started on remeron about 2 weeks ago to help promote weight gain. There was initially an increase in appetite but it did not last. Pt fell about 2 weeks ago. He cannot tell me details about this fall other than he believes that he tripped on something in the home and fell onto his right side. There was no LOC and he did not hit his head. states that he developed a "blood blister" on his L buttock after this and today she noted that it had turned black. They called the PCP's office and were directed to the ED for evaluation. Pt denies fever, SOB, chest pain, LE pain or swelling. Pt states he has no specific complaints at this time. No new pain in any location. Denies any unusual bleeding or bruising. Pt states he follows with urology. He has recurrent UTI issues. Pt was on coumadin 4mg QD until recently when he had an INR >6. This was changed to 3mg 3x/week with 4mg other days. He also has had his BP meds stopped due to hypotension over the last 2 weeks. Principal Diagnosis falls in the setting of severe protein calorie malnutrition and failure to thrive Discharge Exam Constitutional + altered mental status (due to dementia (baseline)) and + frail appearing; + not well developed, + not well nourished and no acute distress ENMT external ear and nose normal, oropharynx normal Respiratory normal respiratory effort, lungs clear to auscultation Cardiovascular Rate/Rhythm: regular rate and regular rhythm Heart Sounds: normal S1 and normal S2; no murmur Vessels: posterior tibial pulses present and dorsalis pedis pulses present; no JVD Extremities: + edema (1-2+ b/l ) Gastrointestinal (Abdomen) normal bowel sounds, soft, nontender, no hepatosplenomegaly Psychiatric Orientation: alert, oriented to person and oriented to place; + not oriented to time Discharge Data Allergies Allergy/AdvReac Type Severity Reaction Status Date / Time No Known Drug Allergies Allergy Verified 10/10/18 13:48 Consultations 1. cardiology - Ketan Wade MD 2. PT, OT 3. wound care nurse 4. wound care provider - Olga Munoz DO Ordered Studies 1. CT head - Impression: No acute intracranial abnormality. 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 2. LLE venous doppler study - negative for DVT. 3. Debridement of left buttock ulcer by wound care provider. 4. pacemaker interrogation Hospital Course (1) Failure to thrive: The patient has had significant failure to thrive in the 6 months leading up to this hospitalization with 50 pounds of weight loss, severe protein calorie malnutrition, falls, development of a pressure ulcer of the buttocks, progressive dementia, etc. He was noted to have pancytopenia, thiamine deficiency, folate deficiency, and an e.coli UTI while hospitalized. It appears the pancytopenia has been present going back to at least January 2017 based on records. His eosinophilia has also been present since 2017. His eating did improve while here. Nutritional deficiencies were supplemented. He received local wound care for his left buttock ulcer. PT/OT both advised placement for rehab. Thus, he is transferring to the [facility] in [place] for post-discharge care & rehab. 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 Recommend urgent/rox follow-up with hematology/oncology for additional testing & work-up. (3) Severe protein-calorie malnutrition: Continue multivitamin indefinitely. Continue thiamine and folic acid supplementation for 1 month only. (4) Falls: Related to weakness from malnutrition, nutritional deficiencies, weight loss, dementia, UTI. Newly found hypothyroidism could have contributed mildly as well. Seen by PT/OT - rehab advised. (5) Weight loss: Certainly some of his weight loss could be from advancing dementia but an underlying malignancy could be present. See discussion above in "pancytopenia." Hematology/oncology consultation advised. Placed on remeron 7.5mg daily to help promote weight gain. (6) Unstageable pressure ulcer of left buttock: Seen by the wound care nurse and wound care physician. Had bedside debridement by the physician. Following such once daily santyl's ointment covered with optifoam recommended. Culture from this wound grew coag negative staph. (7) UTI (urinary tract infection): Culture grew e.coli. Likely 2nd to BPH. Sees [facility] - Dr. Shahram Madera. Prior urine culture from 12/2017 was E. coli resistant to bactrim. Urine culture here is again E. coli resistant to Bactrim. Received about 2 weeks of IV/PO antibiotics (cipro) while hospitalized. Advise 2 more weeks of oral cipro to cover for the possibility of prostatitis. (8) BPH (benign prostatic hyperplasia): Continue flomax and dutasteride. Follows with [facility] and it was suggested in the past to get TURP but never pursued by patient. (9) Dementia: Advanced, progressive. Continue donepezil. Follows with Dr. Elias Plata of [facility]. Replace thiamine deficiency (level was 6) with 1 month of high-dose thiamine supplementation. (10) Permanent atrial fibrillation: Continue coumadin 2.5mg daily. INR on day of discharge was 2. INR had been between 2-3 in the 7 days prior to discharge. Recommend INR recheck upon admission to [facility] home to ensure stability. (11) Biventricular ICD (implantable cardioverter-defibrillator) in place: Placed for syncope in setting of severe systolic CHF with EF <30% (EF later improved to 40-45% in 2017). Follows with Dr. Ketan Wade at [facility]. Pacemaker was interrogated while hospitalized. Had episode of ventricular tachycardia months ago with appropriate discharge of shock then but none since that time. Thus, his recent falls were NOT related to dysrhythmia based on the most recent pacemaker interrogation. (12) H/O: stroke: Residual left-sided weakness. CVA was 12 years ago. Remains on coumadin for Afib. (13) HTN (hypertension): Home meds were initially being held due to hypotension. As his status improved during the stay his coreg, benazepril, lasix, and amlodipine were all resumed. Hydralazine however WAS discontinued. (14) Obstructive sleep apnea: Continue CPAP nightly. (15) CHF (congestive heart failure), NYHA class II: Chronic systolic congestive heart failure. NONISCHEMIC. Stable/compensated while here. With EF as low as <30% requiring ICD placement in approximately 2013. Now EF improved in 2017 to 40-45% with medical management. Continue coreg, benazepril, lasix. Continue low salt diet and fluid restriction. Daily weights advised. (16) Chronic kidney disease, stage III (moderate): (17) Thiamine deficiency: Level of 6 (normal 8-30). Thiamine 200mg BID x 30 days. Could be contributing to falls, progressive memory loss, etc. (18) Folate deficiency: level was 5.5. folic acid 1mg daily x 30 days. (19) Hypokalemia: continue home med of KCl 10 mEq daily. (20) Knee pain: bilateral knee stiffness, but denies pain. due to OA. Continue Voltaren gel. (21) Hypothyroidism: TSH was 7.3. Due to progressive memory loss, failure to thrive, etc a decision was made to initiate replacement. Started on levothyroxine 25mcg daily. Recommend repeat TSH in 4-6 weeks as outpatient. Total Time Total Time Spent Total Time Spent (In Minutes): 50 Total Time Includes: Examination of the Patient, Discharge Planning and Medication Reconciliation Discharge Plan Discharge Items Patient Disposition: Transfer [facility] Fac Reason For Visit: ANEMIA Discharge Diagnosis: 1. failure to thrive 2. dementia 3. folic acid deficiency 4. b1 (thiamine) deficiency 5. pancytopenia with recent weight loss - very concerning for primary bone marrow problem -- [facility] follow-up advised 6. severe protein calorie malnutrition - modestly improved Discharge Goals: Diagnostic testing and Therapeutic intervention Activity: Resume your previous activity Non-emergency contact: Primary Care Provider Call non-emergency contact if: you have any medication questions, your symptoms worsen and your temperature is above 100.5 Follow-up/Referrals: Aj Uribe MD [Primary Care Provider] - Ketan Wade MD [Physician] - (see Dr Ketan Wade, [facility], in 1-2 weeks for CHF, a.fib) dEdy Arias DO [Physician] - (please see Dr Eddy Arias - [facility] - or any cryptologic technician technical/oncologist ([place] or [place]) - rox, preferably within 1-2 weeks.) Diet: Heart Healthy Fluids: 1800ml (7 cups) Addtl Provider Instructions: Mr Tovar was treated for failure to thrive, weight loss, malnutrition, various nutritional deficiencies (vitamin B1, folic acid, etc), CHF, dementia. He was found to have a UTI and there is also suspicion that he may have prostatitis as well. He received antibiotics for such. He has evidence of significant pancytopenia. Exact etiology is uncertain but concerning in light of his extensive weight loss in the last year (possibly 40 pounds per ). Recommendations - 1. cipro 500mg twice daily for 14 more days. This is for UTI and/or prostatitis. 2. thiamine 200mg twice daily for 1 month. 3. folic acid 1mg daily for 1 month. 4. multivitamin daily indefinitely. 5. levothyroxicine 25mcg once daily every morning. This is a new prescription. 6. warfarin 2.5mg daily for a.fib. This is a new dose for you. 7. probiotics (saccharomyces) daily for 14 days. 8. left buttock ulcer -- apply santyl's ointment in thin layer; cover with optifoam. Change daily. 9. Labs -- * daily INR for the next 3-4 days to ensure stability; INR goal is 2-3. * repeat TSH in 4 weeks. * repeat CBC and BMP in 3-4 days for stability. * repeat folic acid level and thiamine level in 4 weeks. 10. Check daily weights on standing scale; patient has congestive heart failure with reported EF of 40-45%. If any weight gain of more than 2-3 pounds in 1-2 days please inform medical di rosa right away. 11. CHF instructions - Call 911 and go to the Emergency Room if: * You have tightness or pain in your chest that does not go away with rest or Nitroglycerin * You are very short of breath even with rest Call your doctor if any of the following symptoms or problems start or get worse: * Shortness of breath or difficulty breathing * Wake up at night short of breath * Chest pain * Cough * Swelling of your hands, fee, or legs * More fatigued or tired with your normal activity * Palpitations - sudden fast heart beats WEIGHT * Weigh yourself every morning after using the bathroom. * Use the same scale. * Wear the same amount of clothing. * Write your weight down on your chart. * Call your doctor if you gain more than 2-3 pounds in 1-2 days. MEDICATIONS * Use this discharge instruction sheet for instructions. * Take your medications at the time your doctor ordered. * Do not skip a dose of your medicines. * If you miss a dose of medicine, take as soon as possible, but DO NOT DOUBLE A DOSE. * Read your medicine information when you get home. * Know all of the side effects of your medicine. * Call your doctor's office if you have any side effects. * Be sure all of your doctors know what medicine and herbs you take (including cold, flu, and herbal medicine). * Pain Medicine: If you do not get relief from your pain, please call your doctor for help. Take the following with you to your follow-up doctor appointments: * Weight Chart * Medication List * List of questions 11. BIPAP at night-time -- patient's is bringing home unit. Also use during the day for any prolonged nap. Follow-up - 1. see ANY cryptologic technician technical/oncologist - [facility] - 1-2 weeks would be ideal. Diagnosis - pancytopenia, eosinophilia, weight loss. [place] or [place] - whoever can see you first. 2. see your hotel concierge, Dr Wade, within 1-2 weeks. [facility]. 3. see your family doctor, Dr Uribe, within 1 week (or the medical office technologist at the [facility]). Prescriptions: New warfarin [Coumadin] 2.5 mg Tablet 2.5 mg PO DAILY@1600 Qty: 30 RF: 2 ciprofloxacin HCl 500 mg Tablet 500 mg PO BID 14 Days Qty: 28 RF: 0 levothyroxine [Synthroid] 25 mcg Tablet 25 mcg PO DAILYBB Qty: 30 RF: 5 folic acid 1 mg Tablet 1 mg PO QAM Qty: 30 RF: 0 Santyl 250 unit/gram Ointment 1 applic EXT DAILY@0800 Qty: 30 RF: 0 diclofenac sodium [Voltaren] 1 % Gel 1 applic EXT QID Qty: 1 RF: 1 Certavite-Antioxidant 18-400 mg-mcg Tablet 1 tab PO QAM Qty: 90 RF: 11 thiamine HCl (vitamin B1) [Vitamin B-1] 100 mg Tablet 200 mg PO BID Qty: 120 RF: 0 Saccharomyces boulardii 250 mg capsule 250 mg PO DAILY 14 Days Qty: 14 RF: 0 Continued donepezil 5 mg tablet 5 mg PO QPM Qty: 90 RF: 0 dutasteride 0.5 mg capsule 0.5 mg PO QAM Qty: 90 RF: 0 furosemide 40 mg tablet 40 mg PO QAM Qty: 90 RF: 0 potassium chloride 10 mEq tablet extended release 10 meq PO QAM Qty: 90 RF: 0 tamsulosin 0.4 mg capsule 0.4 mg PO HS Qty: 90 RF: 0 allopurinol 300 mg tablet 300 mg PO QAM Qty: 90 RF: 0 azelastine 137 mcg (0.1 %) aerosol,spray 2 sprays intranasal DAILY PRN (Reason: Congestion) RF: 0 carvedilol 25 mg tablet 25 mg PO BID Qty: 180 RF: 0 ergocalciferol (vitamin D2) 50,000 unit capsule 50,000 units PO MONTHLY Qty: 21 RF: 0 amlodipine-benazepril 5-20 mg capsule 1 cap PO QAM RF: 0 mirtazapine [Remeron] 15 mg tablet 7.5 mg PO HS RF: 0 Discontinued warfarin [Jantoven] 4 mg tablet 4 mg PO 4XWK RF: 0 warfarin 4 mg tablet 2 mg PO 3XWK RF: 0 hydralazine 50 mg tablet 50 mg PO TID RF: 0 Stand-Alone Forms: [facility] Discharge Orders: Discharge Order (Routine); Ordered 10/24/18 Ordered By: Tony Elliott Admission Data Admit Date/Time: 10/10/18 15:39 Attending Provider: Tony Elliott Admit Provider: Haley London Primary Care Provider: Aj Uribe Other Providers: Jayden Jiménez ; Dawson Berry ; Cornel Lopez ; Ketan Wade ; Osmani Anthony Jr ; Kobi Ken ; Meg Meneses ; Xiao Elizabeth ; Brenden Tovar ; Brenden Holley ; Justino Rios ; Giancarlo Ramsey ; Heavenly Lantigua ; Yuridia Dempsey ; Arminda Peters Service: Medical Other Interventions: Discharge Summary Assessment (RN) Last Done: 10/24/18 12:05 Pending Studies at Discharge: No DC Date/Time DO NOT enter until pt leaves facility: 10/24/18 12:56
== END 2018-10-24 12:56 | DRG 981 ==
LOC: ED 11:51 → SUATTDRO 15:39 → 2W 15:39